=== PATIENT | female | born 2000 | race Caucasian/White ===

== ENCOUNTER 2025-08-27 20:36 | Emergency (ER) | payer OTHER, SELFPAY ==
--- NOTE | ~2025-08-27 | XR_ITS ---
CLINICAL HISTORY: right shoulder pain injury 4 view right shoulder Comparison: None provided Findings: Bones intact. No dislocations. No significant loss of joint space or osteophytes. No erosions. No radiopaque foreign body. IMPRESSION: 1. No acute fracture This document has been electronically signed by: Stefanie Carlton MD on 08/27/2025 21:52:42
[2025-08-27 20:39] VITALS: BP 116/80; PULSE 74; RESP 16; TEMP 36.9; O2SAT 98; BMI 25.6
--- NOTE | 2025-08-27 21:06 | ED_ITS ---
HPI - Extremity Problem General Chief complaint: Extremity Injury, Upper Stated complaint: right shoulder bed , moving patinets Time Seen by Provider: 08/27/25 20:51 Source: patient Mode of arrival: ambulatory Limitations: no limitations History of Present Illness ED Provider: Dr. Eric HPI Narrative: 25-year-old female history of right rotator cuff injury presented hospital today after injury of lifting the patient. Patient has had her right arm underneath the patient's armpit in attempted to lift the patient's upper when she felt a sudden pop in the right shoulder. Patient is able to abduct the right shoulder however at a certain degree she feels a clicking noise and pain upon ab duction. Related Data Allergies Allergy/AdvReac Type Severity Reaction Status Date / Time amoxicillin Allergy Intermediate Hives Verified 08/27/25 20:40 latex Allergy Intermediate Hives Verified 08/27/25 20:40 Review of Systems Review of Systems: Pertinent review of systems as mentioned in HPI. All other system otherwise negative. PMFSH Past Medical History [facility] Narrative: Medical history as mentioned in HPI Social History Social History Advance Directives: No Advance Directives Information Provided: Yes Physical Exam Exam: Exam: General: Pleasant, no distress, interacting appropriately Head: Normacephalic, atraumatic Extremities: Right supraspinatus tenderness on palpation, CMS intact in right upper extremity Psychiatric: Appropriate mood and thoughts Vital Signs: Vital Signs: Last Vital Signs Temp 98.5 F 08/27/25 20:39 Pulse 74 08/27/25 20:39 Resp 16 08/27/25 20:39 BP 116/80 08/27/25 20:39 Pulse Ox 98 08/27/25 20:39 O2 Del Method Room Air 08/27/25 20:39 BMI result Body Mass Index 25.6 Medications Administered Discontinued Medications Generic Name Dose Route Start Last Admin Trade Name Freq PRN Reason Stop Dose Admin Acetaminophen 975 mg 08/27/25 20:50 08/27/25 21:07 Acetaminophen 325 Mg Tablet PO 08/27/25 20:51 975 mg ONCE ONE Administration Ibuprofen 400 mg 08/27/25 20:50 08/27/25 21:00 Ibuprofen 400 Mg Tablet PO 08/27/25 20:51 Not Given ONCE ONE Medical Decision Making Medical Decision Making MDM Narrative: 25-year-old female presented hospital today for right shoulder pain. Based on my exam I do not think this is dislocated or have a fracture. X-ray will be obtained to rule this out. I suspect patient likely injure her right rotator cuff specifically the supraspinatus muscle. It appears that she has worsening pain when she abduct a certain point past 90 degree. Tylenol ibuprofen will be provided the patient. Patient will be discharged with close outpatient follow up with the orthopedic team. We will likely need an outpatient MRI to further assess the cause of her pain Differential Diagnosis Differential Diagnoses: The differential diagnosis associated with the presentation includes Shoulder fracture, rotator cuff injury, supraspinatus tear, labral injury Independent Interpretation I performed an independent interpretation of an: Plain X-Ray Radiology Impression Discussion of test interpretation with radiology: I have reviewed the radiologist's reading. Discharge Plan Discharge Clinical Impression: Injury of shoulder Qualifiers: Encounter type: initial encounter Laterality: right Qualified Code(s): S49.91XA - Unspecified injury of right shoulder and upper arm, initial encounter Supraspinatus sprain Qualifiers: Encounter type: initial encounter Laterality: right Qualified Code(s): S46.811A - Strain of other muscles, fascia and tendons at shoulder and upper arm level, right arm, initial encounter Patient Disposition: Home, Self-Care Instructions: Rotator Cuff Injury (ED), Rotator Cuff Injury Exercises (DC) Referrals: [facility] Orthopedic Surgeons [Provider Group] Clinical Impression: Supraspinatus sprain Print Language: Latvian
--- OUTSIDE RECORDS SUMMARY | 2025-08-27 21:13 | XMS_ITS | Patient Health Record ---
Author Organization [facility] Address [address] [place] [phone] Allergies Allergen (clinical drug ingredient) Drug/Non Drug Allergy documented on EMR Reaction Allergy Type Onset Date Status amoxicillin Amoxicillin Unknown Drug Allergy Act abdi Latex Latex Unknown Allergy Active Penicillin Unknown Drug Allergy Active Reason For Referral No Information Problems Problem Type SNOMED Code ICD Code Onset Dates Problem Status W/U Status Risk Notes Problem Acute migraine (9534048254054 08) Acute migraine (G43.909) Active confirmed Plan Of Treatment No Information Insurance Providers Payer Name Payer Address Payer Phone Subscriber Number Group Number Insured Name Patient Relationship to Insured Coverage Start Date Coverage End Date [facility] [address] [place] [address] [id number] Siria Morrison Self - patient is the insured Medications Administered Medication Instructions Date of Administration Dosage Notes ketorolac 60mg/2mL 01/22/2024 1 mL
--- OUTSIDE RECORDS SUMMARY | 2025-08-27 21:13 | XMS_ITS | Clinical Summary ---
Author Organization [facility], [facility], and [facility] Address [address] [place] [address] Care Team Providers Care Design Technology Teacher Name Role Phone Art Whalen MD Unavailable Siddhartha Ocampo MD Unavailable [phone] Malcolm Frausto Primary Care Provider [phone] Allergies Active Allergy Reactions Criticality Noted Date Comments Amoxicillin-Pot Clavulanate Anaphylaxis, Hives,Rash,SOB /Dyspnea,Wheezing/Asthma High 1998 Latex Anaphylaxis High 04/05/2016 Penicillins Anaphylaxis,Hives,Ra sh,SOB /Dyspnea,Wheezing/Asthma High 1998 Medications Topiramate (TOPAMAX OR) 0 Active STELARA 90 MG/ML Solution Prefilled Syringe 1 Active Fluticasone Furoate-Vilant heladio (BREO ELLIPTA) 100-25 MCG/INH Aerosol Powder Breath ActivatedIndic ations:Asthma Inhale See Administration Instructions. Indications: Asthma 1 Each 3 1 Active metoclopramide HCl (REGLAN) 10 MG TabletIndicati ons:Nausea and Vomiting Take 1 tablet (10 mg) by mouth 3 Times a Day As Needed for up to 7 days. 21 tablet 5 Active Active Problems Problem Noted Date Diagnosed Date Chest pain 03/04/2021 Class 2 obesity in adult 03/04/2021 Family History Medical History Relation Comments Diabetes Father Hypertension Father Myocardial Infarction Father Diabetes Mother Hypertension Mother Stroke Paternal Grandmother Relation Status Comments Father Alive Mother Alive Paternal Grandmother Social History Tobacco Use Types Packs/Day Years Used Date Smoking Tobacco: Former Cigarettes Q uit: 04/22/2017 Alcohol Use Standard Drinks/Week Comments Yes 1 (1 standard drink = 0.6 oz pur e alcohol) Comments Unknown Sex and Gender Information Value Date Recorded Sex Assigned at Female 02/28/2021 3:42 PM EDT Legal Sex Female 12:11 PM EST Gender Identity Female 02/28/2021 3:42 PM EDT Sexual Orientation Straight 02/28/2021 3: 42 PM EDT 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 Not on file Not on file Last Filed Vital Signs Vital Sign Reading Time Taken Comments Blood Pressure 120/74 04/06/2025 5:13 PM EDT Pulse 95 04/06/2025 5:13 PM EDT Temperature 36.5 C (97.7 F) 04/06/2025 5:13 PM EDT Respiratory Rate 16 04/06/2025 5:13 PM EDT Oxygen Saturation 98% 04/06/2025 5:13 PM EDT Inhaled Oxygen Concentration - - Weight 63.5 kg (140 lb) 04/06/2025 5:13 PM EDT Height 157.5 cm (5' 2 ) 04/06/2025 5:13 PM EDT Body Mass Index 25.61 04/06/2025 5:13 PM EDT Plan of Treatment Health Maintenance Due Date Last Done Comments HIV SCREENING 2011 Pap Smear 2019 IMM: HPV (1 - 3-dose SCDM series) 2025 COVID-19 Vaccine (2023-2 5 season) 2025 IMM: Influenza (#1) 2025 09/30/2017 IMM: DTap/ Tdap/ Td (3 - Td or Tdap) 10/23/2032 10/23/2022, 11/29/2017 IMM: RSV (1 - 1-dose 75+ series) 2073 Hepatitis C screening Completed 05/15/2022 IMM: Meningococcal B Aged Out No long er eligible based on patient's age to complete this topic Pneumococcal Vaccine: Pediatrics (0 to 5 Years) and At-Risk Patients (6 to 49 Years) Aged Out No longer eligible b ased on patient's age to complete this topic Insurance [facility] ESSENTIAL PLAN [id number]&[id number] [facility] [employer] 1&2&200-250 Care Teams Design Technology Teacher Relationship Specialty Start Date End Date NehemiahMalcolm quinones [address] [place] [address] PCP - General 04/06/25 Art Whalen MD [address] [place] [address] Medicine - Cardiology 02/28/21 Siddhartha Ocampo MD [address] [place] [phone] Medicine - Pulmonology 02/28/21
--- OUTSIDE RECORDS SUMMARY | 2025-08-27 21:13 | XMS_ITS | Patient Health Record ---
Author Organization [facility] JEWELRY TECHNICIAN, Address [address] [place] [address] Care Team Providers Care Software Testing Specialist Name Role Phone NO, PCP Primary Care Provider Adiel Vilchis Unavailable [phone] Allergies Allergen (clinical drug ingredient) Drug/Non Drug Allergy documented on EMR Reaction Allergy Type Onset Date Status Penicillin Unknown Drug Allergy Active Reason For Referral No Information Medications Medication SIG (Take, Route, Frequency, Duration) Notes Start Date End Date Status Breo Ellipta Active Plan Of Treatment No Information Insurance Providers Payer Name Payer Address Payer Phone Subscriber Number Group Number Insured Name Patient Relationship to Insured Coverage Start Date Coverage End Date [facility] [address] [place] [address] [id number] Stephen Mujica [facility] Child - Insured has Financial Responsibility Medical (General) History Medical History History ICD Code Asthma
[2025-08-27 22:07] VITALS: BP 116/80; PULSE 74; RESP 16; TEMP 36.9; O2SAT 98
--- NOTE | 2025-08-27 22:14 | PC.NURSE ---
Sling applied to right arm/shoulder. No evidence of fracture. Follow up with work connection/ortho. Discharged home.
== END 2025-08-27 22:07 | disposition home or self-care (01) ==
PROVIDERS: Emergency Provider Student in an Organized Health Care Education/Training Program
DX: S49.91XA Unspecified injury of right shoulder and upper arm, initial encounter (principal); S46.811A Strain of other muscles, fascia and tendons at shoulder and upper arm level, right arm, initial encounter; X50.0XXA Overexertion from strenuous movement or load, initial encounter; Y93.F2 Activity, caregiving, lifting; Y92.89 Other specified places as the place of occurrence of the external cause; Y99.0 Civilian activity done for income or pay; M25.511 Pain in right shoulder
CPT/HCPCS: 73030; 99283

== ENCOUNTER → 2025-08-27 20:59 | Outpatient (BNV) | payer OTHER, SELFPAY | PROVIDERS: Emergency Provider Student in an Organized Health Care Education/Training Program; Visit Provider Student in an Organized Health Care Education/Training Program | DX: S49.91XA Unspecified injury of right shoulder and upper arm, initial encounter (principal) | CPT/HCPCS: 73030 ==

== ENCOUNTER → 2025-08-28 13:39 | Outpatient (BNVA) | payer OTHER, SELFPAY | PROVIDERS: Visit Provider Registered Nurse | DX: Z13.89 Encounter for screening for other disorder (principal) | CPT/HCPCS: 99203 ==

== ENCOUNTER → 2025-09-06 14:33 | Outpatient (BNVA) | payer OTHER, SELFPAY | PROVIDERS: Visit Provider Physician Assistant Medical | DX: Z13.89 Encounter for screening for other disorder (principal) | CPT/HCPCS: 99213 ==

== ENCOUNTER → 2025-09-27 11:42 | Outpatient (BNVA) | payer OTHER, SELFPAY | PROVIDERS: Visit Provider Physician Assistant Medical | DX: Z13.89 Encounter for screening for other disorder (principal) | CPT/HCPCS: 99213 ==

== ENCOUNTER 2025-10-01 07:25 | Outpatient (REF) | payer OTHER, SELFPAY ==
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
--- NOTE | ~2025-10-01 | MR_ITS ---
CLINICAL HISTORY: RT ROTATOR CUFF INJURY MR right shoulder without gadolinium Comparison: None provided Findings: No acute fracture or pathologic bone lesion. No significant degenerative changes. Type 1 acromion. Mild hypertrophic distal clavicle changes flattens the opposing supraspinatus. Trace/physiological joint effusion. No rotator cuff tears. Mild supraspinatus tendinosis. The long head of biceps is intact. No tears of the glenoid labrum. IMPRESSION: No rotator cuff tear. Mild supraspinatus tendinosis. This document has been electronically signed by: Samantha Osborne MD on 10/02/2025 11:19:49
--- OUTSIDE RECORDS SUMMARY | 2025-10-01 07:27 | XMS_ITS | Clinical Summary ---
Author Organization [facility], and [facility] Address [address] [place] [address] Care Team Providers Care Asphalt Heater Tender Name Role Phone Art Whalen MD Unavailable Siddhartha Ocampo MD Unavailable [phone] Malcolm Frausto Primary Care Provider [phone] Allergies Active Allergy Reactions Criticality Noted Date [...] - 3-dose SCDM series) 2025 COVID-19 Vaccine (2024-2 6 season) 2025 IMM: Influenza (#1) 2025 09/30/2017 [...] patient's age to complete this topic Insurance [facility] ESSENTIAL PLAN 1&[id number]&200-250 [facility] E[employer]AN 1&2&200-250 Care Teams Asphalt Heater Tender Relationship Specialty Start Date End Date NehemiahMaloclm quinones [address] [place] [address] PCP - General 04/06/25 Art Whalen MD [address] [place] [address] Medicine - Cardiology 02/28/21 Siddhartha Ocampo MD [address] [place] [phone] Medicine - Pulmonology 02/28/21
--- OUTSIDE RECORDS SUMMARY | 2025-10-01 07:28 | XMS_ITS | Data Portability ---
Author Organization [place] - .[facility], [facility] Address [address] [place] [address] Assessment No assessment recorded. Plan of Treatment Reminders Order Date Submit Date Provider Last Modified By Organization Details Last Modified Time Details Appointments None recorded. Lab None recorded. Referral None recorded. Procedures None recorded. Surgeries None recorded. Imaging XR, finger(s), 2 or more view - eval for possible fx...PE: tenderness to the right 3rd finger with tenderness and swelling... VC...WET READ. 2021 022 [facility], [address] , [place], [address], 11:02:10 XR, hand, 3 or more view - eval for possible fx...PE: tenderness to the right 3rd finger with tenderness and swelling... VC...WET READ. 2021 022 [email or web address] [facility], [address] , [place], [address], 11:02:10 Medication Orders None recorded. Patient TargetsNo targets recorded. Patient Instructions Encounter Date Encounter Id Patient Instructions Last Modified By Organization Details Last Modified Time 08/23/2022 [id number] A healthy lifestyle: care instructions [email or web address] Not available 08/24/2022 11:02:10 Reason for Referral None Reported. Results Created Date Observation Date Name Description Value Unit Range Abnormal Flag Note LastModifiedBy Organization Detail LastModifiedTime 08/23/2008/23/2022 XR, hand, 3 or more view No observ ation record ed. [id number] [facility] [address] [facility], [place], [address], 08/24/2022 08:15:59 Result Notes None recorded. Problems Name Problem SNOMED Code Status Onset Date Resolution Date Notes Provider Name and Address Organization Details Recorded Time Migraine 71742504 Active 022 DANNY Terrell - .[facility] 08/23/2022 14:46:09 Problem Notes None recorded. Procedures Surgical History Date Name Laterality Status Provider Name and Address Organization Details Recorded Time . Ortho - RIGHT Upper Extremity completed Diogo DELGADO - .[facility] 08/23/2022 16:22:54 Imaging Results None recorded. Procedure Notes None recorded. Medical Equipment None Reported. Allergies Allergen ID Allergen Name Allergen Category Reaction Reaction Severity Criticality Documentation Date Start Date Code Code System Note Provider Name and Address Organization Details Recorded Time 2041359 Product containin g penicilli n (product) medicatio n Not available Not available Not available 08/23/2022 69916 8001 SNOMED DANNY Terrell - .[facility] 14:46:04 Medications Name Sig Start Date Stop Date Status Note LastModified by Organization Details LastModified Time active Not Available Not Avai lable Not Available Vitals Date Recorded Body height Body mass index (BMI) Body weight Body temperature Heart rate Respiratory rate Oxygen saturation Oxygen saturation in Arterial blood by Pulse oximetry Systolic And Diastolic Provider Name and Address Organization Details Last Updated DateTime 157.48 cm 35.7 kg/m2 36374.5 1 g 98.6 [degF] 83 /min 16 /min 98 % 98 % 108/72 mm[Hg] Diogo DELGADO - .[facility] 14:48:41 Social History Question Answer Notes LastModified by Organizat ion Details LastModified Time Tobacco Smoking Status Never Smoker DANNY Terrell - .[facility] 08/23/2022 14:46:54 RISK LEVEL - Segmentation Level 1 - Healthy [email or web address] Information not available 10/02/2022 What Was The Date Of Your Most Recent Tobacco Screening? 08/23/2022 [email or web address] Information not available 08/23/2022 Sex: Unknown Functional Status None recorded. Mental Status None recorded. Family History Relationship Description Onset Age of this Age Resolved Age Notes LastModified by Organization Details LastModified Time Father Diabetes mellitus [email or web address] Not available 2021 14:46:37 Father Hypertensive disorder Not available 2021 14:46:46 Mother Diabetes mellitus [email or web address] Not available 2021 14:46:37 Mother Hypertensive disorder [email or web address] Not available 2021 14:46:46 Medical History No medical history recorded. Gynecological HistoryNo gynecological history recorded. Obstetrics History GPAL:G 0 P 0 0 0 0 Past Encounters Encounter ID Performer Location Encounter Start Date Encounter Closed Date Diagnosis/Indication Diagnosis SNOMED-CT Code Diagnosis ICD10 Code Diagnosis IMO Codes Diagnosis Note [id number] CHAYA KRAUS_ WILLIAM [address] [phone] 08/23/2022 14:25:03 08/23/2022 15:52:54 Injury of finger 23677928 S69.91XA Fracture o f middle phalanx of finger 946430427 S62.620A Health Concerns Section Related Observation LastModified by Organization Detai ls LastModified Time None Recorded Concern Status LastModified by Organization Details LastModified Time None Recorded Advance Directives Directive None Recorded Payers Insurance Date Sequence Insurance Name Policy Number Policy Le Covered Member ID Le Member ID Guarantor Name 08/23/2022 1 [facility] [id number] Stephen Shafer Mujica [id number] AB Siria [place] Notes Date Note Type Note Provider Name and Address Organization Details Recorded Time 2 text/html Finger 3rd digit complaint (MIDDLE) - cmdReported by PatientHPIFor patient presents with, patient reportsright finger 3rd digit complaint (middle) which began a few hours ago.22 yoF c/o right middle finger pain sustained shortly prior to arrival. Pt crushed her middle finger a few hours ago after a 200lb box landed on it while in a store. Pt has some swelling and bruising around the joint. Pt has iced the finger since the injury has occurred. Pt has nerve damage from prior incident that affects her right side from the elbow to her fingers but no new paresthesiasReports limited ROM due to painOf note, [facility] in [facility] and denies dysuria, abdominal pain, vaginal bleeding, back painDenies skin wound, nail involvement wrist pain; Pt is R hand dominant Flori walker, [place] - .[facility] 08/23/2022 17:41:36 OBGyn Episode No OBEpisode recorded.
--- OUTSIDE RECORDS SUMMARY | 2025-10-01 07:28 | XMS_ITS | Patient Health Record ---
Author Organization [facility] Address [address] [place] [phone] Allergies Allergen (clinical drug ingredient) Drug/Non Drug Allergy documented on EMR Reaction Allergy Type Onset Date Status amoxicillin Amoxicillin Unknown Drug Allergy Act abdi Latex Latex Unknown Allergy Active Penicillin Unknown Drug Allergy Active Reason For Referral No Information Problems Problem Type SNOMED Code ICD Code Onset Dates Problem Status W/U Status Risk Notes Problem Acute migraine (8456878725917 08) Acute migraine (G43.909) Active confirmed Plan Of Treatment No Information Insurance Providers Payer Name Payer Address Payer Phone Subscriber Number Group Number Insured Name Patient Relationship to Insured Coverage Start Date Coverage End Date [facility] [address] [place] [address] [id number] Siria Morrison Self - patient is the insured Medications Administered Medication Instructions Date of Administration Dosage Notes ketorolac 60mg/2mL 01/22/2024 1 mL
--- OUTSIDE RECORDS SUMMARY | 2025-10-01 07:28 | XMS_ITS | Data Portability ---
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 Handouts provided with good comprehension noted. Plan: Replace 2 meals/day with protein shake, very low CHO/fat/Na 60-80 gm Pro/day diet; 64 oz VLC fluids; support groups; meal planning/timing; practice eating technique. Encouraged exercise as tolerated; Food journal daily; MVI QD, Ca+D BID OR MVI patch daily as tolerated. RTO x 1 month. -- Rosario Rich RD CDN Not available 06/22/2024 09:48:54 06/22/2024 06/22/2024 s/p Laparoscopic sleeve gastrectomy. 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 Handouts provided with good comprehension noted. Plan: Very low CHO/fat/Na 60-80 gm Pro/day diet; 64 oz VLC fluids; support groups; meal planning/timing; practice eating technique. Encouraged exercise as tolerated; Food journal daily; MVI QD, Ca+D BID OR MVI patch daily as tolerated. RTO x 1 month. -- Renetta Vanessa MS, RD, CDN Not available 11/29/2024 14:05:45 Plan of Treatment Reminders Order Date Submit Date Provider Last Modified By Organization Details Last Modified Time Details Appointments None recorded. Lab vitamin B12 + folate, serum or blood 2024 025 [email or web address] Not available 5 07:55:38 ferritin, serum or plasma 2024 025 TEMLA Not available 5 09:05:26 homocystei ne, serum or plasma 2024 025 [email or web address] Not available 5 07:55:38 iron + total iron-jessie ng capacity (TIBC), serum 2024 025 TELMA Not available 5 09:05:21 CBC w/ auto diff 2024 025 TELMA Not available 5 09:05:20 TSH, serum or plasma 2024 025 [email or web address] Not available 5 07:55:38 HbA1c (hemoglobi n A1c), blood 2024 025 TELMA Not available 5 09:05:23 insulin, serum 2024 025 TELMA Not available 5 09:05:25 lipid panel, serum 2024 025 TELMA Not available 5 09:05:21 PTH (parathyro id hormone), intact, serum or plasma 2024 025 TELMA Not available 5 09:05:27 thiamine, quant, serum or plasma 2024 025 [email or web address] Not available 5 07:55:38 vitamin D, 25-hydroxy , total, serum 2024 025 TELMA Not available 5 09:05:24 CMP, serum or plasma 2024 025 TELMA Not available 5 09:05:20 vitamin B12 + folate, serum or blood 2024 025 ehandler Not available 5 11:13:11 ferritin, serum or plasma 2024 025 ehandler Not available 5 11:13:11 homocystei ne, serum or plasma 2024 025 ehandler Not available 5 11:13:11 iron + total iron-jessie ng capacity (TIBC), serum 2024 025 ehandler Not available 5 11:13:11 CBC w/ auto diff 2024 025 ehandler Not available 5 11:13:11 TSH, serum or plasma 2024 025 ehandler Not available 5 11:13:11 HbA1c (hemoglobi n A1c), blood 2024 025 ehandler Not available 5 11:13:11 insulin, serum 2024 025 ehandler Not available 5 11:13:11 lipid panel, serum 2024 025 ehandler Not available 5 11:13:11 PTH (parathyro id hormone), intact, serum or plasma 2024 025 ehandler Not available 5 11:13:12 thiamine, quant, serum or plasma 2024 025 ehandler Not available 5 11:13:12 vitamin D, 25-hydroxy , total, serum 2024 025 ehandler Not available 5 11:13:12 CMP, serum or plasma 2024 025 ehandler Not available 5 11:13:12 zinc, serum or plasma 2024 025 ehandler Not available 5 08:39:51 vitamin B12 + folate, serum or blood 2023 024 charrison 59 Not available 4 10:52:04 ferritin, serum or plasma 2023 024 charrison 59 Not available 4 10:52:04 homocystei ne, serum or plasma 2023 024 charrison 59 Not available 4 10:52:04 iron + total iron-jessie ng capacity (TIBC), serum 2023 024 charrison 59 Not available 4 10:52:04 CBC w/ auto diff 2023 024 charrison 59 Not available 4 10:52:04 TSH, serum or plasma 2023 024 charrison 59 Not available 4 10:52:04 HbA1c (hemoglobi n A1c), blood 2023 024 charrison 59 Not available 4 10:52:04 insulin, serum 2023 024 charrison 59 Not available 4 10:52:04 lipid panel, serum 2023 024 charrison 59 Not available 4 10:52:04 PTH (parathyro id hormone), intact, serum or plasma 2023 024 charrison 59 Not available 4 10:52:04 thiamine, quant, serum or plasma 2023 024 charrison 59 Not available 4 10:52:04 vitamin D, 25-hydroxy , total, serum 2023 024 charrison 59 Not available 4 10:52:04 CMP, serum or plasma 2023 024 TELMA Not available 08:44:36 Referral None recorded. Procedures None recorded. Surgeries None recorded. Imaging None recorded. Medication Orders None recorded. Patient Targets Encounter Date Encounter Id Patient Goals Patient Target Last Modified By Organization Details Last Modified Time 06/21/2024 [id number] 1. prioritize protein 2. maintain fluid intake 3. adhere to the eating behaviors 4. incorporate physical activity as tolerated Not available 06/22/2024 09:49:18 Patient Instructions Encounter Date Encounter Id Patient Instructions Last Modified By Organization Details Last Modified Time 06/22/2024 [id number] Recommend: Bariatric diet and vitamin supplements Physical exercise to reach goal of 10K steps/day Dietitian follow-up, support group and bariatric surgery follow-up. [email or web address] Not available 06/22/2024 07:57:08 11/29/2024 [id number] Discussed protein goals and encouraged consuming at least 60 grams/day. Also encouraged including more veg/fruit. Pt. dislikes water, will only drink sf beverages. Pt. satisfied with current routine. Goal is to lose 10 more lbs Not available 11/29/2024 14:07:45 Reason for Referral None Reported. Results Created Date Observation Date Name Description Value Unit Range Abnormal Flag Note LastModifiedBy Organization Detail LastModifiedTime 04/11/2004/11/2025 CBC WITH DIFFE RENTI AL/PL ATELE T WBC 5.6 x10e3 /uL 3.4-10 .8 normal Not Available [facility] ([facility]) [address] [place], [address], 04/16/2025 09:05:19 04/11/20 25 2025 CBC WITH DIFFE RENTI AL/PL ATELE T RBC 3.94 x10e6 /uL 3.77-5 .28 normal Not Available [facility] ([facility]) [address] [facility], [place], [address], 04/16/2025 09:05:19 04/11/20 25 2025 CBC WITH DIFFE RENTI AL/PL ATELE T hemoglobin 12.0 g/dL 11.1-1 5.9 normal Not Available [facility] ([facility]) [address] [place], [address], 04/16/2025 09:05:19 04/11/2004/11/2025 CBC WITH DIFFE RENTI AL/PL ATELE T hematocrit 37.0 % 34.0-4 6.6 normal Not Available [facility] ([facility]) [address] [place], [address], 04/16/2025 09:05:19 04/11/2004/11/2025 CBC WITH DIFFE RENTI AL/PL ATELE T MCV 94 fL 79-97 normal Not Available [facility] ([facility]) [address] [place], [address], 04/16/2025 09:05:19 04/11/2004/11/2025 CBC WITH DIFFE RENTI AL/PL ATELE T MCH 30.5 pg 26.6-3 3.0 normal Not Available [facility] ([facility]) [address] [place], [address], 04/16/2025 09:05:19 04/11/2004/11/2025 CBC WITH DIFFE RENTI AL/PL ATELE T MCHC 32.4 g/dL 31.5-3 5.7 normal Not Available [facility] ([facility]) [address] [place], [address], 04/16/2025 09:05:19 04/11/2004/11/2025 CBC WITH DIFFE RENTI AL/PL ATELE T RDW 12.5 % 11.7-1 5.4 Not Available [facility] ([facility]) [address] [place], [address], 04/16/2025 09:05:19 04/11/2004/11/2025 CBC WITH DIFFE RENTI AL/PL ATELE T platelets 206 x10e3 /uL 150-45 0 normal Not Available [facility] ([facility]) [address] [place], [address], 04/16/2025 09:05:19 04/11/20 25 2025 CBC WITH DIFFE RENTI AL/PL ATELE T neutrophils 50 % not estab. normal Not Available [facility] ([facility]) [address] [place], [address], 04/16/2025 09:05:19 04/11/20 25 2025 CBC WITH DIFFE RENTI AL/PL ATELE T lymphs 40 % not estab. normal Not Available [facility] ([facility]) [address] [place], [address], 04/16/2025 09:05:19 04/11/20 25 2025 CBC WITH DIFFE RENTI AL/PL ATELE T monocytes 6 % not estab. normal Not Available [facility] ([facility]) [address] [place], [address], 04/16/2025 09:05:19 04/11/20 25 2025 CBC WITH DIFFE RENTI AL/PL ATELE T eos 3 % not estab. normal Not Available [facility] ([facility]) [address] [place], [address], 04/16/2025 09:05:19 04/11/20 25 2025 CBC WITH DIFFE RENTI AL/PL ATELE T basos 1 % not estab. normal Not Available [facility] ([facility]) [address] [place], [address], 04/16/2025 09:05:19 04/11/20 25 2025 CBC WITH DIFFE RENTI AL/PL ATELE T immature cells LOANS OFFICER Not Available [facility] ([facility]) [address] [place], [address], 04/16/2025 09:05:19 04/11/20 25 2025 CBC WITH DIFFE RENTI AL/PL ATELE T neutrophils (absolute) 2.9 x10e3 /uL 1.4-7. 0 normal Not Available [facility] ([facility]) [address] [place], [address], 04/16/2025 09:05:19 04/11/20 25 2025 CBC WITH DIFFE RENTI AL/PL ATELE T lymphs (absolute) 2.2 x10e3 /uL 0.7-3. 1 normal Not Available [facility] ([facility]) [address] [place], [address], 04/16/2025 09:05:19 04/11/20 25 2025 CBC WITH DIFFE RENTI AL/PL ATELE T monocytes(ab solute) 0.3 x10e3 /uL 0.1-0. 9 normal Not Available [facility] ([facility]) [address] [place], [address], 04/16/2025 09:05:19 04/11/20 25 2025 CBC WITH DIFFE RENTI AL/PL ATELE T eos (absolute) 0.2 x10e3 /uL 0.0-0. 4 normal Not Available [facility] ([facility]) [address] [place], [address], 04/16/2025 09:05:19 04/11/20 25 2025 CBC WITH DIFFE RENTI AL/PL ATELE T baso (absolute) 0.1 x10e3 /uL 0.0-0. 2 normal Not Available [facility] ([facility]) [address] [place], [address], 04/16/2025 09:05:19 04/11/20 25 2025 CBC WITH DIFFE RENTI AL/PL ATELE T immature granulocytes 0 % not estab. Not Available [facility] ([facility]) [address] [facility], [place], [address], 04/16/2025 09:05:19 04/11/20 25 2025 CBC WITH DIFFE RENTI AL/PL ATELE T immature grans (abs) 0.0 x10e3 /uL 0.0-0. 1 Not Available [facility] ([facility]) [address] [facility], [place], [address], 04/16/2025 09:05:19 04/11/20 25 2025 CBC WITH DIFFE RENTI AL/PL ATELE T NRBC LOANS OFFICER Not Available [facility] ([facility]) [address] [facility], [place], [address], 04/16/2025 09:05:19 04/11/20 25 2025 CBC WITH DIFFE RENTI AL/PL ATELE T hematology comments: LOANS OFFICER Not Available [facility] ([facility]) [address] [facility], [place], [address], 04/16/2025 09:05:19 04/11/20 25 04/12/2025 COMP. METAB OLIC PANEL (14) glucose 79 mg/dL 70-99 normal Not Available [facility] ([facility]) [address] [place], [address], 04/16/2025 09:05:20 04/11/20 25 04/12/2025 COMP. METAB OLIC PANEL (14) BUN 12 mg/dL 6-20 normal Not Available [facility] ([facility]) [address] [place], [address], 04/16/2025 09:05:20 04/11/20 25 04/12/2025 COMP. METAB OLIC PANEL (14) creatinine 0.61 mg/dL 0.57-1 .00 normal Not Available [facility] ([facility]) [address] [place], [address], 04/16/2025 09:05:20 04/11/20 25 04/12/2025 COMP. METAB OLIC PANEL (14) eGFR 126 mL/mi n/1.7 3 >59 normal Not Available [facility] ([facility]) [address] [facility] [place], [address], 04/16/2025 09:05:20 04/11/20 25 04/12/2025 COMP. METAB OLIC PANEL (14) BUN/creatini ne ratio 20 9-23 normal Not Available [facility] ([facility]) [address] [facility] [place], [address], 04/16/2025 09:05:20 04/11/20 25 04/12/2025 COMP. METAB OLIC PANEL (14) sodium 143 mmol/ L 134-14 4 normal Not Available [facility] ([facility]) [address] [facility] [place], [address], 04/16/2025 09:05:20 04/11/20 25 04/12/2025 COMP. METAB OLIC PANEL (14) potassium 4.2 mmol/ L 3.5-5. 2 normal Not Available [facility] ([facility]) [address] [facility] [place], [address], 04/16/2025 09:05:20 04/11/20 25 04/12/2025 COMP. METAB OLIC PANEL (14) chloride 107 mmol/ L 96-106 above high normal Not Available [facility] ([facility]) [address] [facility] [place], [address], 04/16/2025 09:05:20 04/11/20 25 04/12/2025 COMP. METAB OLIC PANEL (14) carbon dioxide, total 18 mmol/ L 20-29 below low normal Not Available [facility] ([facility]) [address] [facility] [place], [address], 04/16/2025 09:05:20 04/11/20 25 04/12/2025 COMP. METAB OLIC PANEL (14) calcium 9.3 mg/dL 8.7-10 .2 normal Not Available [facility] ([facility]) [address] [place], [address], 04/16/2025 09:05:20 04/11/20 25 04/12/2025 COMP. METAB OLIC PANEL (14) protein, total 6.6 g/dL 6.0-8. 5 normal Not Available [facility] ([facility]) [address] [place], [address], 04/16/2025 09:05:20 04/11/20 25 04/12/2025 COMP. METAB OLIC PANEL (14) albumin 4.3 g/dL 4.0-5. 0 normal Not Available [facility] ([facility]) [address] [facility] [place], [address], 04/16/2025 09:05:20 04/11/20 25 04/12/2025 COMP. METAB OLIC PANEL (14) globulin, total 2.3 g/dL 1.5-4. 5 Not Available [facility] ([facility]) [address] [facility] [place], [address], 04/16/2025 09:05:20 04/11/20 25 04/12/2025 COMP. METAB OLIC PANEL (14) bilirubin, total 0.3 mg/dL 0.0-1. 2 normal Not Available [facility] ([facility]) [address] [facility] [place], [address], 04/16/2025 09:05:20 04/11/20 25 04/12/2025 COMP. METAB OLIC PANEL (14) alkaline phosphatase 64 IU/L 44-121 normal Not Available [facility] ([facility]) [address] [facility] [place], [address], 04/16/2025 09:05:20 04/11/20 25 04/12/2025 COMP. METAB OLIC PANEL (14) AST (SGOT) 13 IU/L 0-40 normal Not Available [facility] ([facility]) [address] [facility] [place], [address], 04/16/2025 09:05:20 2120 25 04/12/2025 COMP. METAB OLIC PANEL (14) ALT (SGPT) 13 IU/L 0-32 normal Not Available [facility] ([facility]) [address] [facility] [place], [address], 04/16/2025 09:05:20 04/11/20 25 04/12/2025 LIPID PANEL cholesterol, total 141 mg/dL 100-19 9 normal Not Available [facility] ([facility]) [address] [place], [address], 04/16/2025 09:05:21 04/11/20 25 04/12/2025 LIPID PANEL triglyceride s 56 mg/dL 0-149 normal Not Available [facility] ([facility]) [address] [place], [address], 04/16/2025 09:05:21 04/11/20 25 04/12/2025 LIPID PANEL HDL cholesterol 43 mg/dL >39 normal Not Available [facility] ([facility]) [address] [place], [address], 04/16/2025 09:05:21 04/11/20 25 04/12/2025 LIPID PANEL VLDL cholesterol nithin 12 mg/dL 5-40 Not Available [facility] ([facility]) [address] [place], [address], 04/16/2025 09:05:21 04/11/20 25 04/12/2025 LIPID PANEL LDL chol calc ([facility]) 86 mg/dL 0-99 Not Available [facility] ([facility]) [address] [place], [address], 04/16/2025 09:05:21 04/11/20 25 04/12/2025 LIPID PANEL LDL calc comment: LOANS OFFICER Not Available [facility] ([facility]) [address] [place] [place], [address], 04/16/2025 09:05:21 04/11/20 25 04/12/2025 IRON AND TIBC iron bind.cap.(TI BC) 292 ug/dL 250-45 0 normal Not Available [facility] ([facility]) [address] [place] [place], [address], 04/16/2025 09:05:21 04/11/20 25 04/12/2025 IRON AND TIBC UIBC 224 ug/dL 131-42 5 normal Not Available [facility] ([facility]) [address] [place], [address], 04/16/2025 09:05:21 04/11/20 25 04/12/2025 IRON AND TIBC iron 68 ug/dL 27-159 normal Not Available [facility] ([facility]) [address] [place], [address], 04/16/2025 09:05:21 04/11/20 25 04/12/2025 IRON AND TIBC iron saturation 23 % 15-55 normal Not Available [facility] ([facility]) [address] [place], [address], 04/16/2025 09:05:21 04/11/20 25 04/12/2025 VITAM IN B12 AND FOLAT E vitamin B12 484 pg/mL 232-12 45 normal Not Available [facility] ([facility]) [address] [place], [address], 04/16/2025 09:05:22 04/11/20 25 04/12/2025 VITAM IN B12 AND FOLAT E folate (folic acid), serum 5.4 NG/mL >3.0 normal A serum folat e wm ntrat ion of less than 3.1 ng/mL is consi dered to repre sent clini nithin defic iency . Not Available [facility] ([facility]) [address] [facility], [place], [address], 04/16/2025 09:05:22 04/11/20 25 2025 HEMOG LOBIN A1C hemoglobin A1C 5.1 % 4.8-5. 6 normal Predi abete s: 5.7 - 6.4 Diabe lobito: >6.4 Glyce keo contr ol for adult s with diabe lobito: <7.0 Not Available [facility] ([facility]) [address] [facility], [place], [address], 04/16/2025 09:05:23 04/11/20 25 04/12/2025 TSH TSH 2.770 uIU/m L 0.450- 4.500 normal Not Available [facility] ([facility]) [address] [facility], [place], [address], 04/16/2025 09:05:23 04/11/2004/12/2025 VITAM IN D, 25-HY DROXY vitamin D, 25-hydroxy 36.0 NG/mL 30.0-1 00.0 Vitam in D defic iency has been defin ed by the Insti tute of Medic ine and an Endoc rine Socie ty pract ice guide line as a level of serum 25-OH vitam in D less than 20 ng/mL (1,2) . The Endoc rine Socie ty went on to furth er defin e vitam in D insuf ficie ncy as a level betwe en 21 and 29 ng/mL (2). 1. IOM (Inst itute of Medic ine). 2009. Dieta ry refer ence ankita es for calci um and D. Nicholas ludwig [place]: The [facility]io [facility] Press . 2. Kenton guzman MF, Luisa ey [place], Stewart off-F errar i LAZARO, et al. Evalu ation , treat ment, and preve ntion of vitam in D defic iency : an Endoc rine Socie ty clini nithin pract ice guide line. EM. 2010; 96(7) :1911 -30. Not Available [facility] ([facility]) [address] [place], [address], 04/16/2025 09:05:24 04/11/20 25 04/15/2025 VITAM IN B1 (THIA MINE) , BLOOD vit. B1, whole blood 104.4 nmol/ L 66.5-2 00.0 Not Available [facility] ([facility]) [address] [place], [address], 04/16/2025 09:05:24 04/11/20 25 04/12/2025 HOMOC YST(E )INE homocyst(E)i ne 8.9 umol/ L 0.0-14 .5 Not Available [facility] ([facility]) [address] [place], [address], 04/16/2025 09:05:25 04/11/20 25 04/12/2025 INSUL IN insulin 11.5 uIU/m L 2.6-24 .9 normal Not Available [facility] ([facility]) [address] [place], [address], 04/16/2025 09:05:25 04/11/20 25 04/12/2025 MASSIMO TIN ferritin 15 NG/mL 15-150 normal Not Available [facility] ([facility]) [address] [place], [address], 04/16/2025 09:05:26 04/11/20 25 04/13/2025 PTH, INTAC T PTH, intact 31 pg/mL 15-65 normal Not Available [facility] ([facility]) [address] [place], [address], 04/16/2025 09:05:27 04/09/20 25 04/09/2025 XR, upper gastr ointe vipul l serie s No observ ation record ed. [email or web address] Not Available 2024 13:08:11 Result Notes None recorded. Problems Name Problem SNOMED Code Status Onset Date Resolution Date Notes Provider Name and Address Organization Details Recorded Time Obesity 162561211 Active María Gant, MSN, ANP-BC [address], [address] [facility], [place], [place], [address] [place] [address] , [facility] 3 07:55:47 Asthma 188368953 Active María Gant, MSN, ANP-BC [address] [facility], [address], [place], [place], [address] [place] [address] , [facility] 3 07:56:01 History of sleeve gastrectom y [id number] 107 Active JAQUELINE FIELDS, LOANS OFFICER [address] [facility], [address], [address] [place] [address] , [facility] 5 14:50:07 Supraventr icular tachycardi a 3716941 Active JAQUELINE FIELDS, LOANS OFFICER [address] [place] [address], [address] [facility], [place], [place], [address] [place] [address] , [facility] 5 14:54:39 Morbid obesity 296806635 Active 2023 Sepideh Escamilla [facility] 4 08:11:13 Dietary management surveillan ce Active 2023 Rosario Rich, MS/RD [address] [facility] [facility], [address], [address] [place] [address] , [facility] 4 23:18:05 Exercises education, guidance, and counseling Active 2023 Rosario Rich, MS/RD [address], [address] [place] [address], [address] [place] [address] , [facility] 4 23:18:14 Problem Notes None recorded. Procedures Surgical History Date Name Laterality Status Provider Name and Address Organization Details Recorded Time 04/09/20 25 UGI GASTRIC SLEEVE completed María Gant, MSN, ANP- [address] [facility], [address], [place], [address], [facility] 04/09/2025 13:24:54 03/30/20 24 UGI GASTRIC SLEEVE completed Valente Marroquin MD [address] [facility], [address], [place], [address], [facility] 03/30/2024 09:09:20 03/22/20 24 LAPAROSCOPY, SURGICAL, GASTRIC RESTRICTIVE PROCEDURE; LONGITUDINAL GASTRECTOMY (SURG) completed JOZEF RODARTE [address] [facility], [address], [place], [address], [facility] 03/27/2024 14:34:47 08/23/20 23 UGI PREOP completed LEISA Mcleod, [address], [address] [facility], [place], [address], [facility] 08/24/2023 08:00:40 04/27/20 22 completed LEISA Mcleod, [address], [address] [facility], [place], [address], [facility] 08/23/2023 15:01:33 11/22/18 91 completed LEISA Mcleod, [address], [address] [facility], [place], [address], [facility] 08/23/2023 15:01:33 Imaging Results None recorded. Procedure Notes None recorded. Medical Equipment None Reported. Allergies Allergen ID Allergen Name Allergen Category Reaction Reaction Severity Criticality Documentation Date Start Date Code Code System Note Provider Name and Address Organization Details Recorded Time 56896 Product containin g penicilli n (product) medicatio n anaphylax is rash Not available Not available Not available 08/23/2023 33783 8001 SNOMED LEISA Mcleod, [address], [address], [place], [address], [facility] 15:01:17 93900 amoxicill in medicatio n anaphylax is rash Not available Not available Not available 08/23/2023 723 RxNorm LEISA Mcleod, [facility] [address], [address], [place], [address], [facility] 3 15:01:17 30779 latex environme nt,medica tion Not available Not available Not available 03/13/2024 82849 91 RxNorm María Gant, MSN, [facility] [address] [facility], [address], [place], [address], [facility] 4 14:35:54 92232 tree nut food Not available Not available Not available 03/13/2024 María Gant, MSN, [address], [address], [place], [address], [facility] 4 14:36:00 Medications Name Sig Start Date Stop Date Status Note LastModified by Organization Details LastModified Time terconazole 0.4 % vaginal cream 1 JANICE VAG EVERY DAY AT BEDTIME,X 7 DAY(S) 03/13 completed Not Available Not Available Not Available acetaminoph en 325 mg tablet 1 TABLET NEEDED ORALLY EVERY 6 HRS NEEDED FOR HEADACHE 5 DAYS 11/29 completed Not Available Not Available Not Available clindamycin HCl 300 mg capsule TAKE 1 CAPSULE BY MOUTH EVERY 8 HOURS 09/23 completed Not Available Not Available Not Available azithromyci n 250 mg tablet TAKE 2 TABLETS BY MOUTH TODAY, THEN TAKE 1 TABLET DAILY FOR 4 DAYS 08/23 completed Not Available Not Available Not Available ibuprofen 800 mg tablet TAKE 1 TABLET BY MOUTH EVERY 8 HOURS NEEDED FOR MILD PAIN FOR UP TO 10 DAYS active Not Available Not Available No t Available meloxicam 15 mg tablet PLEASE SEE ATTACHED FOR DETAILED DIRECTION S 11/29 completed Not Available Not Available Not Available prochlorper azine maleate 10 mg tablet TAKE 1 TABLET BY MOUTH EVERY 6 (SIX) HOURS IF NEEDED FOR NAUSEA OR VOMITING FOR UP TO 10 DOSES. active Not Available Not Available No t Available omeprazole 40 mg capsule,del ayed release TAKE 1 CAPSULE BY MOUTH EVERY DAY active Not Available Not Available No t Available ondansetron 8 mg disintegrat ing tablet TAKE 1 TAB ORAL 3 TIMES A DAY FOR 3 DAY(S) NEEDED FOR NAUSEA/VO MITING 11/29 completed Not Available Not Available Not Available ferrous sulfate 325 mg (65 mg iron) tablet TAKE 1 TABLET BY MOUTH 2 TIMES A DAY WITH MEALS. 08/23 completed Not Available Not Available Not Available indomethaci n 50 mg capsule 03/13 completed Not Available Not Available Not Available docusate sodium 100 mg capsule TAKE 1 CAPSULE BY MOUTH TWICE A DAY NEEDED FOR CONSTIPAT ION 08/23 completed Not Available Not Available Not Available epinephrine 0.3 mg/0.3 mL injection, auto-inject or PLEASE SEE ATTACHED FOR DETAILED DIRECTION S active Not Available Not Available No t Available ibuprofen 600 mg tablet TAKE 1 TABLET (600 MG TOTAL) BY MOUTH EVERY 6 HOURS NEEDED FOR MODERATE PAIN (SCORE 4-6) 08/23 completed Not Available Not Available Not Available sertraline 50 mg tablet TAKE 1 TABLET BY MOUTH EVERY DAY active Not Available Not Available No t Available metoclopram josiah 10 mg tablet TAKE 1 TABLET (10 MG) BY MOUTH 3 TIMES A DAY NEEDED FOR UP TO 7 DAYS. active Not Available Not Available No t Available azithromyci n 500 mg tablet TAKE 1 TABLET BY MOUTH EVERY DAY FOR 7 DAYS 08/23 completed Not Available Not Available Not Available cyclobenzap rine 5 mg tablet TAKE 1 TABLET BY MOUTH THREE TIMES A DAY NEEDED FOR MUSCLE SPASM FOR 7 DAYS 11/29 completed Not Available Not Available Not Available minoxidil active Not Available Not Sangita ilable Not Available levocetiriz ine 5 mg tablet TAKE 1 TABLET BY MOUTH EVERY DAY IN THE EVENING FOR 30 DAYS active Not Available Not Available No t Available Eliquis 2.5 mg tablet TAKE 1 TABLET BY MOUTH TWICE A DAY FOR 12 DAYS 11/29 completed Not Available Not Available Not Available Jencycla 0.35 mg tablet TAKE 1 TABLET BY MOUTH EVERY DAY active Not Available Not Available No t Available Breo Ellipta 100 mcg-25 mcg/dose powder for inhalation Inhale 1 puff every day by inhalatio n route. 11/29 completed Not Available Not Available Not Available Slynd 4 mg (28) tablet TAKE 1 TABLET BY MOUTH 1 TIME EACH DAY. active Not Available Not Available No t Available Skyrizi 150 mg/mL subcutaneou s pen injector 11/29 completed Not Available Not Available Not Available Vitals Date Recorded Body height Body mass index (BMI) Body weight Provider Name and Address Organization Details Last Updated DateTime 11/29/2024 157.48 cm 31.9 kg/m2 54349.82 g Renetta Vanessa, MS/RD [address] [facility], [address], [address] [place] [address] 11/29/2024 13:48:46 Date Recorded Body height Body mass index (BMI) Body weight Heart rate Systolic And Diastolic Provider Name and Address Organization Details Last Updated DateTime 11/29/2024 157.48 cm 31.9 kg/m2 51270.82 g 81 /min 106/66 mm[Hg] Sepideh Escamilla [facility] 13:35:21 Date Recorded Systolic And Diastolic Provider Name and Address Organization Details Last Updated DateTime 04/09/2025 108/78 mm[Hg] María Gant MSN, [facility]-[address], [address] [place] [address] 04/09/2025 12:20:35 Date Recorded Body height Body mass index (BMI) Body weight Heart rate Provider Name and Address Organization Details Last Updated DateTime 04/09/2025 157.48 cm 25.8 kg/m2 54626.27 g 79 /min Sepideh Escamilla [facility] 04/09/2025 11:54:53 Date Recorded Body height Body mass index (BMI) Body weight Provider Name and Address Organization Details Last Updated DateTime 06/21/2024 157.48 cm 31.7 kg/m2 44562.63 g Rosario Rich, MS/RD [address] [facility], [address], [address] [place] [address] Services 06/21/2024 23:18:27 Date Recorded Body height Body mass index (BMI) Body weight Heart rate Systolic And Diastolic Provider Name and Address Organization Details Last Updated DateTime 06/22/2024 157.48 cm 31.9 kg/m2 06713.82 g 85 /min 114/75 mm[Hg] Suma Coleman [facility] 07:58:25 Social History Question Answer Notes LastModified by Organizat ion Details LastModified Time Tobacco Smoking Status Former Smoker María Gant, MSN, ANP- [address] [facility], [address], [place], [address], [facility] 08/23/2023 15:01:51 Which Illicit Or Recreational Drugs Have You Used? No Information not available 08/23/2023 What Is The Highest Grade Or Level Of School You Have Completed Or The Highest Degree You Have Received? [id number] Information not available 08/23/2023 Who Is Your Employer? [employer] Information not available 08/23/2023 What Is Your Relationship Status? Single Information not available 08/23/2023 How Much Tobacco Do You Smoke? 1 PPW Information not available 08/23/2023 Sex: Female Functional Status Question Answer Note LastModified by Organizat ion Details LastModified Time What is your level of alcohol consumption? 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 [id number] Information not available 08/23/2023 Family History Relationship Description Onset Age of this Age Resolved Age Notes LastModified by Organization Details LastModified Time Paternal Grandmother Hypertensive disorder Not available 12/2022 15:01:27 Paternal Grandmother Obesity Not available 15:01:27 Paternal Grandmother Diabetes mellitus Not available 12/2022 15:01:27 Mother Hypertensive disorder Not available 12/2022 15:01:27 Mother Obesity Not availab le 08/23/2023 15:01:27 Mother Diabetes mellitus Not available 12/2022 15:01:27 Maternal Grandmother Hypertensive disorder Not available 12/2022 15:01:27 Maternal Grandmother Diabetes mellitus Not available 12/2022 15:01:27 Sister Diabetes mellitus Not available 12/2022 15:01:27 Paternal Grandfather Hypertensive disorder Not available 12/2022 15:01:27 Paternal Grandfather Obesity Not available 15:01:27 Father Hypertensive disorder Not available 12/2022 15:01:27 Father Obesity Not availab le 08/23/2023 15:01:27 Father Diabetes mellitus Not available 12/2022 15:01:27 Father Sleep apnea Not sangita ilable 08/23/2023 15:01:27 Medical History Condition Response Anxiety Disorder Y Learning disorders Y Depression Y Asthma Y Gynecological History Statement/Question Response 04/27/2022 11/22/1990 Date of LMP 07/31/2023 Obstetrics History GPAL:G 0 P 0 0 0 0 Past Encounters Encounter ID Performer Location Encounter Start Date Encounter Closed Date Diagnosis/Indication Diagnosis SNOMED-CT Code Diagnosis ICD10 Code Diagnosis IMO Codes Diagnosis Note [id number] María Gant, MSN, ANP-BC [facility] [employer] [address] [address] 08/23/2023 14:57:05 08/24/2023 08:06:48 Morbid obesity 141403008 E66.01 R53.83 Morbid Obesity with a BMI of 39.9 Bariatric surgery. The patient has received in office education on the sleeve gastrectom y and Trinh en Y procedure. As part of the pre-surgic al pathway the patient will complete the following: - An online seminar- Attend two support groups- Nutritiona l evaluation with a Mechanical Service Technician- Upper GI- Preoperati ve comprehens abdi lab work- An endoscopy/ EGD- A behavioral evaluation and clearance- A cardiac evaluation and clearance. - Additional clearances required from pulmonary The patient was educated at the time of visit that they are encouraged to lose 5% of their baseline body weight before the proposed procedure by attending monthly dietary visits. The patient was educated on the avoidance of NSAIDS and Cox2 inhibitors secondary to possible GI side effects.Fe male patients of child bearing age were advised to avoid for two years following bariatric surgery. The patient is encouraged to keep regular appointmen ts with their healthcare providers to manage any co-morbidi ties both pre & post bariatric surgery. The patient verbalized understand ing of all the aforementi oned informatio n and consult taylor sYolanda Asthma 421664369 J45.90 9 Pulmonary clearance. Compliance with inhalers recommende dYolanda [id number] GALINDO STEELE MS, RD [facility] [address] [place] [address] [place] [address] 3 08/30/2023 13:58:07 08/31/2023 12:12:50 Exercises education, guidance, and counseling [id number] Z71.89 Dietary ma nagement surveillance 037204505 Z71.3 [id number] MD SHARIF Gustafson_GENTRY BRANCH MANAGER [address] [address] [place] [address] 3 09/21/2023 15:18:38 09/21/2023 17:19:52 Morbid obesity 732104805 E66.01 Dietary ma nagement surveillance 088019706 Z71.3 Exercises education, guidance, and counseling 523545400 Z71.82 [id number] GALINDO STEELE MS, RD [facility] [address] [place] [place] [address] 3 10/05/2023 10:28:35 10/06/2023 12:15:50 Exercises education, guidance, and counseling 686694612 Z71.89 Dietary ma nagement surveillance 695596095 Z71.3 [id number] GALINDO STEELE MS, RD TSB_[facility] [address] [place], [place] [address] 3 11/02/2023 15:23:42 11/03/2023 12:47:02 Exercises education, guidance, and counseling 404291803 Z71.89 Dietary ma nagement surveillance 031953116 Z71.3 [id number] GALINDO STEELE MS, RD [facility] [address] [address] [place], [place] [address] 3 11/30/2023 15:33:19 12/01/2023 12:17:39 Exercises education, guidance, and counseling 659504309 Z71.89 Dietary ma nagement surveillance 152760341 Z71.3 [id number] MD FLORENTIN Gustafson BRANCH MANAGER [address] [facility] [place] [address] 01/20/2024 14:54:11 01/20/2024 15:27:06 Morbid obesity 356730816 E66.01 Dietary ma nagement surveillance 677032702 Z71.3 Exercises education, guidance, and counseling 370794702 Z71.82 [id number] GALINDO STEELE MS, RD B[facility] [address] [facility] [place] [address] 3 02/01/2024 10:30:02 02/02/2024 13:53:55 Exercises education, guidance, and counseling 769685545 Z71.89 Dietary ma nagement surveillance 017584554 Z71.3 [id number] GALINDO STEELE MS, RD B[facility] [address] [facility] [place] [address] 3 02/29/2024 15:35:02 03/01/2024 12:48:26 Exercises education, guidance, and counseling 910418443 Z71.89 Dietary ma nagement surveillance 184020364 Z71.3 [id number] MD FLORENTIN Gustafson BRANCH MANAGER [address] [facility] [place] [address] 03/09/2024 08:05:52 03/09/2024 08:55:35 Morbid obesity 798376500 E66.01 Dietary ma nagement surveillance 381532587 Z71.3 Pre-surger y evaluation 324603490 Z01.818 [id number] María Gant, MSN, ANP-BC FLORENTIN BRANCH MANAGER [address] [facility] [place] [address] 3 03/13/2024 13:51:22 03/13/2024 14:58:54 Asthma 413299758 J45.909 Pt to use Breo before arrival to hospital. Obesity 008091927 E66.9 Morbid obesity, BMI 38.8 and co-morbidi ties. Patient qualifies for bariatric surgery by NIH criteria. Patient is scheduled for Laparoscop ic sleeve gastrectom y at [facility] on 03/22/24All pre and post operative instructio ns reviewed with patient including dietary, activity and medication management . Good understand ing noted.PST appt confirmed for 03/17 at 7am. [id number] GALINDO STEELE MS, RD B[facility] [address] [place] [address] 03/28/2024 15:33:55 03/29/2024 14:15:10 Exercises education, guidance, and counseling 333152515 Z71.89 Dietary ma nagement surveillance 820133016 Z71.3 [id number] MD SHARIF Gustafson_ALEJA BRANCH MANAGER [address] [address] [place] [address] 3 03/30/2024 08:01:48 03/30/2024 08:52:27 Bariatric operative procedure 385172364 Z90.3 Morbid obesity 626870108 E66.01 Dietary ma nagement surveillance 095717920 Z71.3 [id number] Renetta Vanessa MS/RD B[facility] [address] [place] [address] 04/03/2024 11:19:03 04/04/2024 11:02:38 Exercises education, guidance, and counseling 699039523 Z71.89 Dietary ma nagement surveillance 607113512 Z71.3 [id number] GALINDO STEELE MS, RD [facility] [address] [place] [address] 04/18/2024 10:01:06 04/19/2024 11:51:06 Exercises education, guidance, and counseling 561489819 Z71.89 Dietary ma nagement surveillance 859583534 Z71.3 [id number] GALINDO STEELE MS, RD B_[facility] [address] [place] [address] 05/10/2024 08:49:10 05/11/2024 11:48:12 Exercises education, guidance, and counseling 097381831 Z71.89 Dietary ma nagement surveillance 449246726 Z71.3 [id number] MD FLORENTIN Gustafson BRANCH MANAGER [address] [facility] [place] [address] 05/11/2024 14:32:23 05/11/2024 15:03:53 Obesity 107311707 E66.9 Dietary ma nagement surveillance 362228947 Z71.3 Exercises education, guidance, and counseling 577429537 Z71.82 History of sleeve gastrectomy [id number] 77736 Z90.3 [id number] Rosario Rich, MS/RD [facility] [address] [facility] [address] [place] [address] 3 06/21/2024 16:30:59 06/21/2024 23:17:36 Dietary management surveillance 719710474 Z71.3 Exercises education, guidance, and counseling 538831049 Z71.82 [id number] MD FLORENTIN Gustafson BRANCH MANAGER [address] [facility] [place] [address] 06/22/2024 07:50:09 06/22/2024 08:08:59 Obesity 708781278 E66.9 Dietary ma nagement surveillance 145707574 Z71.3 Exercises education, guidance, and counseling 513045617 Z71.82 History of sleeve gastrectomy 0551909853 61289 Z90.3 Morbid obesity 777838889 E66.01 [id number] HE PATEL BRANCH MANAGER [address] [facility] [place] [address] 11/29/2024 13:31:35 11/29/2024 14:26:52 Morbid obesity 352082210 E78.2 E55.[address] f/u completed as well today.- adherence to dietary guidelines encouraged Vitamins: MVI patchAvoid NSAID useEncoura ged support group attendance .15-30 minutes of cardio 3-5x/week as tolerated encouraged .Minimum of 64 oz of water/VLCF daily recommende d. 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 See RD Vitamins- restart vitamin patch Avoid NSAID use Encouraged support group attendance . Exercise - conitnue gym workouts., Minimum of 64 oz of water/suga r free/fat free liquids daily recommende d.UGI is WNL RTO with LOANS OFFICER/RD Supraventr icular tachycardia 5689818 I47.10 F/u with cardiology . Health Concerns Section Related Observation LastModified by Organization Detai ls LastModified Time None Recorded Concern Status LastModified by Organization Details LastModified Time None Recorded Advance Directives Directive None Recorded Payers Insurance Date Sequence Insurance Name Policy Number Policy Le Covered Member ID Le Member ID Guarantor Name 08/16/2024 2 [place] Siria Secone [id number] Siria Secone 07/13/2024 1 [facility] (O) [id number] Stephen Mujica [id number] Siria Secone 09/27/2024 1 [facility] ([facility] [id number] Stephen Mujica [id number] Siria Secone 09/23/2025 1 [facility] (MEDICAID HMO) [id number] Siria Secone [id number] Siria Secone Notes Date Note Type Note Provider Name and Address Organization Details Recorded Time 4 text/html 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 Denies pain while eating. 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 Reviewed eating behaviors. Diet Recall:B- clear premier protein drink, sometimes with yogurtL- clear premier protein drink sometimes with yogurt or 1 1/2 oz chicken/fishD- 1-2oz chicken, fish with a few bites of cooked vegetables, sometimes yogurtSn- fruit, had popcornFluids- sf iced tea, crystal lightExercise-adls Rosario Rich, MS/RD [address] [facility], [address], [place], [address], [facility] 06/22/2024 09:49:31 4 text/html Patient presents s/p robotic assisted laparoscopic sleeve gastrectomy for morbid obesity on 03/22/24 month follow up s/p gastric SleevectomyTodays wt. 174.5lbs and BMI 31.9Tolerating oral intake. Exercising Daily , Having normal bowel movements regularly. Utilizing My [employer]itness Pal janice. Valente Marroquin MD [address] 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 + history of SVT preop.Drinking 64+ oz water/VLCF dailyProtein intake appears adequateVitamins: MVI patchDenies exercise regimen, physically active FT job. JAQUELINE FIELDS, HE [address] 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 Denies pain while eating. Taking MV Patch. Goal weight: 165 lbs. 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, [place] [address], [place], [address], [facility] 11/29/2024 14:07:47 5 text/html Bariatric Follow-UpReported by PatientHPIFor procedure, patient reportssleeve gastrectomy. For weight progress, patient reportsweight loss: 33 lbs since last visit.. For patient reports, patient reportsno abdominal pain,normal bowel function,no emesis,no nausea,no constipation,no food sticking,no night cough,no dysphagia,no gerd,no fever/chills,no chest pain,no shortness of breath, andgood restriction and early satiety with small meal portions.. For functional status, patient reportsgets regular exercise. Pt presents for followup s/p sleeve one year ago. She is down 33lb since her last visit. At current goal weight. She is exercising. Feels that protein intake is overall low lately. Is drinking adequately.Denies abd pain, GERD or constipation.No recent labs lately. María Gant, MSN, ANP- [address] [facility], [address], [place], [address], [facility] 04/09/2025 13:25:49 OBGyn Episode No OBEpisode recorded.
--- OUTSIDE RECORDS SUMMARY | 2025-10-01 07:28 | XMS_ITS | Data Portability ---
Author Organization [facility], G_Endocrinology_73_[facility] Address [address] [place] [id number] Assessment No assessment recorded. Plan of Treatment Reminders Order Date Submit Date Provider Last Modified By Organization Details Last Modified Time Details Appointments None recorded. Lab CBC w/ diff 2022 023 [facility], [address] [place] [address], [facility] 3, [place], [address], 14:52:50 CMP, serum or plasma 2022 023 [facility], [address] [place] [address], [facility] 3, [place], [address], 08:19:30 hepatitis (A+B+C) panel, serum 2022 023 [facility], [address] [place] [address], [address], [place], [address], 08:19:29 tb (M tuberculosi s), ifn-gamma kobi, blood 2022 023 [facility], [address] [place] [address], [address], [place], [address], 14:52:52 Referral None recorded. Procedures None recorded. Surgeries None recorded. Imaging None recorded. Medication Orders Skyrizi 150 mg/mL subcutaneou s pen injector 2022 023 TELMA [facility], [address], [address], [place], [place], [id number], 3 08:19:23 Stelara 90 mg/mL subcutaneou s syringe 2021 022 TELMA [facility], [address], [address], [place], [place], [id number], 09:07:19 Patient TargetsNo targets recorded. Patient Instructions Encounter Date Encounter Id Patient Instructions Last Modified By Organization Details Last Modified Time 01/11/2023 [id number] I have discussed or re-discussed the following including but not limited to topical steroids, topical vitamin D and A, Ultraviolet light (NB/UVB, UVB, PUVA, Excimer laser), Methotrexate, Soriatane, Cyclosporine, Biologic medications, moisturizers, skin care, tar, Keratolytics, etc. I have discussed with the patent the concerns about the use of a biologic drug and its questionable increased incidence of infection( viruses), etc.). I also discussed the risk of stopping the medication with fare, metabolic syndrome and maybe decreased recapture In reference to the use of biologic drugs, I have discussed with the patents the Pros, Cons, Risks, and Alternatives including increased risk of some infections ( URI, TB, etc), CHF, MS, Cancer (lymphoma, etc.), etc [email or web address] Not available 01/11/2023 08:17:24 Reason for Referral None Reported. Results Created Date Observation Date Name Description Value Unit Range Abnormal Flag Note LastModifiedBy Organization Detail LastModifiedTime 01/27/2001/26/2023 COMPL ETE BLOOD COUNT W/ DIFF WBC 6.2 x10e3 /uL 3.4-10 .8 normal Not Available [facility] [address], [place], [address], 01/27/2023 14:52:50 01/27/2001/26/2023 COMPL ETE BLOOD COUNT W/ DIFF hematocrit 38.7 % 34.0-4 6.6 normal Not Available [facility] [address], [place], [address], 01/27/2023 14:52:50 01/27/20 23 01/26/2023 COMPL ETE BLOOD COUNT W/ DIFF platelets 221 x10e3 /uL 150-45 0 normal Not Available [facility] [address] [place], [place] [address]r 3, [place], [address], 01/27/2023 14:52:50 01/27/20 23 01/26/2023 COMPL ETE BLOOD COUNT W/ DIFF neutrophils (absolute) 4.1 x10e3 /uL 1.4-7. 0 normal Not Available [facility] [address] [place], [place] [address]r 3, [place], [address], 01/27/2023 14:52:50 01/27/20 23 01/26/2023 COMPL ETE BLOOD COUNT W/ DIFF lymphs (absolute) 1.6 x10e3 /uL 0.7-3. 1 normal Not Available [facility] [address] [place], [place] [address]r 3, [place], [address], 01/27/2023 14:52:50 01/27/20 23 01/26/2023 COMPL ETE BLOOD COUNT W/ DIFF monocytes(ab solute) 0.3 x10e3 /uL 0.1-0. 9 normal Not Available [facility] [address] [place], [place] [address]r 3, [place], [address], 01/27/2023 14:52:50 01/27/20 23 01/26/2023 COMPL ETE BLOOD COUNT W/ DIFF eos (absolute) 0.2 x10e3 /uL 0.0-0. 4 normal Not Available [facility] [address] [place], [place] [address]r 3, [place], [address], 01/27/2023 14:52:50 01/27/20 23 01/26/2023 COMPL ETE BLOOD COUNT W/ DIFF baso (absolute) 0.1 x10e3 /uL 0.0-0. 2 normal Not Available [facility] [address] [place], [place] [address]e [address], [place], [address], 01/27/2023 14:52:50 01/27/20 23 01/26/2023 COMPL ETE BLOOD COUNT W/ DIFF neutrophils 67 % not estab. normal Not Available [facility] [address], [place], [address], 01/27/2023 14:52:50 01/27/20 23 01/26/2023 COMPL ETE BLOOD COUNT W/ DIFF lymphs 25 % not estab. normal Not Available [facility] [address], [place], [address], 01/27/2023 14:52:50 01/27/20 23 01/26/2023 COMPL ETE BLOOD COUNT W/ DIFF monocytes 5 % not estab. normal Not Available [facility] [address], [place], [address], 01/27/2023 14:52:50 01/27/20 23 01/26/2023 COMPL ETE BLOOD COUNT W/ DIFF eos 2 % not estab. normal Not Available [facility] [address], [place], [address], 01/27/2023 14:52:50 01/27/20 23 01/26/2023 COMPL ETE BLOOD COUNT W/ DIFF basos 1 % not estab. normal Not Available [facility] [address], [place], [address], 01/27/2023 14:52:50 01/27/20 23 01/26/2023 COMPL ETE BLOOD COUNT W/ DIFF RBC 4.76 x10e6 /uL 3.77-5 .28 normal Not Available [facility] [address], [place], [address], 01/27/2023 14:52:50 01/27/20 23 01/26/2023 COMPL ETE BLOOD COUNT W/ DIFF MCV 81 fL 79-97 normal Not Available [facility] [address], [place], [address], 01/27/2023 14:52:50 01/27/20 23 01/26/2023 COMPL ETE BLOOD COUNT W/ DIFF MCH 26.7 pg 26.6-3 3.0 normal Not Available [facility] [address], [place], [address], 01/27/2023 14:52:50 01/27/20 23 01/26/2023 COMPL ETE BLOOD COUNT W/ DIFF MCHC 32.8 g/dL 31.5-3 5.7 normal Not Available [facility] [address], [place], [address], 01/27/2023 14:52:50 01/27/20 23 01/26/2023 COMPL ETE BLOOD COUNT W/ DIFF RDW 16.6 % 11.7-1 5.4 high Not Available [facility] [address], [place], [address], 01/27/2023 14:52:50 01/27/20 23 01/26/2023 COMPL ETE BLOOD COUNT W/ DIFF Unknown Analyte 12.7 g/dL 11.1-1 5.9 normal Not Available [facility] [address], [place], [address], 01/27/2023 14:52:50 01/27/20 23 01/26/2023 COMPL ETE BLOOD COUNT W/ DIFF immature granulocytes 0 % not estab. normal Not Available [facility] [address], [place], [address], 01/27/2023 14:52:50 01/27/20 23 01/26/2023 COMPL ETE BLOOD COUNT W/ DIFF immature grans (abs) 0.0 x10e3 /uL 0.0-0. 1 normal Not Available [facility] [address], [place], [address], 01/27/2023 14:52:50 01/27/20 23 01/26/2023 CMET glucose 80 mg/dL 70-99 [facility] [address] [facility] [address] [address], [place], [address], 01/27/2023 14:52:51 01/27/20 23 01/26/2023 CMET BUN 16 mg/dL 6-20 normal Not Available [facility] [address] [place], [place] [address]e [address], [place], [address], 01/27/2023 14:52:51 01/27/20 23 01/26/2023 CMET creatinine 0.71 mg/dL 0.57-1 .00 normal Not Available [facility] [address] [place], [place] [address]e [address], [place], [address], 01/27/2023 14:52:51 01/27/20 23 01/26/2023 CMET eGFR 122 mL/mi n/1.7 3 >59 normal Not Available [facility] [address] [place], [place] [address]e [address], [place], [address], 01/27/2023 14:52:51 01/27/20 23 01/26/2023 CMET BUN/creatini ne ratio 23 9-23 normal Not Available [facility] [address], [place], [address], 01/27/2023 14:52:51 01/27/20 23 01/26/2023 CMET sodium 141 mmol/ L 134-14 4 normal Not Available [facility] [address] [place], [place] [address]e [address], [place], [address], 01/27/2023 14:52:51 01/27/20 23 01/26/2023 CMET potassium 5.1 mmol/ L 3.5-5. 2 normal Not Available [facility] [address] [place], [place] [address]e [address], [place], [address], 01/27/2023 14:52:51 01/27/20 23 01/26/2023 CMET chloride 104 mmol/ L 96-106 normal Not Available [facility] [address], [place], [address], 01/27/2023 14:52:51 01/27/20 23 01/26/2023 CMET carbon dioxide, total 25 mmol/ L 20-29 normal Not Available [facility] [address] [place], [place] [address]e [address], [place], [address], 01/27/2023 14:52:51 01/27/20 23 01/26/2023 CMET calcium 9.6 mg/dL 8.7-10 .2 normal Not Available [facility] [address] [place], [place] [address]r 3, [place], [address], 01/27/2023 14:52:51 01/27/20 23 01/26/2023 CMET protein, total 6.9 g/dL 6.0-8. 5 normal Not Available [facility] [address] [place], [place] [address]r 3, [place], [address], 01/27/2023 14:52:51 01/27/20 23 01/26/2023 CMET albumin 4.4 g/dL 3.9-5. 0 normal Not Available [facility] [address] [place], [place] [address]r 3, [place], [address], 01/27/2023 14:52:51 01/27/20 23 01/26/2023 CMET globulin, total 2.5 g/dL 1.5-4. 5 normal Not Available [facility] [address] [place], [place] [address]e [address], [place], [address], 01/27/2023 14:52:51 01/27/20 23 01/26/2023 CMET A/G ratio 1.8 1.2-2. 2 normal Not Available [facility] [address] [place], [place] [address]e [address], [place], [address], 01/27/2023 14:52:51 01/27/20 23 01/26/2023 CMET bilirubin, total 0.4 mg/dL 0.0-1. 2 normal Not Available [facility] [address], [place], [address], 01/27/2023 14:52:51 01/27/20 23 01/26/2023 CMET alkaline phosphatase 107 IU/L 44-121 normal Not Available [facility] [address], [place], [address], 01/27/2023 14:52:51 01/27/20 23 01/26/2023 CMET AST (SGOT) 16 IU/L 0-40 normal Not Avail able [facility] [address] [place] [address] 3, [place], [address], 01/27/2023 14:52:51 01/27/20 23 01/26/2023 CMET ALT (SGPT) 18 IU/L 0-32 normal Not Avail able [facility] [address] [place] [address] 3, [place], [address], 01/27/2023 14:52:51 01/27/20 23 01/26/2023 ACUTE HEPAT ITIS PANEL sent to ref lab[I] No Value Not Available [facility] [address] [place] [address] 3, [place], [address], 01/27/2023 14:52:52 01/27/20 23 01/26/2023 ACUTE HEPAT ITIS PANEL hep A Ab, IgM Negati ve negati ve normal Not Available [facility] [address] [place] [address] 3, [place], [address], 01/27/2023 14:52:52 01/27/20 23 01/26/2023 ACUTE HEPAT ITIS PANEL HBsAg screen Negati ve negati ve normal Not Available [facility] [address] [place] [address] 3, [place], [address], 01/27/2023 14:52:52 01/27/20 23 01/26/2023 ACUTE HEPAT ITIS PANEL hep B core Ab, IgM Negati ve negati ve normal Not Available [facility] [address] [facility] [address], [place], [address], 01/27/2023 14:52:52 01/27/20 23 01/26/2023 ACUTE HEPAT ITIS PANEL HCV Ab Non Reacti ve non reacti ve normal Not Available [facility] [address] [facility] [address], [place], [address], 01/27/2023 14:52:52 01/27/2001/26/2023 ACUTE HEPAT ITIS PANEL interpretati on: Commen t Not infec gwendolyn with HCV unles s early or acute infec tion is suspe cted (whic h may be delay ed in an immun ocomp romis ed indiv idual ), or other evide nce exist s to indic ate HCV infec tion. Not Available [facility] [address], [place], [address], 01/27/2023 14:52:52 01/27/20 23 01/26/2023 QUANT IFERO N PM - TB GOLD PLUS quantiferon incubation INCUBA TION PERFOR MED. Not Available [facility] [address], [place], [address], 01/27/2023 14:52:52 01/27/20 23 01/26/2023 QUANT IFERO N PM - TB GOLD PLUS quantiferon- TB gold plus NEGATI VE negati ve normal No respo nse to M tuber culos is antig ens detec gwendolyn. Infec tion with M tuber culos is is unlik ryley, but high risk indiv idual s shoul d be consi dered for addit ional testi ng (ATS/ IDSA/ CDC Clini nithin Pract ice Guide lines , 2017) . The refer ence range is an Antig en minus Nil resul t of <0.35 IU/mL . Chemi lumin escen ce immun oassa y metho dolog y Not Available [facility] [address] [facility] [address], [place], [address], 01/27/2023 14:52:52 01/27/20 23 01/26/2023 QUANT IFERO N PM - TB GOLD PLUS quantiferon criteria COMMEN T Quant iFERO N-TB Gold Plus is a quali tativ e indir ect test for M tuber culos is infec tion (incl uding disea se) and is inten ded for use in conju nctio n with risk asses sment , radio graph y, and other medic al and diagn ostic evalu ation s. The Quant iFERO N-TB Gold Plus resul t is deter mined by subtr actin g the Nil value from eithe r TB antig en (Ag) value . The Mitog en tube serve s as a contr ol for the test. Not Available [facility] [address] [facility] [address], [place], [address], 01/27/2023 14:52:52 01/27/20 23 01/26/2023 QUANT IFERO N PM - TB GOLD PLUS quantiferon TB1 Ag value 0.00 IU/mL Not Available [facility] [address], [place], [address], 01/27/2023 14:52:52 01/27/20 23 01/26/2023 QUANT IFERO N PM - TB GOLD PLUS quantiferon TB2 Ag value 0.00 IU/mL Not Available [facility] [address], [place], [address], 01/27/2023 14:52:52 01/27/20 23 01/26/2023 QUANT IFERO N PM - TB GOLD PLUS quantiferon nil value 0.00 IU/mL Not Available [facility] [address], [place], [address], 01/27/2023 14:52:52 01/27/20 23 01/26/2023 QUANT IFERO N PM - TB GOLD PLUS quantiferon mitogen value >10.00 IU/mL Not Available [facility] [address], [place], [address], 01/27/2023 14:52:52 Result Notes None recorded. Problems Name Problem SNOMED Code Status Onset Date Resolution Date Notes Provider Name and Address Organization Details Recorded Time Flexural psoriasis 636190032 Active 2014 Descriptio n: OTHER PSORIASIS AND SIMILAR DISORDERS Not Available [facility] 3 14:49:03 Notes:Some problems listed i n Documents: #[id number], #[id number] could not be added to this patient's chart. Please review these documents and add these problems to the patient's chart manually as needed. Problem Notes None recorded. Medical Equipment None Reported. Allergies Allergen ID Allergen Name Allergen Category Reaction Reaction Severity Criticality Documentation Date Start Date Code Code System Note Provider Name and Address Organization Details Recorded Time 375618 amoxicill in medicatio n Not available Not available Not available 09/10/20212016 723 RxNorm Sever ity: Criti nithin Entry Date: 03/31 Not Available [facility] 1 15:26:14 Medications Name Sig Start Date Stop Date Status Note LastModified by Organization Details LastModified Time terconazole 0.4 % vaginal cream 1 JANICE VAG EVERY DAY AT BEDTIME,X7 DAY(S) active Not Available Not Available No t Available acetaminophe n 325 mg tablet TAKE 2 TABLETS (650 MG TOTAL) BY MOUTH EVERY 6 (SIX) HOURS NEEDED FOR PAIN, MILD (SCORE 1-3) active Not Available Not Available Not Available prednisone 10 mg tablet 5 TABLET STAT, THEN 4 TAB ON DAY 2, THEN 3 TAB ON DAY 3, THEN 2 TAB ON DAY 4, THEN 1 TAB ON DAY 5 active Not Available Not Available No t Available cetirizine 10 mg tablet TAKE 1 TABLET BY MOUTH EVERY DAY active Not Available Not Available No t Available azithromycin 250 mg tablet TAKE 2 TABLETS BY MOUTH TODAY, THEN TAKE 1 TABLET DAILY FOR 4 DAYS active Not Available Not Available No t Available topiramate 25 mg tablet TAKE 5 TABS BY MOUTH NIGHTLY. active Not Available Not Available No t Available metronidazol e 500 mg tablet active Not Available Not Available Not Available ferrous sulfate 325 mg (65 mg iron) tablet TAKE 1 TABLET BY MOUTH 2 TIMES A DAY WITH MEALS. active Not Available Not Available Not Available docusate sodium 100 mg capsule TAKE 1 CAPSULE BY MOUTH TWICE A DAY NEEDED FOR CONSTIPATIO N active Not Available Not Available No t Available montelukast 10 mg tablet TAKE 1 TABLET BY MOUTH EVERY DAY active Not Available Not Available No t Available epinephrine 0.3 mg/0.3 mL injection, auto-injecto r 1 INJECTION DIRECTED FOR ACUTE ALLERGY active Not Available Not Available No t Available ibuprofen 600 mg tablet TAKE 1 TABLET (600 MG TOTAL) BY MOUTH EVERY 6 HOURS NEEDED FOR MODERATE PAIN (SCORE 4-6) active Not Available Not Available No t Available albuterol sulfate HFA 90 mcg/actuatio n aerosol inhaler INHALE 2 PUFFS BY MOUTH EVERY 6 HOURS NEEDED FOR WHEEZE active Not Available Not Available No t Available ondansetron 4 mg disintegrati ng tablet PLEASE SEE ATTACHED FOR DETAILED DIRECTIONS active Not Available Not Available N ot Available fluticasone propionate 50 mcg/actuatio n nasal spray,suspen liz 2 (TWO) SPRAY EACH NOSTRIL DAILY active Not Available Not Available No t Available azithromycin 500 mg tablet TAKE 1 TABLET BY MOUTH EVERY DAY FOR 7 DAYS active Not Available Not Available No t Available Sprintec (28) 0.25 mg-0.035 mg tablet active Not Available Not Available Not Available Stelara 90 mg/mL subcutaneous syringe inject 90 mg every 3 months 2021 active Not Available Not Available Not Avai lable Bharati 30 mg tablet active Not Available Not Available Not Available Breo Ellipta 100 mcg-25 mcg/dose powder for inhalation TAKE 1 PUFF BY INHALATION DAILY FOR 90 DAYS. active Not Available Not Available No t Available Skyrizi 150 mg/mL subcutaneous pen injector inject 150mg every 12 weeks active Not Available Not Available No t Available Vitals None Recorded Social History Question Answer Notes LastModified by Organizat ion Details LastModified Time Tobacco Smoking Status Never Smoker Not Available [facility] 09/23/2021 21:54:40 What Was The Date Of Your Most Recent Tobacco Screening? 01/16/2021 [email or web address] Information not available 09/23/2021 Sex: Unknown Functional Status None recorded. Mental Status None recorded. Family History Relationship Description Onset Age of this Age Resolved Age Notes LastModified by Organization Details LastModified Time Maternal Grandmother Alzheimer's disease pt. added direct ly (01/13) [email or web address] Not available 01/13/2022 12:42:39 Maternal Grandmother Diabetes mellitus pt. added direct ly (01/13) [email or web address]-13 Not available 01/13/2022 12:42:54 Mother Diabetes mellitus pt. added direct ly (01/13) [email or web address]-13 Not available 01/13/2022 12:42:54 Mother Asthma pt. added direct ly (01/13) [email or web address]-13 Not available 01/13/2022 12:43:04 Mother Kidney disease pt. added direct ly (01/13) [email or web address]-13 Not available 01/13/2022 12:43:14 Father Diabetes mellitus pt. added direct ly (01/13) [email or web address]-13 Not available 01/13/2022 12:42:54 Father Kidney disease pt. added direct ly (01/13) [email or web address]-13 Not available 01/13/2022 12:43:14 Sister Asthma pt. added direct ly (01/13) [email or web address]-13 Not available 01/13/2022 12:43:04 Medical History No medical history recorded. Gynecological HistoryNo gynecological history recorded. Obstetrics History GPAL:G 0 P 0 0 0 0 Past Encounters Encounter ID Performer Location Encounter Start Date Encounter Closed Date Diagnosis/Indication Diagnosis SNOMED-CT Code Diagnosis ICD10 Code Diagnosis IMO Codes Diagnosis Note [id number] Ella Sheppard NP [facility] [address] [place] [address] 01/15/2022 08:27:57 01/15/2022 09:08:07 Plaque psoriasis 793976176 L40.0 Stelara 90 mg , still flaring quite a bitNever clears her thick scalp psroasis.C louis Huang led all topicalsFa iled nUVBLab work completed and WNL Scalp and trunk - thick plaques [id number] Regis Green MD [facility] [address] [place] [address] 01/11/2023 07:44:15 01/11/2023 08:33:04 Psoriasis vulgaris 967646055 L40.0 flared after stopping Skyrizi , will restart now not breast feeding or . The patent's use of their biologic drug has: ( ) has problems with medication s, and they have had : ( ) no problems with medication s, ( ) the following problems, and ( X) we have re-discuss ed all the pros, cons, risks, and alternativ es.(X) discussedv accination s 1. Add listed Medication s (x) skyrizi 4. Labs ( ), bact ( ), Viral ( ), Micro ( ), Blood x( ) 5. Biologics Discussed (x ) 6. Psoriasis and Medication care discussed (X) 7. continue current therapy (X) I have discussed their diagnosis, outlined treatment plans, photo protection andskin care with the patent. A specific discussion in reference to their illness hasbeen undertaken . The patent has been urged to call the office immediatel y with any concerns. If they deem the problem as an emergency, they should call or go tothe emergency room immediatel y. Pt verbalized their agreement andunderst anding. Health Concerns Section Related Observation LastModified by Organization Detai ls LastModified Time None Recorded Concern Status LastModified by Organization Details LastModified Time None Recorded Advance Directives Directive None Recorded Payers Insurance Date Sequence Insurance Name Policy Number Policy Le Covered Member ID Le Member ID Guarantor Name 01/07/2023 1 [facility] [id number] Siria Secone [id number] Siria Secone 01/07/2023 1 [facility] [id number] Stephen Mujica [id number] Siria Secone Notes Date Note Type Note Provider Name and Address Organization Details Recorded Time 2 text/html plaque psoriasiscurrently on stelara 90 mgdoes not ever clearhas significant scalp and trunk plaques Ella Sheppard NP [address] [facility],[address], [place], [address], [facility] 01/15/2022 09:08:01 3 text/html psoriasis follow upStelara restart pt stopped skyrizi based upon now not , has flared and wants to restart Regis Green MD [address] [place] [address],[address], [place], [address], [facility] 01/11/2023 08:19:43 OBGyn Episode No OBEpisode recorded.
--- OUTSIDE RECORDS SUMMARY | 2025-10-01 07:28 | XMS_ITS | Patient Health Record ---
Author Organization [facility], Address [address] [place] [address] Care Team Providers Care Political Reporter Name Role Phone NO, PCP Primary Care Provider Adiel Vilchis Unavailable [phone] Allergies Allergen (clinical drug ingredient) Drug/Non Drug Allergy documented on EMR Reaction Allergy Type Onset Date Status Penicillin Unknown Drug Allergy Active Results Component Value Reference Range Notes BD Veritor SARS-CoV-2 Rapid Antigen Reviewed date:09/17/2025 11:01:52 AM Interpretation:Negative Performing Lab: Notes/Report: Negative SARS COV2 Ag neg Negative - Reason For Referral No Information Medications Medication SIG (Take, Route, Frequency, Duration) Notes Start Date End Date Status Cyclobenzaprine HCl 10 MG Oral; Duration : 10 Days Not-Taking Sertraline HCl 50 MG Oral; Duration: 30 Days Not-Taking Breo Ellipta Not-Joel ing Vital Signs Heart Rate 79 /min 09/17/2025 Temperature 98.2 degrees Fahrenheit 09/17/2025 Respiratory Rate 16 /min 09/17/2025 Blood pressure diastolic 70 mm Hg 09/17/2025 Oximetry 98 % 09/17/2025 Height 62 in 09/17/2025 Blood pressure systolic 120 mm Hg 09/17/2025 Weight 185 lbs 09/17/2025 BMI 33.83 kg/m2 09/17/2025 Encounters Encounter Location Date Provider Diagnosis [facility], [address] [place] [address] 09/17/2025 Adiel Zuniga Viral URI J06.9 Assessments Encounter Date Diagnosis (ICD Code) Assessment Notes Treatment Notes Treatment Clinical Notes Section Notes 09/17/2025 Viral URI (ICD-10 - J06.9) Plan Of Treatment No Information Insurance Providers Payer Name Payer Address Payer Phone Subscriber Number Group Number Insured Name Patient Relationship to Insured Coverage Start Date Coverage End Date [facility] [address] [place] [address] [id number] Siria Morrison Self - patient is the insured Medical (General) History Medical History History ICD Code Asthma
== END 2025-10-01 07:26 | disposition home or self-care (01) ==
LOC: HO.MRI 07:25
PROVIDERS: Visit Provider Physician Assistant Medical
DX: S46.001D Unspecified injury of muscle(s) and tendon(s) of the rotator cuff of right shoulder, subsequent encounter (principal)
CPT/HCPCS: 73221

== ENCOUNTER → 2025-10-01 07:27 | Outpatient (BNV) | payer OTHER, SELFPAY | PROVIDERS: Visit Provider Radiology Diagnostic Radiology | DX: M75.121 Complete rotator cuff tear or rupture of right shoulder, not specified as traumatic (principal); M75.31 Calcific tendinitis of right shoulder | CPT/HCPCS: 73221 ==

== ENCOUNTER → 2025-10-04 08:14 | Outpatient (BNVA) | payer OTHER, SELFPAY | PROVIDERS: Visit Provider Physician Assistant Medical | DX: Z13.89 Encounter for screening for other disorder (principal) | CPT/HCPCS: 99213 ==

== ENCOUNTER → 2025-10-22 14:58 | Outpatient (BNVA) | payer OTHER, SELFPAY | PROVIDERS: Visit Provider Emergency Medicine | DX: Z13.89 Encounter for screening for other disorder (principal) | CPT/HCPCS: 99214 ==

== ENCOUNTER 2025-10-22 15:45 | Emergency (ER) | payer OTHER, SELFPAY ==
--- NOTE | ~2025-10-22 | MR_ITS ---
CLINICAL HISTORY: question nerve impingement. Right-sided 4,5 numb MR Cervical Spine WO Contrast COMPARISON: CT/AZ/SR - CT CERVICAL SPINE WITHOUT IV CONTRAST - 10/22/25 16:01 EST FINDINGS: No acute fracture. Vertebrae are normally aligned. Normal spinal cord caliber and signal. Unremarkable soft tissues. C2-C3: No disc herniation. No significant stenosis. C3-C4: No disc herniation. No significant stenosis. C4-C5: No disc herniation. No significant stenosis. C5-C6: Small posterior central zone disc protrusion. Mild spinal canal stenoses. C6-C7: No disc herniation. No significant stenosis. C7-T1: No disc herniation. No significant stenosis. T1-T2: Disc desiccation. No disc herniation. No significant stenosis. IMPRESSION: No acute findings. Mild degenerative changes. No spinal cord or nerve impingement. This document has been electronically signed by: Jose Moncada MD on 10/22/2025 21:56:26
--- NOTE | ~2025-10-22 | CT_ITS ---
EXAMINATION: CT CERVICAL SPINE WITHOUT CONTRAST CLINICAL INFORMATION: Right arm pain and numbness. COMPARISON: None. TECHNIQUE: Spiral CT imaging of the cervical spine performed in axial plane without contrast. Multiplanar reformatted images were constructed from the axial data set. This CT examination was performed using dose optimization techniques as appropriate, variously including the following: *Automated exposure control *Adjustment of mA and/or kV according to patient size (this includes techniques or standardized protocols for targeted exams where dose is matched to indication/reason for exam; i.e. extremities or head) *Use of iterative reconstruction technique FINDINGS: CORONAL ALIGNMENT: -No significant scoliosis. SAGITTAL ALIGNMENT: -There is straightening of the normal lordosis. -There is no significant subluxation. C1-C2 AND CRANIOCERVICAL JUNCTION: -Intact and normally aligned. VERTEBRAL BODIES AND FACETS: -No fracture, compression deformity, or suspicious bone lesion. -The facets are normally aligned. No significant facet arthrosis. DISCS: -Preserved throughout. CENTRAL CANAL: -No evidence of high-grade central canal narrowing or focal significant disc herniation allowing for modality limitations. PREVERTEBRAL AND PARAVERTEBRAL SOFT TISSUES: -No prevertebral or paravertebral soft tissue edema or abnormal fluid collection. -Normal-appearing thyroid. -No mass or abnormal lymph nodes within the neck. LUNG APICES: -Clear bilaterally. CT/CT cervical spine wo IV con IMPRESSION: 1. Essentially normal CT of the cervical spine. No etiology evident for right arm pain and numbness. No large disc herniation, significant central canal or foraminal encroachment identified. Electronically signed by: Ifeanyi Oseguera MD 10/22/2025 04:20 PM TAM
--- NOTE | 2025-10-22 15:49 | ED_ITS ---
HPI - General Adult General Chief complaint: General Medical Stated complaint: ?Seizure Time Seen by Provider: 10/22/25 19:33 History of Present Illness HPI narrative: patient is a 25-year-old female presented today with having pain to the ulnar aspect of the right hand. 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 There was some pain in the right shoulder. Patient denies any bowel urinary incontinence denies any focal weakness pain is worse with movement. Patient denies any previous trauma. Had x-ray done that night which was grossly negative. Had an MRI done on outpatient basis which was also negative. Now is developing numbness to the last 2 digits of the finger. No fever no chills. No headache. No neck pain. Patient is from home. No significant past medical history. Related Data Previous Rx's ?Medication ?Instructions ?Recorded cyclobenzaprine 10 mg tablet 10 mg PO BEDTIME PRN musc le spasm 09/06/25 #10 tabs indomethacin 50 mg capsule 50 mg PO BID #60 caps 09/06 lidocaine 5 % topical patch 1 patch topical .COMPLEX p ain #30 09/06/25 ea Allergies Allergy/AdvReac Type Severity Reaction Status Date / Time amoxicillin Allergy Intermediate Hives Verified 08/27/25 20:40 latex Allergy Intermediate Hives Verified 08/27/25 20:40 Penicillins (PCN) Allergy Hives Verified 10/22/25 15:52 Review of Systems 2 Review of Systems: No chest pain or shortness breath no diaphoresis Yes all other systems are reviewed and are negative PMFSH Past Medical History Attestation statement: The following information was validated with the patient. Social History Social History Advance Directives: No Advance Directives Information Provided: Yes Do you have a plan to hurt others: No Plan Physical Exam ED Exam Exam: Appearance: Alert. Oriented X3. No acute distress. Eyes: Pupils equal, round and reactive to light. ENT: Pharynx normal. Neck: Normal inspection. Neck supple. No lymph nodes noted. No crepitus CVS: Normal heart rate and rhythm. Pulses normal. Normal S1 and S2 Respiratory: No respiratory distress. Breath sounds normal. No Wheezing. No rales Abdomen: Soft and nontender. No rigidity. No distention. good BS x4 Skin: Skin warm and dry. Normal skin color. Normal skin turgor. Extremities: No lower extremity edema. Neurovascular intact to all extremities. No Lacerations. No Rash Neuro: Oriented X 3. No motor deficit. No sensory deficit. Moving all extermities. No slurred speech Vital Signs: Vital Signs - 24 hr 10/22/25 15:50 Temperature 98 F Pulse Rate 112 H Respiratory Rate 18 Blood Pressure 158/74 H Pulse Oximetry 98 Oxygen Delivery Method Room Air BMI result Body Mass Index 26.5 Course Course Course Narrative: This is a rapid medical exam performed by Priya Venegas NP: Additional HPI, ROS, PE not included below will be deferred to primary provider. Patient is a 25y/o F presenting from [facility] for evaluation of right arm tremors for the past 2 weeks. 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 Going for EMG on the but states her 5th finger is numb and she has shooting pain going up R arm. Plan: CT Cspine Medical Decision Making Medical Decision Making [facility] Narrative: Numbness to the 4th and 5th digits on the right side. Question ulnar nerve compression. A CT of the C-spine was ordered at triage. Grossly was negative for any acute evidence of fracture. I reviewed patient's old record an outpatient radiology's record had an MRI of the shoulder done which was grossly negative. Had x-ray of the shoulder done which was also negative. Patient in no acute distress. Will get a MRI of the cervical spine to look for radiculopathy. Currently in stable condition. MRI of the cervical spine was done. No overt radiculopathy noted. Patient to be discharged home. Well-appearing no acute distress. Patient has pain with the tremor and movement. I do not think this is secondary to a seizure. Patient neurologically intact at this point. In stable condition. We will have patient follow-up on an outpatient basis. Differential Diagnosis Differential Diagnoses: The differential diagnosis associated with the presentation includes Neurapraxia, cervical radiculopathy, rotator cuff issues Lab Data [facility] Lab Attestation statement: I reviewed the patient's lab results. 10/22/25 19:52 10/22/25 19:52 Labs: Lab Results 10/22/25 Range/Units 19:52 WBC 9.0 (4.8-10.8) X10*3/uL RBC 4.65 (4.20-5.50) X10*6/uL Hgb 13.8 (12.0-16.0) g/dl Hct 40.7 (37.0-47.0) % MCV 87.5 (80.0-98.0) fL MCH 29.7 (27.0-33.0) pg MCHC 33.9 (31.0-35.0) g/dl RDW 13.1 (11.0-16.0) % Plt Count 221 (160-400) X10*3/uL MPV 10.6 (9.4-12.3) fL Immature Gran % (Auto) 0.3 (0.0-0.4) % Neut % (Auto) 64.8 (45-73) % Lymph % (Auto) 27.3 (20-40) % [place] % (Auto) 5.1 (2-11) % Eos % (Auto) 1.9 (0-4) % Baso % (Auto) 0.6 (0-2) % Lymph # (Auto) 2.5 (1.2-4.9) X10*3/uL [place] # (Auto) 0.5 (0.1-1.2) X10*3/uL Eos # (Auto) 0.2 (0.0-0.4) X10*3/uL Baso # (Auto) 0.1 (0.0-0.2) X10*3/uL Abs Immat Gran (auto) 0.03 (0.00-0.03) X10*3/uL Absolute Neuts (auto) 5.8 (2.0-8.3) x10*3/uL Absolute Nucleated RBC 0.000 (0.0-0.012) X10*3/uL Nucleated RBC % (auto) 0.0 (0.0-0.2) /100WBC Sodium 142 (135-145) mmol/L Potassium 3.8 (3.3-5.1) mmol/L Chloride 110 H (96-108) mmol/L Carbon Dioxide 25 (22-29) mmol/L Anion Gap 11 L (12-20) BUN 19 H (9-16) mg/dL Creatinine 0.70 (0.5-1.4) mg/dL Estim Creat Clear Calc 107.4 Estimated GFR > 60 Random Glucose 119 H (60-115) mg/dL Calcium 9.6 (8.4-10.2) mg/dL Beta HCG, Quant < 2 mIU/mL Independent Interpretation I performed an independent interpretation of an: CT Scan ( cervical spine was negative) Radiology Impression Discussion of test interpretation with radiology: I have reviewed the radiologist's reading. Discharge Plan Discharge Clinical Impression: Rotator cuff (capsule) sprain Patient Disposition: Home, Self-Care Instructions: Shoulder Sprain (ED) Prescriptions: No Action cyclobenzaprine 10 mg tablet 10 mg PO BEDTIME PRN (Reason: muscle spasm) Qty: 10 0RF indomethacin 50 mg capsule 50 mg PO BID Qty: 60 3RF Rx Instructions: administer with food or milk lidocaine 5 % adhesive patch,medicated 1 patch topical .COMPLEX Qty: 30 1RF Rx Instructions: 1 patch topically 1 patch daily q 12 hours; leave on most painful area for up to 12 hrs Referrals: [facility] [Provider Group] Referral Note: follow-up kerrie [facility] Forms: Work/School Release Print Language: Irish
[2025-10-22 15:50] VITALS: BP 158/74; PULSE 112; RESP 18; TEMP 36.6; O2SAT 98; BMI 26.5
--- OUTSIDE RECORDS SUMMARY | 2025-10-22 19:42 | XMS_ITS | Data Portability ---
Author Organization [place] - .[facility], [facility] Address [address] [place] [address] Assessment No assessment recorded. Plan of Treatment Reminders Order Date Submit Date Provider Last Modified By Organization Details Last Modified Time Details Appointments None recorded. Lab None recorded. Referral None recorded. Procedures None recorded. Surgeries None recorded. Imaging XR, finger(s), 2 or more view - eval for possible fx...PE: tenderness to the right 3rd finger with tenderness and swelling... VC...WET READ. 2021 022 [email or web address] [facility], [address] , [place], [address], 11:02:10 XR, hand, 3 or more view - eval for possible fx...PE: tenderness to the right 3rd finger with tenderness and swelling... VC...WET READ. 2021 022 [facility], [address] , [place], [address], 11:02:10 Medication Orders None recorded. Patient TargetsNo targets recorded. Patient Instructions Encounter Date Encounter Id Patient Instructions Last Modified By Organization Details Last Modified Time 08/23/2022 [id number] A healthy lifestyle: care instructions [email or web address] Not available 08/24/2022 11:02:10 Reason for Referral None Reported. Results Created Date Observation Date Name Description Value Unit Range Abnormal Flag Note LastModifiedBy Organization Detail LastModifiedTime 08/23/2008/23/2022 XR, hand, 3 or more view No observ ation record ed. [email or web address] [facility] [address] [facility], [place], [address], 08/24/2022 08:15:59 Result Notes None recorded. Problems Name Problem SNOMED Code Status Onset Date Resolution Date Notes Provider Name and Address Organization Details Recorded Time Migraine 55601332 Active 022 DANNY Terrell - .[facility] 08/23/2022 14:46:09 Problem Notes None recorded. Procedures Surgical History Date Name Laterality Status Provider Name and Address Organization Details Recorded Time 2 . Ortho - RIGHT Upper Extremity completed Diogo DELGADO - .[facility] 08/23/2022 16:22:54 Imaging Results None recorded. Procedure Notes None recorded. Medical Equipment None Reported. Allergies Allergen ID Allergen Name Allergen Category Reaction Reaction Severity Criticality Documentation Date Start Date Code Code System Note Provider Name and Address Organization Details Recorded Time 1655164 Product containin g penicilli n (product) medicatio n Not available Not available Not available 08/23/2022 [id number] SNOMED DANNY Terrell - .[facility] 14:46:04 Medications Name Sig Start Date Stop Date Status Note LastModified by Organization Details LastModified Time active Not Available Not Avai lable Not Available Vitals Date Recorded Body height Body mass index (BMI) Body weight Body temperature Heart rate Respiratory rate Oxygen saturation Systolic And Diastolic Provider Name and Address Organization Details Last Updated DateTime 157.48 cm 35.7 kg/m2 91299.5 1 g 98.6 [degF] 83 /min 16 /min 98 % 108/72 mm[Hg] Diogo DELGADO - .[facility] 14:48:41 Social History Question Answer Notes LastModified by Organizat ion Details LastModified Time Tobacco Smoking Status Never Smoker DANNY Terrell - .[facility] 08/23/2022 14:46:54 RISK LEVEL - Segmentation Level 1 - Healthy [email or web address] Information not available 10/02/2022 What Was The Date Of Your Most Recent Tobacco Screening? 08/23/2022 [email or web address] Information not available 08/23/2022 Sex: Unknown Functional Status None recorded. Mental Status None recorded. Family History Relationship Description Onset Age of this Age Resolved Age Notes LastModified by Organization Details LastModified Time Father Diabetes mellitus [email or web address] Not available 2021 14:46:37 Father Hypertensive disorder [email or web address] Not available 2021 14:46:46 Mother Diabetes mellitus [email or web address] Not available 2021 14:46:37 Mother Hypertensive disorder Not available 2021 14:46:46 Medical History No medical history recorded. Gynecological HistoryNo gynecological history recorded. Obstetrics History GPAL:G 0 P 0 0 0 0 Past Encounters Encounter ID Performer Location Encounter Start Date Encounter Closed Date Diagnosis/Indication Diagnosis SNOMED-CT Code Diagnosis ICD10 Code Diagnosis IMO Codes Diagnosis Note [id number] CHAYA KRAUS_ [facility] [address] [id number] 08/23/2022 14:25:03 08/23/2022 15:52:54 Injury of finger 04329109 S69.91XA Fracture o f middle phalanx of finger 375852961 S62.620A Health Concerns Section Related Observation LastModified by Organization Detai ls LastModified Time None Recorded Concern Status LastModified by Organization Details LastModified Time None Recorded Advance Directives Directive None Recorded Payers Insurance Date Sequence Insurance Name Policy Number Policy Le Covered Member ID Le Member ID Guarantor Name 08/23/2022 1 [facility] [id number] Stephen Mujica [id number] Siria Morrison Notes Date Note Type [...] painOf note, [facility] and denies dysuria, abdominal pain, vaginal bleeding, back painDenies skin wound, nail involvement wrist pain; Pt is R hand dominant Flori walker, [place] - .[facility] 08/23/2022 17:41:36 OBGyn Episode No OBEpisode recorded.
--- OUTSIDE RECORDS SUMMARY | 2025-10-22 19:42 | XMS_ITS | Data Portability ---
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 prioritize protein 2. maintain fluid intake 3. adhere to the eating behaviors 4. incorporate physical activity as tolerated Not available 06/22/2024 09:49:18 Patient Instructions Encounter Date Encounter Id Patient Instructions Last Modified By Organization Details Last Modified Time 06/22/2024 [id number] Recommend: Bariatric diet and vitamin supplements Physical exercise to reach goal of 10K steps/day Dietitian follow-up, support group and bariatric surgery follow-up. [email or web address] Not available 06/22/2024 07:57:08 11/29/2024 [id number] Discussed protein goals and encouraged consuming at [...] /uL 3.4-10 .8 normal Not Available [facility] ([facility]) [address] [place], [address], 04/16/2025 09:05:19 04/11/20 25 2025 CBC WITH DIFFE RENTI AL/PL ATELE T RBC 3.94 x10e6 /uL 3.77-5 .28 normal Not Available [facility] ([facility]) [address] [facility], [place], [address], 04/16/2025 09:05:19 04/11/20 25 2025 CBC WITH DIFFE RENTI AL/PL ATELE T hemoglobin 12.0 g/dL 11.1-1 5.9 normal Not Available [facility] ([facility]) [address] [place], [address], 04/16/2025 09:05:19 04/11/2004/11/2025 CBC WITH DIFFE RENTI AL/PL ATELE T hematocrit 37.0 % 34.0-4 6.6 normal Not Available [facility] ([facility]) [address] [place], [address], 04/16/2025 09:05:19 04/11/2004/11/2025 CBC WITH DIFFE RENTI AL/PL ATELE T MCV 94 fL 79-97 normal Not Available [facility] ([facility]) [address] [place], [address], 04/16/2025 09:05:19 04/11/2004/11/2025 CBC WITH DIFFE RENTI AL/PL ATELE T MCH 30.5 pg 26.6-3 3.0 normal Not Available [facility] ([facility]) [address] [place], [address], 04/16/2025 09:05:19 04/11/2004/11/2025 CBC WITH DIFFE RENTI AL/PL ATELE T MCHC 32.4 g/dL 31.5-3 5.7 normal Not Available [facility] ([facility]) [address] [place], [address], 04/16/2025 09:05:19 04/11/2004/11/2025 CBC WITH DIFFE RENTI AL/PL ATELE T RDW 12.5 % 11.7-1 5.4 Not Available [facility] ([facility]) [address] [place], [address], 04/16/2025 09:05:19 04/11/2004/11/2025 CBC WITH DIFFE RENTI AL/PL ATELE T platelets 206 x10e3 /uL 150-45 0 normal Not Available [facility] ([facility]) [address] [place], [address], 04/16/2025 09:05:19 04/11/20 25 2025 CBC WITH DIFFE RENTI AL/PL ATELE T neutrophils 50 % not estab. normal Not Available [facility] ([facility]) [address] [place], [address], 04/16/2025 09:05:19 04/11/20 25 2025 CBC WITH DIFFE RENTI AL/PL ATELE T lymphs 40 % not estab. normal Not Available [facility] ([facility]) [address] [place], [address], 04/16/2025 09:05:19 04/11/20 25 2025 CBC WITH DIFFE RENTI AL/PL ATELE T monocytes 6 % not estab. normal Not Available [facility] ([facility]) [address] [place], [address], 04/16/2025 09:05:19 04/11/20 25 2025 CBC WITH DIFFE RENTI AL/PL ATELE T eos 3 % not estab. normal Not Available [facility] ([facility]) [address] [place], [address], 04/16/2025 09:05:19 04/11/20 25 2025 CBC WITH DIFFE RENTI AL/PL ATELE T basos 1 % not estab. normal Not Available [facility] ([facility]) [address] [place], [address], 04/16/2025 09:05:19 04/11/20 25 2025 CBC WITH DIFFE RENTI AL/PL ATELE T immature cells CIAIO COUNTER MOLDER Not Available [facility] ([facility]) [address] [place], [address], 04/16/2025 09:05:19 04/11/20 25 2025 CBC WITH DIFFE RENTI AL/PL ATELE T neutrophils (absolute) 2.9 x10e3 /uL 1.4-7. 0 normal Not Available [facility] ([facility]) [address] [place], [address], 04/16/2025 09:05:19 04/11/20 25 2025 CBC WITH DIFFE RENTI AL/PL ATELE T lymphs (absolute) 2.2 x10e3 /uL 0.7-3. 1 normal Not Available [facility] ([facility]) [address] [place], [address], 04/16/2025 09:05:19 04/11/20 25 2025 CBC WITH DIFFE RENTI AL/PL ATELE T monocytes(ab solute) 0.3 x10e3 /uL 0.1-0. 9 normal Not Available [facility] ([facility]) [address] [place], [address], 04/16/2025 09:05:19 04/11/20 25 2025 CBC WITH DIFFE RENTI AL/PL ATELE T eos (absolute) 0.2 x10e3 /uL 0.0-0. 4 normal Not Available [facility] ([facility]) [address] [place], [address], 04/16/2025 09:05:19 04/11/20 25 2025 CBC WITH DIFFE RENTI AL/PL ATELE T baso (absolute) 0.1 x10e3 /uL 0.0-0. 2 normal Not Available [facility] ([facility]) [address] [place], [address], 04/16/2025 09:05:19 04/11/20 25 2025 CBC WITH DIFFE RENTI AL/PL ATELE T immature granulocytes 0 % not estab. Not Available [facility] ([facility]) [address] [facility], [place], [address], 04/16/2025 09:05:19 04/11/20 25 2025 CBC WITH DIFFE RENTI AL/PL ATELE T immature grans (abs) 0.0 x10e3 /uL 0.0-0. 1 Not Available [facility] ([facility]) [address] [facility], [place], [address], 04/16/2025 09:05:19 04/11/20 25 2025 CBC WITH DIFFE RENTI AL/PL ATELE T NRBC CIAIO COUNTER MOLDER Not Available [facility] ([facility]) [address] [facility], [place], [address], 04/16/2025 09:05:19 04/11/20 25 2025 CBC WITH DIFFE RENTI AL/PL ATELE T hematology comments: CIAIO COUNTER MOLDER Not Available [facility] ([facility]) [address] [facility], [place], [address], 04/16/2025 09:05:19 04/11/20 25 04/12/2025 COMP. METAB OLIC PANEL (14) glucose 79 mg/dL 70-99 normal Not Available [facility] ([facility]) [address] [place], [address], 04/16/2025 09:05:20 04/11/20 25 04/12/2025 COMP. METAB OLIC PANEL (14) BUN 12 mg/dL 6-20 normal Not Available [facility] ([facility]) [address] [place], [address], 04/16/2025 09:05:20 04/11/20 25 04/12/2025 COMP. METAB OLIC PANEL (14) creatinine 0.61 mg/dL 0.57-1 .00 normal Not Available [facility] ([facility]) [address] [place], [address], 04/16/2025 09:05:20 04/11/20 25 04/12/2025 COMP. METAB OLIC PANEL (14) eGFR 126 mL/mi n/1.7 3 >59 normal Not Available [facility] ([facility]) [address] [facility] [place], [address], 04/16/2025 09:05:20 04/11/20 25 04/12/2025 COMP. METAB OLIC PANEL (14) BUN/creatini ne ratio 20 9-23 normal Not Available [facility] ([facility]) [address] [facility] [place], [address], 04/16/2025 09:05:20 04/11/20 25 04/12/2025 COMP. METAB OLIC PANEL (14) sodium 143 mmol/ L 134-14 4 normal Not Available [facility] ([facility]) [address] [facility] [place], [address], 04/16/2025 09:05:20 04/11/20 25 04/12/2025 COMP. METAB OLIC PANEL (14) potassium 4.2 mmol/ L 3.5-5. 2 normal Not Available [facility] ([facility]) [address] [facility] [place], [address], 04/16/2025 09:05:20 04/11/20 25 04/12/2025 COMP. METAB OLIC PANEL (14) chloride 107 mmol/ L 96-106 above high normal Not Available [facility] ([facility]) [address] [facility] [place], [address], 04/16/2025 09:05:20 04/11/20 25 04/12/2025 COMP. METAB OLIC PANEL (14) carbon dioxide, total 18 mmol/ L 20-29 below low normal Not Available [facility] ([facility]) [address] [facility] [place], [address], 04/16/2025 09:05:20 04/11/20 25 04/12/2025 COMP. METAB OLIC PANEL (14) calcium 9.3 mg/dL 8.7-10 .2 normal Not Available [facility] ([facility]) [address] [facility] [place], [address], 04/16/2025 09:05:20 04/11/20 25 04/12/2025 COMP. METAB OLIC PANEL (14) protein, total 6.6 g/dL 6.0-8. 5 normal Not Available [facility] ([facility]) [address] [facility] [place], [address], 04/16/2025 09:05:20 04/11/20 25 04/12/2025 COMP. METAB OLIC PANEL (14) albumin 4.3 g/dL 4.0-5. 0 normal Not Available [facility] ([facility]) [address] [facility] [place], [address], 04/16/2025 09:05:20 04/11/20 25 04/12/2025 COMP. METAB OLIC PANEL (14) globulin, total 2.3 g/dL 1.5-4. 5 Not Available [facility] ([facility]) [address] [facility] [place], [address], 04/16/2025 09:05:20 04/11/20 25 04/12/2025 COMP. METAB OLIC PANEL (14) bilirubin, total 0.3 mg/dL 0.0-1. 2 normal Not Available [facility] ([facility]) [address] [facility] [place], [address], 04/16/2025 09:05:20 04/11/20 25 04/12/2025 COMP. METAB OLIC PANEL (14) alkaline phosphatase 64 IU/L 44-121 normal Not Available [facility] ([facility]) [address] [facility] [place], [address], 04/16/2025 09:05:20 04/11/20 25 04/12/2025 COMP. METAB OLIC PANEL (14) AST (SGOT) 13 IU/L 0-40 normal Not Available [facility] ([facility]) [address] [facility] [place], [address], 04/16/2025 09:05:20 2120 25 04/12/2025 COMP. METAB OLIC PANEL (14) ALT (SGPT) 13 IU/L 0-32 normal Not Available [facility] ([facility]) [address] [facility] [place], [address], 04/16/2025 09:05:20 04/11/20 25 04/12/2025 LIPID PANEL cholesterol, total 141 mg/dL 100-19 9 normal Not Available [facility] ([facility]) [address] [place], [address], 04/16/2025 09:05:21 04/11/20 25 04/12/2025 LIPID PANEL triglyceride s 56 mg/dL 0-149 normal Not Available [facility] ([facility]) [address] [place], [address], 04/16/2025 09:05:21 04/11/20 25 04/12/2025 LIPID PANEL HDL cholesterol 43 mg/dL >39 normal Not Available [facility] ([facility]) [address] [place], [address], 04/16/2025 09:05:21 04/11/20 25 04/12/2025 LIPID PANEL VLDL cholesterol nithin 12 mg/dL 5-40 Not Available [facility] ([facility]) [address] [place], [address], 04/16/2025 09:05:21 04/11/20 25 04/12/2025 LIPID PANEL LDL chol calc ([facility]) 86 mg/dL 0-99 Not Available [facility] ([facility]) [address] [place], [address], 04/16/2025 09:05:21 04/11/20 25 04/12/2025 LIPID PANEL LDL calc comment: CIAIO COUNTER MOLDER Not Available [facility] ([facility]) [address] [facility] [place], [address], 04/16/2025 09:05:21 04/11/20 25 04/12/2025 IRON AND TIBC iron bind.cap.(TI BC) 292 ug/dL 250-45 0 normal Not Available [facility] ([facility]) [address] [facility] [place], [address], 04/16/2025 09:05:21 04/11/20 25 04/12/2025 IRON AND TIBC UIBC 224 ug/dL 131-42 5 normal Not Available [facility] ([facility]) [address] [place], [address], 04/16/2025 09:05:21 04/11/20 25 04/12/2025 IRON AND TIBC iron 68 ug/dL 27-159 normal Not Available [facility] ([facility]) [address] [place], [address], 04/16/2025 09:05:21 04/11/20 25 04/12/2025 IRON AND TIBC iron saturation 23 % 15-55 normal Not Available [facility] ([facility]) [address] [place], [address], 04/16/2025 09:05:21 04/11/20 25 04/12/2025 VITAM IN B12 AND FOLAT E vitamin B12 484 pg/mL 232-12 45 normal Not Available [facility] ([facility]) [address] [place], [address], 04/16/2025 09:05:22 04/11/20 25 04/12/2025 VITAM IN B12 AND FOLAT E folate (folic acid), serum 5.4 NG/mL >3.0 normal A serum folat e wm ntrat ion of less than 3.1 ng/mL is consi dered to repre sent clini nithin defic iency . Not Available [facility] ([facility]) [address] [facility], [place], [address], 04/16/2025 09:05:22 04/11/20 25 2025 HEMOG LOBIN A1C hemoglobin A1C 5.1 % 4.8-5. 6 normal Predi abete s: 5.7 - 6.4 Diabe lobito: >6.4 Glyce keo contr ol for adult s with diabe lobito: <7.0 Not Available [facility] ([facility]) [address] [facility], [place], [address], 04/16/2025 09:05:23 04/11/20 25 04/12/2025 TSH TSH 2.770 uIU/m L 0.450- 4.500 normal Not Available [facility] ([facility]) [address] [facility], [place], [address], 04/16/2025 09:05:23 04/11/2004/12/2025 VITAM IN D, 25-HY [...] Nicholas ludwig [place]: The [facility] . 2. Kenton guzman MF, Luisa ey [place], Stewart off-F errar i LAZARO, et al. Evalu ation , treat ment, and preve ntion of vitam in D defic iency : an Endoc rine Socie ty clini nithin pract ice guide line. EM. 2010; 96(7) :1911 -30. Not Available [facility] ([facility]) [address] [place], [address], 04/16/2025 09:05:24 04/11/20 25 04/15/2025 VITAM IN B1 (THIA MINE) , BLOOD vit. B1, whole blood 104.4 nmol/ L 66.5-2 00.0 Not Available [facility] ([facility]) [address] [place], [address], 04/16/2025 09:05:24 04/11/20 25 04/12/2025 HOMOC YST(E )INE homocyst(E)i ne 8.9 umol/ L 0.0-14 .5 Not Available [facility] ([facility]) [address] [place], [address], 04/16/2025 09:05:25 04/11/20 25 04/12/2025 INSUL IN insulin 11.5 uIU/m L 2.6-24 .9 normal Not Available [facility] ([facility]) [address] [place], [address], 04/16/2025 09:05:25 04/11/20 25 04/12/2025 MASSIMO TIN ferritin 15 NG/mL 15-150 normal Not Available [facility] ([facility]) [address] [place], [address], 04/16/2025 09:05:26 04/11/20 25 04/13/2025 PTH, INTAC T PTH, intact 31 pg/mL 15-65 normal Not Available [facility] ([facility]) [address] [place], [address], 04/16/2025 09:05:27 04/09/20 25 04/09/2025 XR, upper gastr ointe vipul l serie s No observ ation record ed. [email or web address] Not Available 2024 13:08:11 Result Notes None recorded. Problems Name Problem SNOMED Code Status Onset Date Resolution Date Notes Provider Name and Address Organization Details Recorded Time Obesity 990453809 Active María Gant, MSN, ANP-BC [address], Suite [facility], [place], [place], [address] [place] [address] , [facility] 3 07:55:47 Asthma 897042311 Active María Gant, MSN, ANP-BC [address] [facility], [address], [place], [place], [address] [place] [address] , [facility] 3 07:56:01 History of sleeve gastrectom y 704488681153 107 Active JAQUELINE FIELDS, CIAIO COUNTER MOLDER [address] [facility], [address], [address] [place] [address] , [facility] 5 14:50:07 Supraventr icular tachycardi a 2859634 Active JAQUELINE FIELDS, CIAIO COUNTER MOLDER [address] [place] [address], Suite [facility], [place], [place], [address] [place] [address] , [facility] 5 14:54:39 Morbid obesity 489183208 Active 2023 Sepideh Escamilla [facility] 4 08:11:13 Dietary management surveillan ce Active 2023 Rosario Rich, MS/RD [address] [facility], [address], [address] [place] [address] , [facility] 4 23:18:05 Exercises education, guidance, and counseling Active 2023 Rosario Rich, MS/RD [address] [employer] [facility], [address] [place] [address], [address] [place] [address] , [facility] 4 23:18:14 Problem Notes None recorded. Procedures Surgical History Date Name Laterality Status Provider Name and Address Organization Details Recorded Time 04/09/20 25 UGI GASTRIC SLEEVE completed Maraí Gant, MSN, ANP- [address] [facility], [address], [place], [address], [facility] 04/09/2025 13:24:54 03/30/20 24 UGI GASTRIC SLEEVE completed Valente Marroquin MD [address] [facility], [address], [place], [address], [facility] 03/30/2024 09:09:20 03/22/20 24 LAPAROSCOPY, SURGICAL, GASTRIC RESTRICTIVE PROCEDURE; LONGITUDINAL GASTRECTOMY (SURG) completed JOZEF RODARTE [address] [facility], [address], [place], [address], [facility] 03/27/2024 14:34:47 08/23/20 23 UGI PREOP completed LEISA Mcleod, [address], [address] [facility], [place], [address], [facility] 08/24/2023 08:00:40 04/27/20 22 completed LEISA Mcleod, [address], [address] [facility], [place], [address], [facility] 08/23/2023 15:01:33 11/22/18 91 completed LEISA Mcleod, [address], [address] [facility], [place], [address], [facility] 08/23/2023 15:01:33 Imaging Results None recorded. Procedure Notes None recorded. Medical Equipment None Reported. Allergies Allergen ID Allergen Name Allergen Category Reaction Reaction Severity Criticality Documentation Date Start Date Code Code System Note Provider Name and Address Organization Details Recorded Time 25551 Product containin g penicilli n (product) medicatio n anaphylax is rash Not available Not available Not available 08/23/2023 76248 8001 SNOMED LEISA Mcleod, [address], [address], [place], [address], [facility] 15:01:17 05568 amoxicill in medicatio n anaphylax is rash Not available Not available Not available 08/23/2023 723 RxNorm LEISA Mcleod, [facility] [address], [address], [place], [address], [facility] 3 15:01:17 47384 latex environme nt,medica tion Not available Not available Not available 03/13/2024 88214 91 RxNorm María Gant, MSN, [facility] [address] [facility], [address], [place], [address], [facility] 4 14:35:54 18425 tree nut food Not available Not available Not available 03/13/2024 María Gant, MSN, [address], [address], [place], [address], [facility] 4 14:36:00 Medications Name Sig Start Date [...] Updated DateTime 11/29/2024 157.48 cm 31.9 kg/m2 42147.82 g Renetta Vanessa, MS/RD [address] [facility], [address], [address] [place] [address] 11/29/2024 13:48:46 Date Recorded Body height Body mass index (BMI) Body weight Heart rate Systolic And Diastolic Provider Name and Address Organization Details Last Updated DateTime 11/29/2024 157.48 cm 31.9 kg/m2 12536.82 g 81 /min 106/66 mm[Hg] Sepideh Escamilla [facility] 13:35:21 Date Recorded Systolic And Diastolic Provider Name and Address Organization Details Last Updated DateTime 04/09/2025 108/78 mm[Hg] María Gant MSN, [facility], [address] [place] [address] 04/09/2025 12:20:35 Date Recorded Body height Body mass index (BMI) Body weight Heart rate Provider Name and Address Organization Details Last Updated DateTime 04/09/2025 157.48 cm 25.8 kg/m2 07962.27 g 79 /min Sepideh Escamilla [facility] 04/09/2025 11:54:53 Date Recorded Body height Body mass index (BMI) Body weight Provider Name and Address Organization Details Last Updated DateTime 06/21/2024 157.48 cm 31.7 kg/m2 05886.63 g Rosario Rich, MS/RD [address] [facility], [address], [address] [place] [address] Services 06/21/2024 23:18:27 Date Recorded Body height Body mass index (BMI) Body weight Heart rate Systolic And Diastolic Provider Name and Address Organization Details Last Updated DateTime 06/22/2024 157.48 cm 31.9 kg/m2 64108.82 g 85 /min 114/75 mm[Hg] [facility] 07:58:25 Social History Question Answer Notes LastModified by Organizat ion Details LastModified Time Tobacco Smoking Status Former Smoker María Gant, MSN, ANP- [address] [facility], [address], [place], [address], [facility] 08/23/2023 15:01:51 Which Illicit Or Recreational Drugs Have You Used? No Information not available 08/23/2023 What Is The Highest Grade Or Level Of School You Have Completed Or The Highest Degree You Have Received? [id number] Information not available 08/23/2023 Who Is Your Employer? [employer] Information not available 08/23/2023 What Is Your Relationship Status? Single Information not available 08/23/2023 How Much Tobacco Do You Smoke? 1 PPW Information not available 08/23/2023 Sex: Female Functional Status Question Answer Note LastModified by Organizat ion Details LastModified Time What is your level of alcohol consumption? 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 [id number] Information not available 08/23/2023 Family History Relationship [...] ICD10 Code Diagnosis IMO Codes Diagnosis Note [id number] María Gant, MSN, ANP-BC [facility] [address] [address] 08/23/2023 14:57:05 08/24/2023 08:06:48 Morbid obesity 301316433 E66.01 R53.83 Morbid Obesity with a BMI of 39.9 Bariatric surgery. The patient has received in office education on the sleeve gastrectom y and Trinh en Y procedure. As part of the pre-surgic al pathway the patient will complete the following: - An online seminar- Attend two support groups- Nutritiona l evaluation with a Technical Support Engineer- Upper GI- Preoperati ve comprehens abdi lab [...] informatio n and consult taylor sYolanda Asthma [id number] J45.90 9 Pulmonary clearance. Compliance with inhalers recommende dYolanda [id number] GALINDO STEELE MS, RD TSB_[facility] [address] [place] [address] [place] [address] 3 08/30/2023 13:58:07 08/31/2023 12:12:50 Exercises education, guidance, and counseling [id number] Z71.89 Dietary ma nagement surveillance 816324097 Z71.3 [id number] MD SHARIF Gustafson[facility] [address] [place] [address] [place] [address] 3 09/21/2023 15:18:38 09/21/2023 17:19:52 Morbid obesity 300360975 E66.01 Dietary ma nagement surveillance 136218206 Z71.3 Exercises education, guidance, and counseling [id number] Z71.82 [id number] GALINDO STEELE MS, RD [facility] [address] [place] [address] [place] [address] 3 10/05/2023 10:28:35 10/06/2023 12:15:50 Exercises education, guidance, and counseling 485763780 Z71.89 Dietary ma nagement surveillance 835900559 Z71.3 [id number] GALINDO STEELE MS, RD TSB_[facility] [address] [place], [place] [address] 3 11/02/2023 15:23:42 11/03/2023 12:47:02 Exercises education, guidance, and counseling 075625231 Z71.89 Dietary ma nagement surveillance 037701909 Z71.3 [id number] GALINDO STEELE MS, RD [facility] [address] [place], [place] [address] 3 11/30/2023 15:33:19 12/01/2023 12:17:39 Exercises education, guidance, and counseling 391714068 Z71.89 Dietary ma nagement surveillance 900861279 Z71.3 [id number] MD FLORENTIN Gustafson [facility] [address] [facility] [place] [address] 3 01/20/2024 14:54:11 01/20/2024 15:27:06 Morbid obesity 722449890 E66.01 Dietary ma nagement surveillance 486528384 Z71.3 Exercises education, guidance, and counseling 849740254 Z71.82 [id number] GALINDO STEELE MS, RD B_[facility] [address] [facility] [place] [address] 3 02/01/2024 10:30:02 02/02/2024 13:53:55 Exercises education, guidance, and counseling 387044812 Z71.89 Dietary ma nagement surveillance 803949005 Z71.3 [id number] GALINDO STEELE MS, RD B_[facility] [address] [facility] [place] [address] 3 02/29/2024 15:35:02 03/01/2024 12:48:26 Exercises education, guidance, and counseling 399681077 Z71.89 Dietary ma nagement surveillance 020660253 Z71.3 [id number] MD FLORENTIN Gustafson [facility] [address] [facility] [place] [address] 3 03/09/2024 08:05:52 03/09/2024 08:55:35 Morbid obesity 954860591 E66.01 Dietary ma nagement surveillance 647763638 Z71.3 Pre-surger y evaluation [id number] Z01.818 [id number] María Gant, MSN, ANP-BC [facility] [address] [facility] [place] [address] 03/13/2024 13:51:22 03/13/2024 14:58:54 Asthma [id number] J45.909 Pt to use Breo before arrival to hospital. Obesity 894997953 E66.9 Morbid obesity, BMI 38.8 and co-morbidi ties. Patient qualifies for bariatric surgery by NIH criteria. Patient is scheduled for Laparoscop ic sleeve gastrectom y at [facility] on 03/22/24All pre and post operative instructio ns reviewed with patient including dietary, activity and medication management . Good understand ing noted.PST appt confirmed for 03/17 at 7am. [id number] GALINDO STEELE MS, RD B_[facility] [address] [place] [address] 03/28/2024 15:33:55 03/29/2024 14:15:10 Exercises education, guidance, and counseling [id number] Z71.89 Dietary ma nagement surveillance [id number] Z71.3 [id number] MD SHARIF Gustafson_ALEJA [facility] [address] [place] [address] 3 03/30/2024 08:01:48 03/30/2024 08:52:27 Bariatric operative procedure [id number] Z90.3 Morbid obesity 522936143 E66.01 Dietary ma nagement surveillance 952400231 Z71.3 [id number] Renetta Vanessa MS/RD B_[facility] [address] [place] [address] 04/03/2024 11:19:03 04/04/2024 11:02:38 Exercises education, guidance, and counseling [id number] Z71.89 Dietary ma nagement surveillance 109998465 Z71.3 [id number] GALINDO STEELE MS, RD B_[facility] [address] [place] [address] 04/18/2024 10:01:06 04/19/2024 11:51:06 Exercises education, guidance, and counseling [id number] Z71.89 Dietary ma nagement surveillance 831911792 Z71.3 [id number] GALINDO STEELE MS, RD B_[facility] [address] [place] [address] 05/10/2024 08:49:10 05/11/2024 11:48:12 Exercises education, guidance, and counseling 450090255 Z71.89 Dietary ma nagement surveillance [id number] Z71.3 [id number] MD FLORENTIN Gustafson [facility] [address] [facility] [place] [address] 05/11/2024 14:32:23 05/11/2024 15:03:53 Obesity 154098038 E66.9 Dietary ma nagement surveillance 092351204 Z71.3 Exercises education, guidance, and counseling 377811060 Z71.82 History of sleeve gastrectomy [id number] 23194 Z90.3 [id number] Rosario Rich, MS/RD R[facility] [address] [facility] [address] [place] [address] 3 06/21/2024 16:30:59 06/21/2024 23:17:36 Dietary management surveillance 409181952 Z71.3 Exercises education, guidance, and counseling [id number] Z71.82 [id number] MD FLORENTIN Gustafson [facility] [address] [facility] [place] [address] 06/22/2024 07:50:09 06/22/2024 08:08:59 Obesity 363734058 E66.9 Dietary ma nagement surveillance 572087172 Z71.3 Exercises education, guidance, and counseling 406803615 Z71.82 History of sleeve gastrectomy [id number] 06971 Z90.3 Morbid obesity 814519586 E66.01 [id number] HE PATEL [facility] [address] [facility] [place] [address] 11/29/2024 13:31:35 11/29/2024 14:26:52 Morbid obesity 236125546 E78.2 E55.[address] f/u completed as well today.- adherence to dietary guidelines encouraged Vitamins: MVI patchAvoid NSAID useEncoura ged support group attendance .15-30 minutes of cardio 3-5x/week as tolerated encouraged .Minimum of 64 oz of water/VLCF daily recommende d. Avoid SSBsLabs due, rx provided.R TO in 2 months for CIAIO COUNTER MOLDER/RD follow up [id number] Renetta Vanessa, MS/JAMAL LERMA [facility] [address] [facility] [place] [address] 11/29/2024 13:47:37 11/29/2024 14:52:57 Exercises education, guidance, and counseling 580113744 Z71.89 Dietary ma nagement surveillance [id number] Z71.3 [id number] María Gant, MSN, ANP-BC [facility] [address] [address] 04/09/2025 11:48:58 04/09/2025 12:27:25 Overweight 938401690 E66.3 R53.83 [id number] Reviewed diet: Phase 3 dietary guidelines and protein intake goals reviewed. See RD Vitamins- restart vitamin patch Avoid NSAID use Encouraged support group attendance . Exercise - conitnue gym workouts., Minimum of 64 oz of water/suga r free/fat free liquids daily recommende d.UGI is WNL RTO with CIAIO COUNTER MOLDER/RD Supraventr icular tachycardia [id number] I47.10 F/u with cardiology . Health Concerns Section Related Observation LastModified by Organization Detai ls LastModified Time None Recorded Concern Status LastModified by Organization Details LastModified Time None Recorded Advance Directives Directive None Recorded Payers Insurance Date Sequence Insurance Name Policy Number Policy Le Covered Member ID Le Member ID Guarantor Name 08/16/2024 2 [place] Siria Secone [id number] Siria Secone 07/13/2024 1 [facility] (O) [id number] Stephen Mujica [id number] Siria Secone 09/27/2024 1 [facility] ([facility]) [id number] Stephen Mujica [id number] Siria Secone 09/23/2025 1 [facility] OPTION (MEDICAID HMO) [id number] Siria Secone [id number] Siria Secone Notes Date Note Type Note Provider Name and Address Organization Details Recorded Time 4 text/html Post sleeve f/u diet crisis counselor/phone consult (attempted telehealth but connection was [...] more watery vegetables/fruit well, but 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 174.5lbs and BMI 31.9Tolerating oral intake. Exercising Daily , Having normal bowel movements regularly. Utilizing My Fitness Pal janice. Valente Marroquin MD [address], [address], [place], [address], [facility] 06/22/2024 08:17:42 5 text/html Presents today for CIAIO COUNTER MOLDER follow up.s/p Sleeve Gastrectomy 03/2024.Denies any issues/concerns re: sleeve.Reports more frequent episodes of SVT over the last 3 months, attributes to increased stress (family court/custody) and is scheduled for Cardiology f/u today. + history of SVT preop.Drinking 64+ oz water/VLCF dailyProtein intake appears adequateVitamins: MVI patchDenies exercise regimen, physically active FT job. JAQUELINE FIELDS, HE [address], [address], [place], [address], [facility] 11/29/2024 14:55:45 5 text/html Post (sleeve-03/22/24) f/u diet crisis counselor- Pt lost 0 lbs- states feels well, hunger low; denies n/v/sticking/abdominal pain or heartburn. Denies pain while eating. Taking MV Patch. Goal weight: 165 lbs. 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 María Gant, MSN, ANP- [address], [address], [place], [address], [facility] 04/09/2025 13:25:49 OBGyn Episode No OBEpisode recorded.
--- OUTSIDE RECORDS SUMMARY | 2025-10-22 19:42 | XMS_ITS | Data Portability ---
Author Organization [facility], G_Endocrinology_73_[facility] Address [address] [place] [phone] Assessment No assessment recorded. Plan of Treatment Reminders Order Date Submit Date Provider Last Modified By Organization Details Last Modified Time Details Appointments None recorded. Lab CBC w/ diff 2022 023 [facility], [address] [place] [address], [facility] [address], [place], [address], 14:52:50 CMP, serum or plasma 2022 023 [facility], [address] [place] [address], [facility] [address], [place], [address], 08:19:30 hepatitis (A+B+C) panel, serum 2022 023 [facility], [address] [place] [address], [address], [place], [address], 08:19:29 tb (M tuberculosi s), ifn-gamma kobi, blood 2022 023 [facility], [address] [place] [address], [address], [place], [address], 14:52:52 Referral None recorded. Procedures None recorded. Surgeries None recorded. Imaging None recorded. Medication Orders Skyrizi 150 mg/mL subcutaneou s pen injector 2022 023 TELMA [facility], [address], [address], [place], [place], [id number], 3 08:19:23 Stelara 90 mg/mL subcutaneou s syringe 2021 022 TELMA [facility], [address], [address], [place], [place], [id number], 09:07:19 Patient TargetsNo targets recorded. Patient Instructions Encounter Date Encounter Id Patient Instructions Last Modified By Organization Details Last Modified Time 01/11/2023 [id number] I have discussed or re-discussed the following [...] x10e3 /uL 3.4-10 .8 normal Not Available [facility] [address] [facility] [address], [place], [address], 01/27/2023 14:52:50 01/27/2001/26/2023 COMPL ETE BLOOD COUNT W/ DIFF hematocrit 38.7 % 34.0-4 6.6 normal Not Available [facility] [address] [facility] [address], [place], [address], 01/27/2023 14:52:50 01/27/20 23 01/26/2023 COMPL ETE BLOOD COUNT W/ DIFF platelets 221 x10e3 /uL 150-45 0 normal Not Available [facility] [address] [place], [place] [address]r 3, [place], [address], 01/27/2023 14:52:50 01/27/20 23 01/26/2023 COMPL ETE BLOOD COUNT W/ DIFF neutrophils (absolute) 4.1 x10e3 /uL 1.4-7. 0 normal Not Available [facility] [address] [place], [place] [address]r 3, [place], [address], 01/27/2023 14:52:50 01/27/20 23 01/26/2023 COMPL ETE BLOOD COUNT W/ DIFF lymphs (absolute) 1.6 x10e3 /uL 0.7-3. 1 normal Not Available [facility] [address] [place], [place] [address]r 3, [place], [address], 01/27/2023 14:52:50 01/27/20 23 01/26/2023 COMPL ETE BLOOD COUNT W/ DIFF monocytes(ab solute) 0.3 x10e3 /uL 0.1-0. 9 normal Not Available [facility] [address] [place], [place] [address]r 3, [place], [address], 01/27/2023 14:52:50 01/27/20 23 01/26/2023 COMPL ETE BLOOD COUNT W/ DIFF eos (absolute) 0.2 x10e3 /uL 0.0-0. 4 normal Not Available [facility] [address] [place], [place] [address]r 3, [place], [address], 01/27/2023 14:52:50 01/27/20 23 01/26/2023 COMPL ETE BLOOD COUNT W/ DIFF baso (absolute) 0.1 x10e3 /uL 0.0-0. 2 normal Not Available [facility] [address] [place], [place] [address] [address], [place], [address], 01/27/2023 14:52:50 01/27/20 23 01/26/2023 COMPL ETE BLOOD COUNT W/ DIFF neutrophils 67 % not estab. normal Not Available [facility] [address], [place], [address], 01/27/2023 14:52:50 01/27/20 23 01/26/2023 COMPL ETE BLOOD COUNT W/ DIFF lymphs 25 % not estab. normal Not Available [facility] [address], [place], [address], 01/27/2023 14:52:50 01/27/20 23 01/26/2023 COMPL ETE BLOOD COUNT W/ DIFF monocytes 5 % not estab. normal Not Available [facility] [address], [place], [address], 01/27/2023 14:52:50 01/27/20 23 01/26/2023 COMPL ETE BLOOD COUNT W/ DIFF eos 2 % not estab. normal Not Available [facility] [address], [place], [address], 01/27/2023 14:52:50 01/27/20 23 01/26/2023 COMPL ETE BLOOD COUNT W/ DIFF basos 1 % not estab. normal Not Available [facility] [address], [place], [address], 01/27/2023 14:52:50 01/27/20 23 01/26/2023 COMPL ETE BLOOD COUNT W/ DIFF RBC 4.76 x10e6 /uL 3.77-5 .28 normal Not Available [facility] [address], [place], [address], 01/27/2023 14:52:50 01/27/20 23 01/26/2023 COMPL ETE BLOOD COUNT W/ DIFF MCV 81 fL 79-97 normal Not Available [facility] [address], [place], [address], 01/27/2023 14:52:50 01/27/20 23 01/26/2023 COMPL ETE BLOOD COUNT W/ DIFF MCH 26.7 pg 26.6-3 3.0 normal Not Available [facility] [address], [place], [address], 01/27/2023 14:52:50 01/27/20 23 01/26/2023 COMPL ETE BLOOD COUNT W/ DIFF MCHC 32.8 g/dL 31.5-3 5.7 normal Not Available [facility] [address], [place], [address], 01/27/2023 14:52:50 01/27/20 23 01/26/2023 COMPL ETE BLOOD COUNT W/ DIFF RDW 16.6 % 11.7-1 5.4 high Not Available [facility] [address], [place], [address], 01/27/2023 14:52:50 01/27/20 23 01/26/2023 COMPL ETE BLOOD COUNT W/ DIFF Unknown Analyte 12.7 g/dL 11.1-1 5.9 normal Not Available [facility] [address], [place], [address], 01/27/2023 14:52:50 01/27/20 23 01/26/2023 COMPL ETE BLOOD COUNT W/ DIFF immature granulocytes 0 % not estab. normal Not Available [facility] [address], [place], [address], 01/27/2023 14:52:50 01/27/20 23 01/26/2023 COMPL ETE BLOOD COUNT W/ DIFF immature grans (abs) 0.0 x10e3 /uL 0.0-0. 1 normal Not Available [facility] [address], [place], [address], 01/27/2023 14:52:50 01/27/20 23 01/26/2023 CMET glucose 80 mg/dL 70-99 normal Not [facility] [address] [facility] [address], [place], [address], 01/27/2023 14:52:51 01/27/20 23 01/26/2023 CMET BUN 16 mg/dL 6-20 normal Not Available [facility] [address] [place], [place] [address]e [address], [place], [address], 01/27/2023 14:52:51 01/27/20 23 01/26/2023 CMET creatinine 0.71 mg/dL 0.57-1 .00 normal Not Available [facility] [address] [place], [place] [address]e [address], [place], [address], 01/27/2023 14:52:51 01/27/20 23 01/26/2023 CMET eGFR 122 mL/mi n/1.7 3 >59 normal Not Available [facility] [address] [place], [place] [address]e [address], [place], [address], 01/27/2023 14:52:51 01/27/20 23 01/26/2023 CMET BUN/creatini ne ratio 23 9-23 normal Not Available [facility] [address] [facility] [address], [place], [address], 01/27/2023 14:52:51 01/27/20 23 01/26/2023 CMET sodium 141 mmol/ L 134-14 4 normal Not Available [facility] [address] [place], [place] [address]e [address], [place], [address], 01/27/2023 14:52:51 01/27/20 23 01/26/2023 CMET potassium 5.1 mmol/ L 3.5-5. 2 normal Not Available [facility] [address] [place], [place] [address]e [address], [place], [address], 01/27/2023 14:52:51 01/27/20 23 01/26/2023 CMET chloride 104 mmol/ L 96-106 normal Not Available [facility] [address], [place], [address], 01/27/2023 14:52:51 01/27/20 23 01/26/2023 CMET carbon dioxide, total 25 mmol/ L 20-29 normal Not Available [facility] [address] [place], [place] [address]e [address], [place], [address], 01/27/2023 14:52:51 01/27/20 23 01/26/2023 CMET calcium 9.6 mg/dL 8.7-10 .2 normal Not Available [facility] [address] [place], [place] [address]r 3, [place], [address], 01/27/2023 14:52:51 01/27/20 23 01/26/2023 CMET protein, total 6.9 g/dL 6.0-8. 5 normal Not Available [facility] [address] [place], [place] [address]r 3, [place], [address], 01/27/2023 14:52:51 01/27/20 23 01/26/2023 CMET albumin 4.4 g/dL 3.9-5. 0 normal Not Available [facility] [address] [place], [place] [address]r 3, [place], [address], 01/27/2023 14:52:51 01/27/20 23 01/26/2023 CMET globulin, total 2.5 g/dL 1.5-4. 5 normal Not Available [facility] [address] [place], [place] [address]e [address], [place], [address], 01/27/2023 14:52:51 01/27/20 23 01/26/2023 CMET A/G ratio 1.8 1.2-2. 2 normal Not Available [facility] [address] [place], [place] [address] [address], [place], [address], 01/27/2023 14:52:51 01/27/20 23 01/26/2023 CMET bilirubin, total 0.4 mg/dL 0.0-1. 2 normal Not Available [facility] [address] [facility] [address], [place], [address], 01/27/2023 14:52:51 01/27/20 23 01/26/2023 CMET alkaline phosphatase 107 IU/L 44-121 normal Not Available [facility] [address], [place], [address], 01/27/2023 14:52:51 01/27/20 23 01/26/2023 CMET AST (SGOT) 16 IU/L 0-40 normal Not Avail able [facility] [address] [place] [address] 3, [place], [address], 01/27/2023 14:52:51 01/27/20 23 01/26/2023 CMET ALT (SGPT) 18 IU/L 0-32 normal Not Avail able [facility] [address] [place] [address] 3, [place], [address], 01/27/2023 14:52:51 01/27/20 23 01/26/2023 ACUTE HEPAT ITIS PANEL sent to ref lab[I] No Value Not Available [facility] [address] [place] [address] 3, [place], [address], 01/27/2023 14:52:52 01/27/20 23 01/26/2023 ACUTE HEPAT ITIS PANEL hep A Ab, IgM Negati ve negati ve normal Not Available [facility] [address] [place] [address] 3, [place], [address], 01/27/2023 14:52:52 01/27/20 23 01/26/2023 ACUTE HEPAT ITIS PANEL HBsAg screen Negati ve negati ve normal Not Available [facility] [address] [place] [address] 3, [place], [address], 01/27/2023 14:52:52 01/27/20 23 01/26/2023 ACUTE HEPAT ITIS PANEL hep B core Ab, IgM Negati ve negati ve normal Not Available [facility] [address] [facility] [address], [place], [address], 01/27/2023 14:52:52 01/27/20 23 01/26/2023 ACUTE HEPAT ITIS PANEL HCV Ab Non Reacti ve non reacti ve normal Not Available [facility] [address] [facility] [address], [place], [address], 01/27/2023 14:52:52 01/27/2001/26/2023 ACUTE HEPAT ITIS PANEL interpretati on: Commen t Not infec gwendolyn with HCV unles s early or acute infec tion is suspe cted (whic h may be delay ed in an immun ocomp romis ed indiv idual ), or other evide nce exist s to indic ate HCV infec tion. Not Available [facility] [address] [facility], [place], [address], 01/27/2023 14:52:52 01/27/20 23 01/26/2023 QUANT IFERO N PM - TB GOLD PLUS quantiferon incubation INCUBA TION PERFOR MED. Not Available [facility] [address] [facility] [address], [place], [address], 01/27/2023 14:52:52 01/27/20 23 01/26/2023 QUANT IFERO [...] y metho dolog y Not Available [facility] [address] [facility] [address], [place], [address], 01/27/2023 14:52:52 01/27/20 23 01/26/2023 QUANT IFERO [...] ol for the test. Not Available [facility] [address] [facility] [address], [place], [address], 01/27/2023 14:52:52 01/27/20 23 01/26/2023 QUANT IFERO N PM - TB GOLD PLUS quantiferon TB1 Ag value 0.00 IU/mL Not Available [facility] [address], [place], [address], 01/27/2023 14:52:52 01/27/20 23 01/26/2023 QUANT IFERO N PM - TB GOLD PLUS quantiferon TB2 Ag value 0.00 IU/mL Not Available [facility] [address], [place], [address], 01/27/2023 14:52:52 01/27/20 23 01/26/2023 QUANT IFERO N PM - TB GOLD PLUS quantiferon nil value 0.00 IU/mL Not Available [facility] [address], [place], [address], 01/27/2023 14:52:52 01/27/20 23 01/26/2023 QUANT IFERO N PM - TB GOLD PLUS quantiferon mitogen value >10.00 IU/mL Not Available [facility] [address] [facility] [address], [place], [address], 01/27/2023 14:52:52 Result Notes None recorded. Problems Name Problem SNOMED Code Status Onset Date Resolution Date Notes Provider Name and Address Organization Details Recorded Time Flexural psoriasis 745040572 Active 2014 Descriptio n: OTHER PSORIASIS AND SIMILAR DISORDERS Not Available [facility] 3 14:49:03 Notes:Some problems listed i n Documents: #[id number], #[id number] could not be added to this patient's chart. Please review these documents and add these problems to the patient's chart manually as needed. Problem Notes None recorded. Medical Equipment None Reported. Allergies Allergen ID Allergen Name Allergen Category Reaction Reaction Severity Criticality Documentation Date Start Date Code Code System Note Provider Name and Address Organization Details Recorded Time 224158 amoxicill in medicatio n Not available Not available Not available 09/10/20212016 723 RxNorm Sever ity: Criti nithin Entry Date: 03/31 Not Available [facility] 1 15:26:14 Medications Name Sig Start Date [...] Tobacco Smoking Status Never Smoker Not Available [facility] 09/23/2021 21:54:40 What Was The Date Of [...] ICD10 Code Diagnosis IMO Codes Diagnosis Note [id number] Ella Sheppard NP [facility]_Derma tology_21 [address] [place] [address] 01/15/2022 08:27:57 01/15/2022 09:08:07 Plaque psoriasis 318939986 L40.0 Stelara 90 mg , still flaring quite a bitNever clears her thick scalp psroasis.C louis Huang led all topicalsFa iled nUVBLab work completed and WNL Scalp and trunk - thick plaques [id number] Regis Green MD [facility]_Derma tology_21 [address] [place] [address] 01/11/2023 07:44:15 01/11/2023 08:33:04 Psoriasis vulgaris 046236474 L40.0 flared after stopping Skyrizi , will [...] Member ID Guarantor Name 01/07/2023 1 [facility] [id number] Siria Secone [id number] Siria Secone 01/07/2023 1 [facility] [id number] Stephen Mujica [id number] Siria Secone Notes Date Note Type Note Provider Name and Address Organization Details Recorded Time 2 text/html plaque psoriasiscurrently on stelara 90 mgdoes not ever clearhas significant scalp and trunk plaques Ella Sheppard NP [address], [place], [address], [facility] 01/15/2022 09:08:01 3 text/html psoriasis follow upStelara restart pt stopped skyrizi based upon now not , has flared and wants to restart Regis Green MD [address] [place] [address],[address], [place], [address], [facility] 01/11/2023 08:19:43 OBGyn Episode No OBEpisode recorded.
--- OUTSIDE RECORDS SUMMARY | 2025-10-22 19:42 | XMS_ITS | Clinical Summary ---
Author Organization [facility], [facility], and [facility] Address [address] [facility]. [address] [place] [address] Care Team Providers Care Tomato Grader Name Role Phone Art Whalen MD Unavailable Siddhartha Ocampo MD Unavailable [phone] Malcolm Frausto Primary Care Provider [phone] Allergies Active Allergy Reactions Criticality Noted Date [...] patient's age to complete this topic Insurance [facility] [employer]SSENTIAL [employer]AN [id number] [facility] [employer] [id number]&[id number] Care Teams Tomato Grader Relationship Specialty Start Date End Date NehemiahMalcolm quinones [address] [place] [address] PCP - General 04/06/25 Art Whalen MD [address] [place] [address] Medicine - Cardiology 02/28/21 Siddhartha Ocampo MD [address] [place] [phone] Medicine - Pulmonology 02/28/21
--- NOTE | 2025-10-22 19:55 | PC.NURSE ---
MRI screening form completed by t/w and faxed to MRI
[2025-10-22 19:58] LABS: MANUAL DIFF FLAG NO
[2025-10-22 20:20] LABS: Hematocrit 40.7 % (37.0-47.0); Hemoglobin 13.8 g/dl (12.0-16.0); Imm Gran Abs Auto 0.03 X10*3/uL (0.00-0.03); Imm Gran Pct Auto 0.3 % (0.0-0.4); Lymphocytes Absolute Auto 2.5 X10*3/uL (1.2-4.9); Mean Corpuscular HGB Conc 33.9 g/dl (31.0-35.0); Mean Corpuscular Hemoglobin 29.7 pg (27.0-33.0); Mean Corpuscular Volume 87.5 fL (80.0-98.0); NRBC Abs Auto 0.000 X10*3/uL (0.0-0.012); NRBC Pct Auto 0.0 /100WBC (0.0-0.2); Platelet Count 221 X10*3/uL (160-400); Red Blood Count 4.65 X10*6/uL (4.20-5.50); White Blood Count 9.0 X10*3/uL (4.8-10.8)
[2025-10-22 20:29] LABS: Anion Gap 11 (12-20); Blood Urea Nitrogen 19 mg/dL (9-16); Calcium 9.6 mg/dL (8.4-10.2); Carbon Dioxide 25 mmol/L (22-29); Chloride 110 mmol/L (96-108); Creatinine Clr Calc Pharmacy 107.4; Estimated Glomerular Filt Rate > 60; Potassium 3.8 mmol/L (3.3-5.1); Sodium 142 mmol/L (135-145)
[2025-10-22 22:19] VITALS: BP 158/74; PULSE 112; RESP 18; TEMP 36.6; O2SAT 98
== END 2025-10-22 22:19 | disposition home or self-care (01) ==
PROVIDERS: Emergency Provider Emergency Medicine Emergency Medical Services
DX: S43.421A Sprain of right rotator cuff capsule, initial encounter (principal); M54.2 Cervicalgia; M79.641 Pain in right hand; X58.XXXA Exposure to other specified factors, initial encounter; Y93.9 Activity, unspecified; Y92.9 Unspecified place or not applicable; Y99.8 Other external cause status
CPT/HCPCS: 36415; 72125; 72141; 80048; 84702; 85025; 99282; 99284

== ENCOUNTER → 2025-10-22 15:53 | Outpatient (BNV) | payer OTHER, SELFPAY | PROVIDERS: Visit Provider Radiology Diagnostic Radiology | DX: R20.2 Paresthesia of skin (principal); M79.601 Pain in right arm | CPT/HCPCS: 72125; 72141 ==

== ENCOUNTER → 2025-10-23 11:39 | Outpatient (BNVA) | payer OTHER, SELFPAY | PROVIDERS: Visit Provider Emergency Medicine | DX: Z13.89 Encounter for screening for other disorder (principal) | CPT/HCPCS: 99213 ==

== ENCOUNTER 2025-11-06 09:24 | Outpatient (REF) | payer OTHER, SELFPAY ==
--- NOTE | 2025-11-06 09:26 | EMG_ITS ---
Chief complaint: Right shoulder pain Procedure done: NCS and EMG of right upper extremity Right median and ulnar motor studies were performed. Right median and ulnar mixed sensory, median and lateral antecubital brachial sensory and radial sensory studies were performed and needle examination was performed. Findings: No significant abnormality noted. Impression: This is an unremarkable study with no evidence of median or ulnar neuropathy, plexopathy, or radiculopathy Codin [id number] [facility]
--- OUTSIDE RECORDS SUMMARY | 2025-11-06 10:53 | XMS_ITS | Patient Health Record ---
Author Organization [facility] Address [address] [place] [id number] Allergies Allergen (clinical drug ingredient) Drug/Non Drug Allergy documented on EMR Reaction Allergy Type Onset Date Status amoxicillin Amoxicillin Unknown Drug Allergy Act abdi Latex Latex Unknown Allergy Active Penicillin Unknown Drug Allergy Active Reason For Referral No Information Problems Problem Type SNOMED Code ICD Code Onset Dates Problem Status W/U Status Risk Notes Problem Acute migraine (4590080562637 08) Acute migraine (G43.909) Active confirmed Plan Of Treatment No Information Insurance Providers Payer Name Payer Address Payer Phone Subscriber Number Group Number Insured Name Patient Relationship to Insured Coverage Start Date Coverage End Date [facility] [address] [place] [address] [id number] Siria Morrison Self - patient is the insured Medications Administered Medication Instructions Date of Administration Dosage Notes ketorolac 60mg/2mL 01/22/2024 1 mL
--- OUTSIDE RECORDS SUMMARY | 2025-11-06 10:53 | XMS_ITS | Clinical Summary ---
Author Organization [facility], [facility], and [facility] Address [address] [facility]. [address] [place] [address] Care Team Providers Care Environmental Sampling Technician Name Role Phone Art Whalen MD Unavailable Siddhartha Ocampo MD Unavailable [phone] Malcolm Frausto Primary Care Provider [phone] Allergies Active Allergy Reactions Criticality Noted Date [...] patient's age to complete this topic Insurance [facility] [employer]ENTIAL [employer]AN [id number] [facility] [employer] [id number] Care Teams Environmental Sampling Technician Relationship Specialty Start Date End Date NehemiahMalcolm quinones [address] [place] [address] PCP - General 04/06/25 Art Whalen MD [address] [place] [address] Medicine - Cardiology 02/28/21 Siddhartha Ocampo MD [address] [place] [phone] Medicine - Pulmonology 02/28/21
--- OUTSIDE RECORDS SUMMARY | 2025-11-06 10:53 | XMS_ITS | Patient Health Record ---
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 Role Phone NO, PCP Primary Care Provider Adiel Vilchis Unavailable [phone] Allergies Allergen (clinical drug ingredient) Drug/Non Drug [...] 09/17/2025 Encounters Encounter Location Date Provider Diagnosis [facility] UROLOGIST MD, [address] [place] [address] 09/17/2025 Adiel Zuniga Viral URI J06.9 Assessments Encounter Date Diagnosis (ICD Code) Assessment Notes Treatment Notes Treatment Clinical Notes Section Notes 09/17/2025 Viral URI (ICD-10 - J06.9) Plan Of Treatment No Information Insurance Providers Payer Name Payer Address Payer Phone Subscriber Number Group Number Insured Name Patient Relationship to Insured Coverage Start Date Coverage End Date [facility] [address] [place] [address] [id number] Siria Morrison Self - patient is the insured Medical (General) History Medical History History ICD Code Asthma
== END 2025-11-06 09:25 | disposition home or self-care (01) ==
LOC: HO.NEURO 09:24
PROVIDERS: Visit Provider Physician Assistant Medical
DX: M75.41 Impingement syndrome of right shoulder (principal); G56.91 Unspecified mononeuropathy of right upper limb
CPT/HCPCS: 95886; 95910

== ENCOUNTER → 2025-11-06 09:26 | Outpatient (BNV) | payer OTHER, SELFPAY | PROVIDERS: Visit Provider Psychiatry & Neurology Neurology | DX: G56.91 Unspecified mononeuropathy of right upper limb (principal) | CPT/HCPCS: 95886; 95910 ==

== ENCOUNTER → 2025-11-13 07:41 | Outpatient (BNVA) | payer OTHER, SELFPAY | PROVIDERS: Visit Provider Emergency Medicine | DX: Z13.89 Encounter for screening for other disorder (principal) | CPT/HCPCS: 99213 ==

== ENCOUNTER 2025-11-16 13:41 | Outpatient (AMB) | payer OTHER, SELFPAY ==
--- NOTE | 2025-11-16 13:45 | MHC.PC.OV ---
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: No Accompanied by: Self / Same As Patient Allergies amoxicillin Allergy (Intermediate, Verified 11/16/25 14:04) Hives latex Allergy (Intermediate, Verified 11/16/25 14:04) Hives Penicillins (PCN) Allergy (Verified 11/16/25 14:04) Hives Medication List - Last Reconciled 11/16/25 by SHERLY Kaufman albuterol sulfate 90 mcg/actuation (ProAir RespiClick) 2 inhalations inhalation Q4-6H PRN drospirenone (contraceptive) (Slynd) 4 mg PO DAILY fluticasone furoate-vilanterol 100-25 mcg/dose (Breo Ellipta) 1 inh inhalation DAILY lidocaine 5% 1 patch topically 1 patch daily q 12 hours; leave on most painful area for up to 12 hrs magnesium oxide 400 mg PO BEDTIME riboflavin (vitamin B2) 400 mg PO DAILY Tobacco use date assessed: 11/16/25 Dental Screening Dental Screen Date: 11/16/25 Did you have a dental visit in the last 12 months?: Yes Did you have a dental problem in the last 6 months where you did not have access to dental care?: No Was dental information given to patient?: Patient has dentist 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 HPI Details Previous PCP: Lives in [place] and works in [place] Last visit:This year, but she cannot remember Last PE: Some time this year, but she cannot remember Specialist: needs a referral cardiology, operations executive, neurologist OBGYN: needs an obgyn referral Past medical history: TBI, SVT, psoriasis, PTSD, anxiety and depression, asthma, migraines Medications: proair, breo inhaler Family HX:heart disease, kidney disease, DM, HTN, FATHER, HTN, obesity, DM Mother, maternal grandmother htn and dm Problem: The patient is a 25 year old female presenting to establish care and obtain specialist referrals. She resides in [place] but works locally and is planning to move to the area. She has a history of supraventricular tachycardia (SVT), which began during her , causing her heart rate to elevate to the 170s-180s. 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 The patient reports a history of multiple traumatic brain injuries (TBIs), with her first occurring in high school. This has resulted in significant short-term memory impairment. She suffers from daily headaches diagnosed as migraines, which are preceded by floaters and cause light sensitivity. She previously took topiramate for her migraines, but her neurologist retired. She has psoriasis and was previously on a medication that caused her to become immunocompromised. She is not taking any medication for it currently as she needs a referral to a local operations executive. Additional medical history includes asthma, for which she takes Breo 100 mcg daily. She sees a therapist weekly for PTSD, anxiety, and depression and previously took Zoloft, which she discontinued due to lack of efficacy. Family history is significant for heart disease, kidney disease, hypertension, diabetes, and obesity in her father. Her mother has hypertension, obesity, and diabetes, and her maternal grandmother had hypertension and diabetes. Health Maintenance - The patient's last physical exam was earlier this year. - Referrals will be made to Cardiology, Dermatology, TRAFFIC REPRESENTATIVE, and Neurology. - Recent bloodwork from an emergency department visit showed a normal CBC and kidney function. - Orders will be placed for a comprehensive metabolic panel (CMP), lipid panel (fasting), thyroid panel, vitamin D level, and a urinalysis. - Discussed fabi-gfr-slsgaef options for migraine prevention, including magnesium and vitamin B2. Social History - The patient resides in [place], [place], but works in this area and is planning to relocate here. - She has a history of significant weight loss, having lost over 100 pounds. - The patient has a son. Results - Recent labs from an ED visit were reviewed with the following results: - CBC: Within normal limits, patient is not anemic. - Kidney function: Normal. - Random glucose: Normal. - Electrolytes: Normal. therapist once a week, [facility] Gait[facility] therapist -was on zoloft for long time and this has not help, does not take it anymore floaters-precursion, takes power tylenol [facility] Medical History Asthma SVT (supraventricular tachycardia) Migraines Psoriasis TBI (traumatic brain injury) Depression Acute anxiety ADHD PTSD (post-traumatic stress disorder) History of gastrectomy Family History (Updated 11/16/25 @ 15:13 by SHERLY Kaufman) Father Kidney disease Heart disease Diabetes Hypertension Mother Hypertension Diabetes Maternal Grandmother Hypertension Diabetes Other Mental health disorder Obesity Social History Alcohol intake: never Patient Tobacco Use Status: Former Tobacco user e-Cigarette/Vaping Use: Never Used Current occupational status: employed Cognitive needs: No Hearing needs: No Vision needs: Yes Questionnaire PHQ-9 Over the last 2 weeks, how often have you been bothered by any of the following problems? 1. Little interest or pleasure in doing things: nearly every day 2. Feeling down, depressed, or hopeless: nearly every day 3. Trouble falling or staying asleep, or sleeping too much: nearly every day 4. Feeling tired or having little energy: nearly every day 5. Poor appetite or overeating: nearly every day 6. Feeling bad about yourself - or that you are a failure or have let yourself or your family down: nearly every day 7. Trouble concentrating on things, such as reading the newspaper or watching television: nearly every day 8. Moving or speaking so slowly that other people could have noticed. Or the opposite - being so fidgety or restless that you have been moving around a lot more than usual: nearly every day 9. Thoughts that you would be better off or of hurting yourself in some way: nearly every day Total score: 27 Depression Screening Interpretation: Positive Depression Screening Done: Yes 86921 - PHQ-9 Billing: Yes Source: Developed by Drs. Donn Fowler, Mary Oliver, Leo Metzger and colleagues, with an educational sigifredo from [employer]. Thrive Questionnaire Date Thrive assessed: 11/16/25 I am a: Patient What is your living situation today?: I do not have a steady places to live I choose not to answer this question Within the past 12 months, did the food you bought not last and you didn't have the money to get more?: Often true Within the past 12 months, did you worry whether your food would run out before you got money to buy more?: Often true Do you have trouble paying for medicines?: Yes Do you have trouble getting transportation to medical appointments?: No Do you have trouble paying your heating and electricity bill?: No Do you have trouble taking care of your child, family member or friend?: No Do you have trouble with day-to-day activities such as bathing, preparing meals, shopping, managing finances, etc.?: I choose not to answer this question Are you currently unemployed and looking for a job?: No Are you interested in more education?: Yes Currently or been in a relationship where the following occur: No concerns reported THRIVE Score: 3 AUDIT C Alcohol Use Questionnaire (AUDIT-C) 1. How often do you have a drink containing alcohol?: Never Total Score: 0 NATALIIA-7 AMB Questionnaire NATALIIA-7 Date NATALIIA - 7 assessed: 11/16/25 Feeling nervous, anxious, or on edge: 3 = Nearly every day Not being able to stop or control worryin = Nearly every day Worrying too much about different things: 3 = Nearly every day Trouble relaxin = Nearly every day Being so restless that it is hard to sit still: 3 = Nearly every day Becoming easily annoyed or irritable: 3 = Nearly every day Feeling afraid as if something awful might happen: 3 = Nearly every day Total NATALIIA-7 score (0-4 normal; 5-9 mild; 10-14 moderate; 15-21 severe): 21 Source: Developed by Drs. Donn Fowler, Mary Oliver, Leo Metzger and colleagues, with an educational sigifredo from [employer]. NATALIIA-7 Assessment Billing NATALIIA-7 Assessment Tool: NATALIIA-7 Assessment 86267 Review of Systems Narrative Review of Systems - Cardiovascular: Reports palpitations associated with SVT episodes. Denies chest pain. - Respiratory: Reports intermittent dyspnea if she does not take her daily asthma medication. - Neurological: Reports daily headaches diagnosed as migraines, which are preceded by floaters. Reports associated photophobia but denies phonophobia. Reports dizziness upon standing up too quickly or with severe migraines. Reports impaired short-term memory secondary to a history of TBIs. - Gastrointestinal: Denies stomach pain or any change in bowel habits. - Genitourinary: Denies any urinary issues. - Musculoskeletal: Denies joint pain. - Dermatologic: Reports having psoriasis. - Psychiatric: Reports receiving therapy for PTSD, anxiety, and depression. Const Reports headache(s) (Migraines, ( aura:floaters), sensitive to light) Eyes Denies loss of vision ENT Denies vertigo, Denies dizziness, Reports headache(s) (Migraines, ( aura:floaters), sensitive to light) and Denies sore throat Card Denies chest pain, Reports rapid heart rate (HX SVT), Denies leg edema, Denies lightheadedness and Reports dyspnea (Without her Breo inhaler) Resp Denies cough, Denies hemoptysis, Reports dyspnea (Without her Breo inhaler) and Denies wheezing GI Denies abdominal pain, Denies melena, Denies constipation, Denies diarrhea and Denies vomiting Denies urinary frequency, Denies dysuria and Denies urinary urgency Musc Denies arthralgias, Denies joint swelling, Denies numbness and Denies tingling Skin/Breast Reports other (Psoriasis) Neuro Denies Abnormal speech present, Denies behavioral changes, Denies vertigo, Denies dizziness, Reports headache(s) (Migraines, ( aura:floaters), sensitive to light), Denies loss of vision, Reports memory loss (due to TBIs), Denies numbness and Denies tingling Psych Reports anxiety, Denies behavioral changes, Denies depression, Reports memory loss (due to TBIs), Denies panic attacks, Denies homicidal ideation, Denies suicidal ideation and Reports other (PTSD) Steve/Lymph Denies easy bleeding and Denies easy bruising Aller/Immun Denies wheezing Physical exam (Primary Care) Vital Signs: Last Vital Signs Temp 98.4 F 11/16/25 13:46 Pulse 103 H 11/16/25 13:46 Resp 18 11/16/25 13:46 BP 118/66 11/16/25 13:46 Pulse Ox 99 11/16/25 13:46 Oxygen Delivery Method Room Air 11/16/25 13:46 BMI result Body Mass Index 28.0 Tobacco/Smoking Status: Tobacco use Status Tobacco use date assessed 11/16/25 11/16/25 13:58 Patient Tobacco Use Status Former Tobacco user 11/16/25 13:58 e-Cigarette/Vaping Use Never Used 11/16/25 13:58 PHQ-9: PHQ-9 Score PHQ-9: Total score 27 11/16/25 14:08 Depression Screening Interpretation: Positive Thrive Assessment: Date of Thrive Assessment Date Thrive assessed 11/16/25 11/16/25 13:58 Currently or been in a relationship where the following occur: No concerns reported Narrative Physical Exam - Vital Signs: Blood pressure is normal, heart rate is elevated. Oxygen saturation is good. - Eyes: Extraocular movements are intact. - Ears: Psoriasis noted behind the ear. Minimal cerumen impaction observed bilaterally. - Oropharynx: Clear on inspection. - Lungs: Clear to auscultation bilaterally. - Abdomen: Soft and non-tender to palpation. - Skin: Psoriasis is noted on the scalp. Const General: healthy appearing, no acute distress, alert and awake Nutritional Appearance: well nourished Orientation/consciousness: oriented to person, oriented to place and oriented to time HENMT Ears: TM normal on the left and Abnormal EAC present excessive cerumen on the right General nose exam: Normal nasal mucous membranes and turbinates present Eyes Conjunctivae: conjunctivae normal Sclerae: sclerae normal Pupils: Equal, round and reactive pupils present Neck Neck: Yes no lymphadenopathy and Yes no JVD Thyroid: Thyroid normal Carotids: no bruits Resp Effort & Inspection: normal respiratory effort and not tachypneic Auscultation: no crackles, no rales, no rhonchi and no wheezes Cardio Rate: regular rate Rhythm: regular rhythm Heart sounds: no murmurs and normal S1 and S2 GI Palpation (GI): Soft to palpation, nontender, no hepatomegaly and no splenomegaly Auscultation: normal bowel sounds General: Yes no CVA tenderness Back/Spine/Pelvis Back: no CVA tenderness Skin General skin exam: dry skin Rashes: rashes noted (Psoriasis behind right ear) Neuro General: oriented to person, oriented to place and oriented to time Cranial nerves: Yes Equal, round and reactive pupils present Speech: No Abnormal speech present Gait exam (Neuro): Normal gait present Motor exam (neuro): no tremor noted Extrem Right upper extremity: full ROM Left upper extremity: full ROM Right lower extremity: full ROM; no edema Left lower extremity: full ROM; no edema Psych Mental Status: mental status grossly normal Speech and movement: Normal speech and movement present Affect: normal affect Attitude: cooperative Thought process: Normal thought process present Coding Level of Care Code New Pt Level 4 (30529) Diagnoses Traumatic brain injury with loss of consciousness, subsequent encounter S06.9X9D Encounter type: subsequent encounter Loss of consciousness presence/duration: with LOC of unspecified duration Psoriasis L40.9 PTSD (post-traumatic stress disorder) F43.10 SVT (supraventricular tachycardia) I47.10 Migraine without status migrainosus, not intractable, unspecified migraine type G43.909 Intractability: not intractable Migraine type: unspecified Status migrainosus presence: without status migrainosus Mild persistent asthma without complication J45.30 Asthma complication type: uncomplicated Asthma persistence: persistent Asthma severity: mild Encounter to establish care with new provider Z76.89 Additional Codes PHQ-9 - 33862 - PHQ-9 Billing: Yes ([id number]) NATALIIA-7 Assessment Billing - NATALIIA-7 Assessment Tool: NATALIIA-7 Assessment 33958 ([id number]) Time Spent (min) 36 Assessment & Plan Assessment & Plan (1) TBI (traumatic brain injury): Code(s): S06.9XAA - Unspecified intracranial injury with loss of consciousness status unknown, initial encounter Category: Medical Qualifiers: Encounter type: subsequent encounter Loss of consciousness presence/duration: with LOC of unspecified duration Qualified Code(s): S06.9X9D - Unspecified intracranial injury with loss of consciousness of unspecified duration, subsequent encounter (2) Psoriasis: Code(s): L40.9 - Psoriasis, unspecified Category: Medical (3) PTSD (post-traumatic stress disorder): Code(s): F43.10 - Post-traumatic stress disorder, unspecified Category: Medical (4) SVT (supraventricular tachycardia): Code(s): I47.10 - Supraventricular tachycardia, unspecified Category: Medical (5) Migraines: Code(s): G43.909 - Migraine, unspecified, not intractable, without status migrainosus Category: Medical Qualifiers: Intractability: not intractable Migraine type: unspecified Status migrainosus presence: without status migrainosus Qualified Code(s): G43.909 - Migraine, unspecified, not intractable, without status migrainosus (6) Asthma: Code(s): J45.909 - Unspecified asthma, uncomplicated Category: Medical Qualifiers: Asthma complication type: uncomplicated Asthma persistence: persistent Asthma severity: mild Qualified Code(s): J45.30 - Mild persistent asthma, uncomplicated (7) Encounter to establish care with new provider: Code(s): Z76.89 - Persons encountering health services in other specified circumstances Category: Medical Plan Plan Patient was informed and verbally consented to the use of an ambient scribe for clinic note documentation during this visit. 1. Establishment Of Care The patient is new to the practice and requires coordination of care for multiple chronic conditions. Comprehensive lab work will be ordered, including a CMP, lipid panel (fasting), thyroid panel, vitamin D level, and a urinalysis to establish baseline values. Referrals will be placed to Cardiology, Dermatology, TRAFFIC REPRESENTATIVE, and Neurology to facilitate specialist management. A follow-up appointment will be scheduled in seven weeks to review lab results and the status of referrals. 2. 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 A referral will be placed to a local ore crushing dust collector for continued management. 3. Migraine The patient experiences daily headaches diagnosed as migraines and is not currently on prophylactic medication. Ahdu-tbv-yotivxf preventative supplements, including magnesium and vitamin B2, were recommended. A referral to Neurology will be placed for further evaluation and management, as her previous neurologist retired. Topiramate 100 mg ordered. 4. Psoriasis The patient has a history of psoriasis but is not on current therapy. A referral will be provided to a local operations executive for management. 5. Asthma The patient has a diagnosis of asthma and uses Breo 100 mcg daily for control. Continue current medication; no changes were made to her regimen at this visit. 6. Post-Traumatic Stress Disorder, Anxiety And Depression The patient is actively engaged in weekly therapy for PTSD, anxiety, and depression. She previously stopped taking Zoloft due to ineffectiveness. Continue with current therapy. Patient scored 27 on PHQ-9, denies any plans on hurting herself or someone else. Discussion Notes I have reviewed the patient's extensive medical history as part of this new patient visit. We discussed the need for local specialist care, and I will be placing referrals to Cardiology, Dermatology, TRAFFIC REPRESENTATIVE, and Neurology. For her migraines, I provided education on ubwb-ikk-jeecovw preventative options including magnesium and vitamin B2. I explained that we would order a comprehensive set of baseline labs, including a CMP, lipid panel, thyroid panel, vitamin D, and a urinalysis, and noted that the lipid panel requires fasting. We reviewed recent lab results from an ED visit, which were reassuring. I have scheduled a follow-up appointment in seven weeks to review the results of the new labs and assess the progress of her specialist referrals. Patient Instructions - Please proceed to the lab to have blood and urine tests done. Remember that you must fast (nothing to eat or drink except water) before the cholesterol test. - My office will submit referrals for you to see specialists for your heart (Cardiology), skin (Dermatology), women's health (TRAFFIC REPRESENTATIVE), and headaches (Neurology). - To help prevent your daily headaches, you can try taking a Magnesium supplement at night and a Vitamin B2 supplement daily. - Continue taking your Breo inhaler for asthma every day as prescribed. - Please schedule a follow-up appointment in about seven weeks to go over your lab results. - If you remember any other health information that was not discussed, please call our office. Orders: Orders Lipid Panel Today G43.909 - Migraine, unspecified, not intractable, without status migrainosus, I47.10 - Supraventricular tachycardia, unspecified, J45.909 - Unspecified asthma, uncomplicated, Z76.89 - Persons encountering health services in other specified circumstances TSH reflex Free T4 Today G43.909 - Migraine, unspecified, not intractable, without status migrainosus, I47.10 - Supraventricular tachycardia, unspecified, J45.909 - Unspecified asthma, uncomplicated, Z76.89 - Persons encountering health services in other specified circumstances Comprehensive [place]. Panel Fast Today G43.909 - Migraine, unspecified, not intractable, without status migrainosus, I47.10 - Supraventricular tachycardia, unspecified, J45.909 - Unspecified asthma, uncomplicated, Z76.89 - Persons encountering health services in other specified circumstances Vitamin D 25-OH Total Today G43.909 - Migraine, unspecified, not intractable, without status migrainosus, I47.10 - Supraventricular tachycardia, unspecified, J45.909 - Unspecified asthma, uncomplicated, Z76.89 - Persons encountering health services in other specified circumstances UA CC w/rflx Micro + Cult Today G43.909 - Migraine, unspecified, not intractable, without status migrainosus, I47.10 - Supraventricular tachycardia, unspecified, J45.909 - Unspecified asthma, uncomplicated, Z76.89 - Persons encountering health services in other specified circumstances Referrals Cardiology Referral I47.10 - Supraventricular tachycardia, unspecified Neurology Referral G43.909 - Migraine, unspecified, not intractable, without status migrainosus, S06.9X9D - Unspecified intracranial injury with loss of consciousness of unspecified duration, subsequent encounter TRAFFIC REPRESENTATIVE Referral Z01.419 - Encounter for gynecological examination (general) (routine) without abnormal findings Dermatology Referral L40.9 - Psoriasis, unspecified Medications: New topiramate XR 100 mg PO DAILY 90 caps 3RF magnesium oxide 400 mg PO BEDTIME 90 tabs 3RF riboflavin (vitamin B2) 400 mg PO DAILY 90 tabs 3RF fluticasone furoate-vilanterol 100-25 mcg/dose (Breo Ellipta) 1 inh inhalation DAILY 60 ea 3RF albuterol sulfate 90 mcg/actuation (ProAir RespiClick) 2 inhalations inhalation Q4-6H PRN 1 ea 3RF shortness of breath or wheezing
--- OUTSIDE RECORDS SUMMARY | 2025-11-16 13:45 | XMS_ITS | Clinical Summary ---
Author Organization [facility], [facility], and [facility] Address [address] [facility]. [address] [place] [address] Care Team Providers Care Checker Product Design Name Role Phone Art Whalen MD Unavailable Siddhartha Ocampo MD Unavailable [phone] Malcolm Frausto Primary Care Provider [phone] Allergies Active Allergy Reactions Criticality Noted Date [...] patient's age to complete this topic Insurance [facility] ESSENTIAL PLAN [id number] [facility] [employer]SSENTIAL PLAN [id number] Care Teams Checker Product Design Relationship Specialty Start Date End Date NehemiahMalcolm quinones [address] [place] [address] PCP - General 04/06/25 Art Whalen MD [address] [place] [address] Medicine - Cardiology 02/28/21 Siddhartha Ocampo MD [address] [place] [phone] Medicine - Pulmonology 02/28/21
[2025-11-16 13:46] VITALS: BP 118/66; PULSE 103; RESP 18; TEMP 36.9; O2SAT 99; BMI 28.0
--- OUTSIDE RECORDS SUMMARY | 2025-11-16 13:46 | XMS_ITS | Patient Health Record ---
Author Organization [facility] Address [address] [place] [id number] Allergies Allergen (clinical drug ingredient) Drug/Non Drug Allergy documented on EMR Reaction Allergy Type Onset Date Status amoxicillin Amoxicillin Unknown Drug Allergy Act abdi Latex Latex Unknown Allergy Active Penicillin Unknown Drug Allergy Active Reason For Referral No Information Problems Problem Type SNOMED Code ICD Code Onset Dates Problem Status W/U Status Risk Notes Problem Acute migraine ([id number]) Acute migraine (G43.909) Active confirmed Plan Of Treatment No Information Insurance Providers Payer Name Payer Address Payer Phone Subscriber Number Group Number Insured Name Patient Relationship to Insured Coverage Start Date Coverage End Date [facility] [address] [place] [phone] [id number] Siria Morrison Self - patient is the insured Medications Administered Medication Instructions Date of Administration Dosage Notes ketorolac 60mg/2mL 01/22/2024 1 mL
--- OUTSIDE RECORDS SUMMARY | 2025-11-16 13:46 | XMS_ITS | Data Portability ---
Author Organization [place] - .[facility], [facility] Address [address] [place] [address] Assessment No assessment recorded. Plan of Treatment [...] [facility], [address] , [place], [address], 11:02:10 XR, hand, 3 or more view - eval for possible fx...PE: tenderness to the right 3rd finger with tenderness and swelling... VC...WET READ. 2021 0[address] [facility], [address] , [place], [address], 11:02:10 Medication Orders None recorded. Patient TargetsNo targets recorded. Patient Instructions Encounter Date Encounter Id Patient Instructions Last Modified By Organization Details Last Modified Time 08/23/2022 [id number] A healthy lifestyle: care instructions Not available 08/24/2022 11:02:10 Reason for Referral None Reported. Results Created Date Observation Date Name Description Value Unit Range Abnormal Flag Note LastModifiedBy Organization Detail LastModifiedTime 08/23/2008/23/2022 XR, hand, 3 or more view No observ ation record ed. [id number] [address] [facility], [place], [address], 08/24/2022 08:15:59 Result Notes None recorded. Problems Name Problem SNOMED Code Status Onset Date Resolution Date Notes Provider Name and Address Organization Details Recorded Time Migraine 16647548 Active 022 DANNY Terrell - .[facility] 08/23/2022 14:46:09 Problem Notes None recorded. Procedures Surgical History Date Name Laterality Status Provider Name and Address Organization Details Recorded Time 2 . Ortho - RIGHT Upper Extremity completed Diogo DELGADO - .[facility] 08/23/2022 16:22:54 Imaging Results None recorded. Procedure Notes None recorded. Medical Equipment None Reported. Allergies Allergen ID Allergen Name Allergen Category Reaction Reaction Severity Criticality Documentation Date Start Date Code Code System Note Provider Name and Address Organization Details Recorded Time 4615077 Product containin g penicilli n (product) medicatio n Not available Not available Not available 08/23/2022 [id number] SNOMED DANNY Terrell - .[facility] 14:46:04 Medications Name Sig Start Date Stop Date Status Note LastModified by Organization Details LastModified Time active Not Available Not Avai lable Not Available Vitals Date Recorded Body height Body mass index (BMI) Body weight Body temperature Heart rate Respiratory rate Oxygen saturation Systolic And Diastolic Provider Name and Address Organization Details Last Updated DateTime 157.48 cm 35.7 kg/m2 05460.5 1 g 98.6 [degF] 83 /min 16 /min 98 % 108/72 mm[Hg] Diogo DELGADO - .[facility] 14:48:41 Social History Question Answer Notes LastModified by Organizat ion Details LastModified Time Tobacco Smoking Status Never Smoker DANNY Terrell - .[facility] 08/23/2022 14:46:54 RISK LEVEL - Segmentation Level 1 - Healthy [email or web address] Information not available 10/02/2022 What Was The Date Of Your Most Recent Tobacco Screening? 08/23/2022 [email or web address] Information not available 08/23/2022 Sex: Unknown Functional Status None recorded. Mental Status None recorded. Family History Relationship Description Onset Age of this Age Resolved Age Notes LastModified by Organization Details LastModified Time Father Diabetes mellitus [email or web address] Not available 2021 14:46:37 Father Hypertensive disorder [email or web address] Not available 2021 14:46:46 Mother Diabetes mellitus [email or web address] Not available 2021 14:46:37 Mother Hypertensive disorder Not available 2021 14:46:46 Medical History No medical history recorded. Gynecological HistoryNo gynecological history recorded. Obstetrics History GPAL:G 0 P 0 0 0 0 Past Encounters Encounter ID Performer Location Encounter Start Date Encounter Closed Date Diagnosis/Indication Diagnosis SNOMED-CT Code Diagnosis ICD10 Code Diagnosis IMO Codes Diagnosis Note [id number] CHAYA KRAUS_ WILLIAM [address] [id number] 08/23/2022 14:25:03 08/23/2022 15:52:54 Injury of finger 82194944 S69.91XA Fracture o f middle phalanx of finger 770347355 S62.620A Health Concerns Section Related Observation LastModified by Organization Detai ls LastModified Time None Recorded Concern Status LastModified by Organization Details LastModified Time None Recorded Advance Directives Directive None Recorded Payers Insurance Date Sequence Insurance Name Policy Number Policy Le Covered Member ID Le Member ID Guarantor Name 08/23/2022 1 [facility] [id number] Stephen Mujica [id number] AB Siria Morrison Notes Date Note Type [...] painOf note, [facility] and denies dysuria, abdominal pain, vaginal bleeding, back painDenies skin wound, nail involvement wrist pain; Pt is R hand dominant Flori walker, [place] - .[facility] 08/23/2022 17:41:36 OBGyn Episode No OBEpisode recorded.
--- OUTSIDE RECORDS SUMMARY | 2025-11-16 13:46 | XMS_ITS | Data Portability ---
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 prioritize protein 2. maintain fluid intake 3. adhere to the eating behaviors 4. incorporate physical activity as tolerated Not available 06/22/2024 09:49:18 Patient Instructions Encounter Date Encounter Id Patient Instructions Last Modified By Organization Details Last Modified Time 06/22/2024 [id number] Recommend: Bariatric diet and vitamin supplements Physical exercise to reach goal of 10K steps/day Dietitian follow-up, support group and bariatric surgery follow-up. [email or web address] Not available 06/22/2024 07:57:08 11/29/2024 [id number] Discussed protein goals and encouraged consuming at [...] /uL 3.4-10 .8 normal Not Available [facility] ([facility]) [address] [place], [address], 04/16/2025 09:05:19 04/11/20 25 2025 CBC WITH DIFFE RENTI AL/PL ATELE T RBC 3.94 x10e6 /uL 3.77-5 .28 normal Not Available [facility] ([facility]) [address] [facility], [place], [address], 04/16/2025 09:05:19 04/11/20 25 2025 CBC WITH DIFFE RENTI AL/PL ATELE T hemoglobin 12.0 g/dL 11.1-1 5.9 normal Not Available [facility] ([facility]) [address] [place], [address], 04/16/2025 09:05:19 04/11/2004/11/2025 CBC WITH DIFFE RENTI AL/PL ATELE T hematocrit 37.0 % 34.0-4 6.6 normal Not Available [facility] ([facility]) [address] [place], [address], 04/16/2025 09:05:19 04/11/2004/11/2025 CBC WITH DIFFE RENTI AL/PL ATELE T MCV 94 fL 79-97 normal Not Available [facility] ([facility]) [address] [place], [address], 04/16/2025 09:05:19 04/11/2004/11/2025 CBC WITH DIFFE RENTI AL/PL ATELE T MCH 30.5 pg 26.6-3 3.0 normal Not Available [facility] ([facility]) [address] [place], [address], 04/16/2025 09:05:19 04/11/2004/11/2025 CBC WITH DIFFE RENTI AL/PL ATELE T MCHC 32.4 g/dL 31.5-3 5.7 normal Not Available [facility] ([facility]) [address] [place], [address], 04/16/2025 09:05:19 04/11/2004/11/2025 CBC WITH DIFFE RENTI AL/PL ATELE T RDW 12.5 % 11.7-1 5.4 Not Available [facility] ([facility]) [address] [place], [address], 04/16/2025 09:05:19 04/11/2004/11/2025 CBC WITH DIFFE RENTI AL/PL ATELE T platelets 206 x10e3 /uL 150-45 0 normal Not Available [facility] ([facility]) [address] [place], [address], 04/16/2025 09:05:19 04/11/20 25 2025 CBC WITH DIFFE RENTI AL/PL ATELE T neutrophils 50 % not estab. normal Not Available [facility] ([facility]) [address] [place], [address], 04/16/2025 09:05:19 04/11/20 25 2025 CBC WITH DIFFE RENTI AL/PL ATELE T lymphs 40 % not estab. normal Not Available [facility] ([facility]) [address] [place], [address], 04/16/2025 09:05:19 04/11/20 25 2025 CBC WITH DIFFE RENTI AL/PL ATELE T monocytes 6 % not estab. normal Not Available [facility] ([facility]) [address] [place], [address], 04/16/2025 09:05:19 04/11/20 25 2025 CBC WITH DIFFE RENTI AL/PL ATELE T eos 3 % not estab. normal Not Available [facility] ([facility]) [address] [place], [address], 04/16/2025 09:05:19 04/11/20 25 2025 CBC WITH DIFFE RENTI AL/PL ATELE T basos 1 % not estab. normal Not Available [facility] ([facility]) [address] [place], [address], 04/16/2025 09:05:19 04/11/20 25 2025 CBC WITH DIFFE RENTI AL/PL ATELE T immature cells IMPLEMENTATION PROJECT MANAGER Not Available [facility] ([facility]) [address] [place], [address], 04/16/2025 09:05:19 04/11/20 25 2025 CBC WITH DIFFE RENTI AL/PL ATELE T neutrophils (absolute) 2.9 x10e3 /uL 1.4-7. 0 normal Not Available [facility] ([facility]) [address] [place], [address], 04/16/2025 09:05:19 04/11/20 25 2025 CBC WITH DIFFE RENTI AL/PL ATELE T lymphs (absolute) 2.2 x10e3 /uL 0.7-3. 1 normal Not Available [facility] ([facility]) [address] [place], [address], 04/16/2025 09:05:19 04/11/20 25 2025 CBC WITH DIFFE RENTI AL/PL ATELE T monocytes(ab solute) 0.3 x10e3 /uL 0.1-0. 9 normal Not Available [facility] ([facility]) [address] [place], [address], 04/16/2025 09:05:19 04/11/20 25 2025 CBC WITH DIFFE RENTI AL/PL ATELE T eos (absolute) 0.2 x10e3 /uL 0.0-0. 4 normal Not Available [facility] ([facility]) [address] [place], [address], 04/16/2025 09:05:19 04/11/20 25 2025 CBC WITH DIFFE RENTI AL/PL ATELE T baso (absolute) 0.1 x10e3 /uL 0.0-0. 2 normal Not Available [facility] ([facility]) [address] [place], [address], 04/16/2025 09:05:19 04/11/20 25 2025 CBC WITH DIFFE RENTI AL/PL ATELE T immature granulocytes 0 % not estab. Not Available [facility] ([facility]) [address] [facility], [place], [address], 04/16/2025 09:05:19 04/11/20 25 2025 CBC WITH DIFFE RENTI AL/PL ATELE T immature grans (abs) 0.0 x10e3 /uL 0.0-0. 1 Not Available [facility] ([facility]) [address] [facility], [place], [address], 04/16/2025 09:05:19 04/11/20 25 2025 CBC WITH DIFFE RENTI AL/PL ATELE T NRBC IMPLEMENTATION PROJECT MANAGER Not Available [facility] ([facility]) [address] [facility], [place], [address], 04/16/2025 09:05:19 04/11/20 25 2025 CBC WITH DIFFE RENTI AL/PL ATELE T hematology comments: IMPLEMENTATION PROJECT MANAGER Not Available [facility] ([facility]) [address] [facility], [place], [address], 04/16/2025 09:05:19 04/11/20 25 04/12/2025 COMP. METAB OLIC PANEL (14) glucose 79 mg/dL 70-99 normal Not Available [facility] ([facility]) [address] [place], [address], 04/16/2025 09:05:20 04/11/20 25 04/12/2025 COMP. METAB OLIC PANEL (14) BUN 12 mg/dL 6-20 normal Not Available [facility] ([facility]) [address] [place], [address], 04/16/2025 09:05:20 04/11/20 25 04/12/2025 COMP. METAB OLIC PANEL (14) creatinine 0.61 mg/dL 0.57-1 .00 normal Not Available [facility] ([facility]) [address] [facility] [place], [address], 04/16/2025 09:05:20 04/11/20 25 04/12/2025 COMP. METAB OLIC PANEL (14) eGFR 126 mL/mi n/1.7 3 >59 normal Not Available [facility] ([facility]) [address] [facility] [place], [address], 04/16/2025 09:05:20 04/11/20 25 04/12/2025 COMP. METAB OLIC PANEL (14) BUN/creatini ne ratio 20 9-23 normal Not Available [facility] ([facility]) [address] [facility] [place], [address], 04/16/2025 09:05:20 04/11/20 25 04/12/2025 COMP. METAB OLIC PANEL (14) sodium 143 mmol/ L 134-14 4 normal Not Available [facility] ([facility]) [address] [facility] [place], [address], 04/16/2025 09:05:20 04/11/20 25 04/12/2025 COMP. METAB OLIC PANEL (14) potassium 4.2 mmol/ L 3.5-5. 2 normal Not Available [facility] ([facility]) [address] [facility] [place], [address], 04/16/2025 09:05:20 04/11/20 25 04/12/2025 COMP. METAB OLIC PANEL (14) chloride 107 mmol/ L 96-106 above high normal Not Available [facility] ([facility]) [address] [facility] [place], [address], 04/16/2025 09:05:20 04/11/20 25 04/12/2025 COMP. METAB OLIC PANEL (14) carbon dioxide, total 18 mmol/ L 20-29 below low normal Not Available [facility] ([facility]) [address] [facility] [place], [address], 04/16/2025 09:05:20 04/11/20 25 04/12/2025 COMP. METAB OLIC PANEL (14) calcium 9.3 mg/dL 8.7-10 .2 normal Not Available [facility] ([facility]) [address] [facility], [address], 04/16/2025 09:05:20 04/11/20 25 04/12/2025 COMP. METAB OLIC PANEL (14) protein, total 6.6 g/dL 6.0-8. 5 normal Not Available [facility] ([facility]) [address] [facility], [address], 04/16/2025 09:05:20 04/11/20 25 04/12/2025 COMP. METAB OLIC PANEL (14) albumin 4.3 g/dL 4.0-5. 0 normal Not Available [facility] ([facility]) [address] [facility] [place], [address], 04/16/2025 09:05:20 04/11/20 25 04/12/2025 COMP. METAB OLIC PANEL (14) globulin, total 2.3 g/dL 1.5-4. 5 Not Available [facility] ([facility]) [address] [facility] [place], [address], 04/16/2025 09:05:20 04/11/20 25 04/12/2025 COMP. METAB OLIC PANEL (14) bilirubin, total 0.3 mg/dL 0.0-1. 2 normal Not Available [facility] ([facility]) [address] [facility] [place], [address], 04/16/2025 09:05:20 04/11/20 25 04/12/2025 COMP. METAB OLIC PANEL (14) alkaline phosphatase 64 IU/L 44-121 normal Not Available [facility] ([facility]) [address] [facility] [place], [address], 04/16/2025 09:05:20 04/11/20 25 04/12/2025 COMP. METAB OLIC PANEL (14) AST (SGOT) 13 IU/L 0-40 normal Not Available [facility] ([facility]) [address] [facility] [place], [address], 04/16/2025 09:05:20 2120 25 04/12/2025 COMP. METAB OLIC PANEL (14) ALT (SGPT) 13 IU/L 0-32 normal Not Available [facility] ([facility]) [address] [facility] [place], [address], 04/16/2025 09:05:20 04/11/20 25 04/12/2025 LIPID PANEL cholesterol, total 141 mg/dL 100-19 9 normal Not Available [facility] ([facility]) [address] [place], [address], 04/16/2025 09:05:21 04/11/20 25 04/12/2025 LIPID PANEL triglyceride s 56 mg/dL 0-149 normal Not Available [facility] ([facility]) [address] [place], [address], 04/16/2025 09:05:21 04/11/20 25 04/12/2025 LIPID PANEL HDL cholesterol 43 mg/dL >39 normal Not Available [facility] ([facility]) [address] [place], [address], 04/16/2025 09:05:21 04/11/20 25 04/12/2025 LIPID PANEL VLDL cholesterol nithin 12 mg/dL 5-40 Not Available [facility] ([facility]) [address] [place], [address], 04/16/2025 09:05:21 04/11/20 25 04/12/2025 LIPID PANEL LDL chol calc ([facility]) 86 mg/dL 0-99 Not Available [facility] ([facility]) [address] [place], [address], 04/16/2025 09:05:21 04/11/20 25 04/12/2025 LIPID PANEL LDL calc comment: IMPLEMENTATION PROJECT MANAGER Not Available [facility] ([facility]) [address] [facility] [place], [address], 04/16/2025 09:05:21 04/11/20 25 04/12/2025 IRON AND TIBC iron bind.cap.(TI BC) 292 ug/dL 250-45 0 normal Not Available [facility] ([facility]) [address] [facility] [place], [address], 04/16/2025 09:05:21 04/11/20 25 04/12/2025 IRON AND TIBC UIBC 224 ug/dL 131-42 5 normal Not Available [facility] ([facility]) [address] [place], [address], 04/16/2025 09:05:21 04/11/20 25 04/12/2025 IRON AND TIBC iron 68 ug/dL 27-159 normal Not Available [facility] ([facility]) [address] [place], [address], 04/16/2025 09:05:21 04/11/20 25 04/12/2025 IRON AND TIBC iron saturation 23 % 15-55 normal Not Available [facility] ([facility]) [address] [place], [address], 04/16/2025 09:05:21 04/11/20 25 04/12/2025 VITAM IN B12 AND FOLAT E vitamin B12 484 pg/mL 232-12 45 normal Not Available [facility] ([facility]) [address] [place], [address], 04/16/2025 09:05:22 04/11/20 25 04/12/2025 VITAM IN B12 AND FOLAT E folate (folic acid), serum 5.4 NG/mL >3.0 normal A serum folat e wm ntrat ion of less than 3.1 ng/mL is consi dered to repre sent clini nithin defic iency . Not Available [facility] ([facility]) [address] [facility], [place], [address], 04/16/2025 09:05:22 04/11/20 25 2025 HEMOG LOBIN A1C hemoglobin A1C 5.1 % 4.8-5. 6 normal Predi abete s: 5.7 - 6.4 Diabe lobito: >6.4 Glyce keo contr ol for adult s with diabe lobito: <7.0 Not Available [facility] ([facility]) [address] [facility], [place], [address], 04/16/2025 09:05:23 04/11/20 25 04/12/2025 TSH TSH 2.770 uIU/m L 0.450- 4.500 normal Not Available [facility] ([facility]) [address] [facility], [place], [address], 04/16/2025 09:05:23 04/11/2004/12/2025 VITAM IN D, 25-HY [...] Nicholas ludwig [place]: [facility] . 2. Kenton guzman MF, Luisa ey [place], Stewart off-F errar i LAZARO, et al. Evalu ation , treat ment, and preve ntion of vitam in D defic iency : an Endoc rine Socie ty clini nithin pract ice guide line. EM. 2010; 96(7) :1911 -30. Not Available [facility] ([facility]) [address] [place], [address], 04/16/2025 09:05:24 04/11/20 25 04/15/2025 VITAM IN B1 (THIA MINE) , BLOOD vit. B1, whole blood 104.4 nmol/ L 66.5-2 00.0 Not Available [facility] ([facility]) [address] [place], [address], 04/16/2025 09:05:24 04/11/20 25 04/12/2025 HOMOC YST(E )INE homocyst(E)i ne 8.9 umol/ L 0.0-14 .5 Not Available [facility] ([facility]) [address] [place], [address], 04/16/2025 09:05:25 04/11/20 25 04/12/2025 INSUL IN insulin 11.5 uIU/m L 2.6-24 .9 normal Not Available [facility] ([facility]) [address] [place], [address], 04/16/2025 09:05:25 04/11/20 25 04/12/2025 MASSIMO TIN ferritin 15 NG/mL 15-150 normal Not Available [facility] ([facility]) [address] [place], [address], 04/16/2025 09:05:26 04/11/20 25 04/13/2025 PTH, INTAC T PTH, intact 31 pg/mL 15-65 normal Not Available [facility] ([facility]) [address] [place], [address], 04/16/2025 09:05:27 04/09/20 25 04/09/2025 XR, upper gastr ointe vipul l serie s No observ ation record ed. [email or web address] Not Available 2024 13:08:11 Result Notes None recorded. Problems Name Problem SNOMED Code Status Onset Date Resolution Date Notes Provider Name and Address Organization Details Recorded Time Obesity 183101427 Active María Gant, MSN, ANP-BC [address], [address] [facility], [place], [place], [address] [place] [address] , [facility] 3 07:55:47 Asthma 260441177 Active María Gant, MSN, ANP-BC [address] [facility], [address], [place], [place], [address] [place] [address] , [facility] 3 07:56:01 History of sleeve gastrectom y 261522834072 107 Active JAQUELINE FIELDS, IMPLEMENTATION PROJECT MANAGER [address] [facility], [address], [address] [place] [address] , [facility] 5 14:50:07 Supraventr icular tachycardi a 2198282 Active JAQUELINE FIELDS, IMPLEMENTATION PROJECT MANAGER [address] [place] [address], Suite [facility], [place], [place], [address] [place] [address] , [facility] 5 14:54:39 Morbid obesity 023610530 Active 2023 Sepideh Escamilla [facility] 4 08:11:13 Dietary management surveillan ce Active 2023 Rosario Rich, MS/RD [address] [facility], [address], [address] [place] [address] , [facility] 4 23:18:05 Exercises education, guidance, and counseling Active 2023 Rosario Rich, MS/RD [address] [employer] [facility], [address] [place] [address], [address] [place] [address] , [facility] 4 23:18:14 Problem Notes None recorded. Procedures Surgical History Date Name Laterality Status Provider Name and Address Organization Details Recorded Time 04/09/20 25 UGI GASTRIC SLEEVE completed María Gant, MSN, ANP- [address] [facility], [address], [place], [address], [facility] 04/09/2025 13:24:54 03/30/20 24 UGI GASTRIC SLEEVE completed Valente Marroquin MD [address] [facility], [address], [place], [address], [facility] 03/30/2024 09:09:20 03/22/20 24 LAPAROSCOPY, SURGICAL, GASTRIC RESTRICTIVE PROCEDURE; LONGITUDINAL GASTRECTOMY (SURG) completed JOZEF RODARTE [address] [facility], [address], [place], [address], [facility] 03/27/2024 14:34:47 08/23/20 23 UGI PREOP completed LEISA Mcleod, [address], [address] [facility], [place], [address], [facility] 08/24/2023 08:00:40 04/27/20 22 completed LEISA Mcleod, [address], [address] [facility], [place], [address], [facility] 08/23/2023 15:01:33 11/22/18 91 completed LEISA Mcleod, [address], [address] [facility], [place], [address], [facility] 08/23/2023 15:01:33 Imaging Results None recorded. Procedure Notes None recorded. Medical Equipment None Reported. Allergies Allergen ID Allergen Name Allergen Category Reaction Reaction Severity Criticality Documentation Date Start Date Code Code System Note Provider Name and Address Organization Details Recorded Time 75279 Product containin g penicilli n (product) medicatio n anaphylax is rash Not available Not available Not available 08/23/2023 30168 8001 SNOMED LEISA Mcleod, [address], [address], [place], [address], [facility] 15:01:17 97603 amoxicill in medicatio n anaphylax is rash Not available Not available Not available 08/23/2023 723 RxNorm LEISA Mcleod, [place] [address], [address], [place], [address], [facility] 3 15:01:17 71905 latex environme nt,medica tion Not available Not available Not available 03/13/2024 10409 91 RxNorm María Gant, MSN, [place] [address] [facility], [address], [place], [address], [facility] 4 14:35:54 08240 tree nut food Not available Not available Not available 03/13/2024 María Gant, MSN, [address], [address], [place], [address], [facility] 4 14:36:00 Medications Name Sig Start Date Stop Date Status Note LastModified by Organization Details LastModified Time terconazole 0.4 % vaginal cream 1 JANCIE VAG EVERY DAY AT BEDTIME,X 7 DAY(S) [...] Updated DateTime 11/29/2024 157.48 cm 31.9 kg/m2 91536.82 g Renetta Vanessa, MS/RD [address] [facility], [address], [address] [place] [address] 11/29/2024 13:48:46 Date Recorded Body height Body mass index (BMI) Body weight Heart rate Systolic And Diastolic Provider Name and Address Organization Details Last Updated DateTime 11/29/2024 157.48 cm 31.9 kg/m2 62773.82 g 81 /min 106/66 mm[Hg] Sepideh Escamilla [facility] 13:35:21 Date Recorded Systolic And Diastolic Provider Name and Address Organization Details Last Updated DateTime 04/09/2025 108/78 mm[Hg] María Gant MSN, [facility], [address] [place] [address] 04/09/2025 12:20:35 Date Recorded Body height Body mass index (BMI) Body weight Heart rate Provider Name and Address Organization Details Last Updated DateTime 04/09/2025 157.48 cm 25.8 kg/m2 57859.27 g 79 /min Sepideh Escamilla [facility] 04/09/2025 11:54:53 Date Recorded Body height Body mass index (BMI) Body weight Provider Name and Address Organization Details Last Updated DateTime 06/21/2024 157.48 cm 31.7 kg/m2 06838.63 g Rosario Rich, MS/RD [address] [facility], [address], [address] [place] [address] Services 06/21/2024 23:18:27 Date Recorded Body height Body mass index (BMI) Body weight Heart rate Systolic And Diastolic Provider Name and Address Organization Details Last Updated DateTime 06/22/2024 157.48 cm 31.9 kg/m2 67864.82 g 85 /min 114/75 mm[Hg] Suma Coleman [facility] 07:58:25 Social History Question Answer Notes LastModified by Organizat ion Details LastModified Time Tobacco Smoking Status Former Smoker María Gant, MSN, ANP- [address] [facility], [address], [place], [address], [facility] 08/23/2023 15:01:51 Which Illicit Or Recreational Drugs Have You Used? No Information not available 08/23/2023 What Is The Highest Grade Or Level Of School You Have Completed Or The Highest Degree You Have Received? [id number] Information not available 08/23/2023 Who Is Your Employer? [employer] Information not available 08/23/2023 What Is Your Relationship Status? Single Information not available 08/23/2023 How Much Tobacco Do You Smoke? 1 PPW Information not available 08/23/2023 Sex: Female Functional Status Question Answer Note LastModified by Organizat ion Details LastModified Time What is your level of alcohol consumption? 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 Information not available 08/23/2023 Mental Status Question Answer Note LastModified by Organization D etails LastModified Time Do you feel stressed (tense, restless, nervous, or anxious, or unable to sleep at night)? [id number] Information not available 08/23/2023 Family History Relationship [...] ICD10 Code Diagnosis IMO Codes Diagnosis Note [id number] María Gant, MSN, ANP-BC [employer]OL CLERK [address] [address] 08/23/2023 14:57:05 08/24/2023 08:06:48 Morbid obesity 203251940 E66.01 R53.83 Morbid Obesity with a BMI of 39.9 Bariatric surgery. The patient has received in office education on the sleeve gastrectom y and Trinh en Y procedure. As part of the pre-surgic al pathway the patient will complete the following: - An online seminar- Attend two support groups- Nutritiona l evaluation with a Varnisher Apprentice- Upper GI- Preoperati ve comprehens abdi lab [...] aforementi oned informatio n and consult taylor sYolanad Asthma [id number] J45.90 9 Pulmonary clearance. Compliance with inhalers recommende dYolanda [id number] GALINDO STEELE MS, RD TSB_[facility] [address] [place] [address] [place] [address] 3 08/30/2023 13:58:07 08/31/2023 12:12:50 Exercises education, guidance, and counseling [id number] Z71.89 Dietary ma nagement surveillance 856726854 Z71.3 [id number] MD SHARIF Gustafson_[employer] CONTROL CLERK [address] [place] [address] [place] [address] 3 09/21/2023 15:18:38 09/21/2023 17:19:52 Morbid obesity 813855991 E66.01 Dietary ma nagement surveillance 592519205 Z71.3 Exercises education, guidance, and counseling [id number] Z71.82 [id number] GALINDO STEELE MS, RD [facility]SB[facility] [address] [place] [place] [address] 3 10/05/2023 10:28:35 10/06/2023 12:15:50 Exercises education, guidance, and counseling [id number] Z71.89 Dietary ma nagement surveillance 313533508 Z71.3 [id number] GALINDO STEELE MS, RD TSB_[facility] [address] [place], [place] [address] 3 11/02/2023 15:23:42 11/03/2023 12:47:02 Exercises education, guidance, and counseling 506077020 Z71.89 Dietary ma nagement surveillance 028120988 Z71.3 [id number] GALINDO STEELE MS, RD TSB_[facility] [address] [place], [place] [address] 3 11/30/2023 15:33:19 12/01/2023 12:17:39 Exercises education, guidance, and counseling [id number] Z71.89 Dietary ma nagement surveillance [id number] Z71.3 [id number] MD FLORENTIN Gustafson RETAIL INVENTORY CONTROL CLERK [address] [facility] [place] [address] 01/20/2024 14:54:11 01/20/2024 15:27:06 Morbid obesity [id number] E66.01 Dietary ma nagement surveillance 991893541 Z71.3 Exercises education, guidance, and counseling [id number] Z71.82 [id number] GALINDO STEELE MS, RD B_[facility] [address] [facility] [place] [address] 02/01/2024 10:30:02 02/02/2024 13:53:55 Exercises education, guidance, and counseling [id number] Z71.89 Dietary ma nagement surveillance 808594605 Z71.3 [id number] GALINDO STEELE MS, RD B_[facility] [address] [facility] [place] [address] 3 02/29/2024 15:35:02 03/01/2024 12:48:26 Exercises education, guidance, and counseling [id number] Z71.89 Dietary ma nagement surveillance 985101575 Z71.3 [id number] MD FLORENTIN Gustafson RETAIL INVENTORY CONTROL CLERK [address] [facility] [place] [address] 3 03/09/2024 08:05:52 03/09/2024 08:55:35 Morbid obesity 371522670 E66.01 Dietary ma nagement surveillance 341090640 Z71.3 Pre-surger y evaluation 923247267 Z01.818 [id number] María Gant, MSN, ANP-BC FLORENTIN RETAIL INVENTORY CONTROL CLERK [address] [facility] [place] [address] 03/13/2024 13:51:22 03/13/2024 14:58:54 Asthma [id number] J45.909 Pt to use Breo before arrival to hospital. Obesity 368050324 E66.9 Morbid obesity, BMI 38.8 and co-morbidi ties. Patient qualifies for bariatric surgery by NIH criteria. Patient is scheduled for Laparoscop ic sleeve gastrectom y at [facility] on 03/22/24All pre and post operative instructio ns reviewed with patient including dietary, activity and medication management . Good understand ing noted.PST appt confirmed for 03/17 at 7am. [id number] GALINDO STEELE MS, RD B_[facility] [address] [place] [address] 03/28/2024 15:33:55 03/29/2024 14:15:10 Exercises education, guidance, and counseling 234458981 Z71.89 Dietary ma nagement surveillance 328317694 Z71.3 [id number] MD SHARIF Gustafson_ALEJA RETAIL INVENTORY CONTROL CLERK [address] [place] [address] 3 03/30/2024 08:01:48 03/30/2024 08:52:27 Bariatric operative procedure [id number] Z90.3 Morbid obesity 386613754 E66.01 Dietary ma nagement surveillance 633353206 Z71.3 [id number] Renetta Vanessa MS/RD B_[facility] [address] [place] [address] 04/03/2024 11:19:03 04/04/2024 11:02:38 Exercises education, guidance, and counseling 105983924 Z71.89 Dietary ma nagement surveillance 406447072 Z71.3 [id number] GALINDO STEELE MS, RD B_[facility] [address] [place] [address] 04/18/2024 10:01:06 04/19/2024 11:51:06 Exercises education, guidance, and counseling 129742207 Z71.89 Dietary ma nagement surveillance 012532710 Z71.3 [id number] GALINDO STEELE MS, RD B_[facility] [address] [place] [address] 05/10/2024 08:49:10 05/11/2024 11:48:12 Exercises education, guidance, and counseling 083623426 Z71.89 Dietary ma nagement surveillance 809725851 Z71.3 [id number] MD FLORENTIN Gustafson RETAIL INVENTORY CONTROL CLERK [address] [facility] [place] [address] 3 05/11/2024 14:32:23 05/11/2024 15:03:53 Obesity 336830234 E66.9 Dietary ma nagement surveillance 427654741 Z71.3 Exercises education, guidance, and counseling 399778193 Z71.82 History of sleeve gastrectomy [id number] 75910 Z90.3 [id number] Rosario Rich, MS/RD [facility] [address] [facility] [address] [place] [address] 06/21/2024 16:30:59 06/21/2024 23:17:36 Dietary management surveillance 502163630 Z71.3 Exercises education, guidance, and counseling 517251658 Z71.82 [id number] MD FLORENTIN Gustafson RETAIL INVENTORY CONTROL CLERK [address] [facility] [place] [address] 06/22/2024 07:50:09 06/22/2024 08:08:59 Obesity 035787373 E66.9 Dietary ma nagement surveillance 470856181 Z71.3 Exercises education, guidance, and counseling 436762172 Z71.82 History of sleeve gastrectomy 4746067124 33655 Z90.3 Morbid obesity 722258363 E66.01 [id number] HE PATEL RETAIL INVENTORY CONTROL CLERK [address] [facility] [place] [address] 11/29/2024 13:31:35 11/29/2024 14:26:52 Morbid obesity 431766885 E78.2 E55.[address] f/u completed as well today.- adherence to dietary guidelines encouraged Vitamins: MVI patchAvoid NSAID useEncoura ged support group attendance .15-30 minutes of cardio 3-5x/week as tolerated encouraged .Minimum of 64 oz of water/VLCF daily recommende d. Avoid SSBsLabs due, rx provided.R TO in 2 months for IMPLEMENTATION PROJECT MANAGER/RD follow up [id number] Renetta Vanessa, MS/JAMAL LERMA RETAIL INVENTORY CONTROL CLERK [address] [facility] [place] [address] 11/29/2024 13:47:37 11/29/2024 14:52:57 Exercises education, guidance, and counseling 605750882 Z71.89 Dietary ma nagement surveillance 177921417 Z71.3 [id number] María Gant, MSN, ANP-BC FLORENTIN RETAIL INVENTORY CONTROL CLERK [address] [address] 04/09/2025 11:48:58 04/09/2025 12:27:25 Overweight 435551911 E66.3 R53.83 [id number] Reviewed diet: Phase 3 dietary guidelines and protein intake goals reviewed. See RD Vitamins- restart vitamin patch Avoid NSAID use Encouraged support group attendance . Exercise - conitnue gym workouts., Minimum of 64 oz of water/suga r free/fat free liquids daily recommende d.UGI is WNL RTO with IMPLEMENTATION PROJECT MANAGER/RD Supraventr icular tachycardia 0235688 I47.10 F/u with cardiology . Health Concerns Section Related Observation LastModified by Organization Detai ls LastModified Time None Recorded Concern Status LastModified by Organization Details LastModified Time None Recorded Advance Directives Directive None Recorded Payers Insurance Date Sequence Insurance Name Policy Number Policy Le Covered Member ID Le Member ID Guarantor Name 08/16/2024 2 [place] Siria Secone [id number] Siria Secone 07/13/2024 1 [facility] (O) [id number] Stephen Mujica [id number] Siria Secone 09/27/2024 1 [facility] ([facility]) [id number] Stephen Mujica [id number] Siria Secone 09/23/[address] [facility] (MEDICAID HMO) [id number] Siria Secone [id number] Siria Secone Notes Date Note Type Note Provider Name and Address Organization Details Recorded Time 4 text/html Post sleeve f/u diet gambling counsellor/phone consult (attempted telehealth but connection was poor); [...] more watery vegetables/fruit well, but struggles with drier and pulverizer tender, more dense vegetables; she reported hair loss/shedding; [...] crystal lightExercise-adls Rosario Rich, MS/RD [address], [address], [place], [address], [facility] 06/22/2024 09:49:31 4 text/html Patient presents s/p robotic assisted laparoscopic sleeve gastrectomy for morbid obesity on 03/22/24 month follow up s/p gastric SleevectomyTodays wt. 174.5lbs and BMI 31.9Tolerating oral intake. Exercising Daily , Having normal bowel movements regularly. Utilizing [employer] Pal janice. Valente Marroquin MD [address], [address], [place], [address], [facility] 06/22/2024 08:17:42 5 text/html Presents today for IMPLEMENTATION PROJECT MANAGER follow up.s/p Sleeve Gastrectomy 03/2024.Denies any issues/concerns re: sleeve.Reports more frequent episodes of SVT over the last 3 months, attributes to increased stress (family court/custody) and is scheduled for Cardiology f/u today. + history of SVT preop.Drinking 64+ oz water/VLCF dailyProtein intake appears adequateVitamins: MVI patchDenies exercise regimen, physically active FT job. JAQUELINE FIELDS, HE [address], [address], [place], [address], [facility] 11/29/2024 14:55:45 5 text/html Post (sleeve-03/22/24) f/u diet gambling counsellor- Pt lost 0 lbs- states feels well, hunger low; denies n/v/sticking/abdominal pain or heartburn. Denies pain while eating. Taking MV Patch. Goal weight: 165 lbs. 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 María Gant, MSN, ANP- [address], [address], [place], [address], [facility] 04/09/2025 13:25:49 OBGyn Episode No OBEpisode recorded.
--- OUTSIDE RECORDS SUMMARY | 2025-11-16 13:46 | XMS_ITS | Patient Health Record ---
Author Organization [facility] OPERATION AGENT, Address [address] [place] [address] Care Team Providers Care Procurement Services Manager Name Role Phone NO, PCP Primary Care Provider Adiel Vilchis Unavailable [phone] Allergies Allergen (clinical drug ingredient) Drug/Non Drug [...] 09/17/2025 Encounters Encounter Location Date Provider Diagnosis [facility] OPERATION AGENT, [address] [place] [address] 09/17/2025 Adiel Zuniga Viral URI J06.9 Assessments Encounter Date Diagnosis (ICD Code) Assessment Notes Treatment Notes Treatment Clinical Notes Section Notes 09/17/2025 Viral URI (ICD-10 - J06.9) Plan Of Treatment No Information Insurance Providers Payer Name Payer Address Payer Phone Subscriber Number Group Number Insured Name Patient Relationship to Insured Coverage Start Date Coverage End Date [facility] [address] [place] [address] [id number] Siria Morrison Self - patient is the insured Medical (General) History Medical History History ICD Code Asthma
--- OUTSIDE RECORDS SUMMARY | 2025-11-16 13:46 | XMS_ITS | Data Portability ---
Author Organization [facility], G_Endocrinology_73_[facility] Address [address] [place] [id number] Assessment No assessment recorded. Plan of Treatment Reminders Order Date Submit Date Provider Last Modified By Organization Details Last Modified Time Details Appointments None recorded. Lab CBC w/ diff 2022 023 [facility], [address] [place] [address], [facility] 3, [place], [address], 14:52:50 CMP, serum or plasma 2022 023 [facility], [address] [place] [address], [facility] 3, [place], [address], 08:19:30 hepatitis (A+B+C) panel, serum 2022 023 [facility], [address] [place] [address], [address], [place], [address], 08:19:29 tb (M tuberculosi s), ifn-gamma kobi, blood 2022 023 [facility] [place] [facility], [address] [place] [address], [address], [place], [address], 14:52:52 Referral None recorded. Procedures None recorded. Surgeries None recorded. Imaging None recorded. Medication Orders Skyrizi 150 mg/mL subcutaneou s pen injector 2022 023 TEL[facility], [address], [address], [place], [place], [id number], 3 08:19:23 Stelara 90 mg/mL subcutaneou s syringe 2021 022 TELMA [facility], [address], [address], [place], [place], [id number], 09:07:19 Patient TargetsNo targets recorded. Patient Instructions Encounter Date Encounter Id Patient Instructions Last Modified By Organization Details Last Modified Time 01/11/2023 [id number] I have discussed or re-discussed the following [...] x10e3 /uL 3.4-10 .8 normal Not Available [facility] [address] [facility] 3, [place], [address], 01/27/2023 14:52:50 01/27/2001/26/2023 COMPL ETE BLOOD COUNT W/ DIFF hematocrit 38.7 % 34.0-4 6.6 normal Not Available [facility] [address] [facility], [place], [address], 01/27/2023 14:52:50 01/27/20 23 01/26/2023 COMPL ETE BLOOD COUNT W/ DIFF platelets 221 x10e3 /uL 150-45 0 normal Not Available [facility] [address] [place], [place] [address]r 3, [place], [address], 01/27/2023 14:52:50 01/27/20 23 01/26/2023 COMPL ETE BLOOD COUNT W/ DIFF neutrophils (absolute) 4.1 x10e3 /uL 1.4-7. 0 normal Not Available [facility] [address] [place], [place] [address]r 3, [place], [address], 01/27/2023 14:52:50 01/27/20 23 01/26/2023 COMPL ETE BLOOD COUNT W/ DIFF lymphs (absolute) 1.6 x10e3 /uL 0.7-3. 1 normal Not Available [facility] [address] [place], [place] [address]r 3, [place], [address], 01/27/2023 14:52:50 01/27/20 23 01/26/2023 COMPL ETE BLOOD COUNT W/ DIFF monocytes(ab solute) 0.3 x10e3 /uL 0.1-0. 9 normal Not Available [facility] [address] [place], [place] [address]r 3, [place], [address], 01/27/2023 14:52:50 01/27/20 23 01/26/2023 COMPL ETE BLOOD COUNT W/ DIFF eos (absolute) 0.2 x10e3 /uL 0.0-0. 4 normal Not Available [facility] [address] [place], [place] [address]r 3, [place], [address], 01/27/2023 14:52:50 01/27/20 23 01/26/2023 COMPL ETE BLOOD COUNT W/ DIFF baso (absolute) 0.1 x10e3 /uL 0.0-0. 2 normal Not Available [facility] [address] [place], [place] [address]e [address], [place], [address], 01/27/2023 14:52:50 01/27/20 23 01/26/2023 COMPL ETE BLOOD COUNT W/ DIFF neutrophils 67 % not estab. normal Not Available [facility] [address], [place], [address], 01/27/2023 14:52:50 01/27/20 23 01/26/2023 COMPL ETE BLOOD COUNT W/ DIFF lymphs 25 % not estab. normal Not Available [facility] [address], [place], [address], 01/27/2023 14:52:50 01/27/20 23 01/26/2023 COMPL ETE BLOOD COUNT W/ DIFF monocytes 5 % not estab. normal Not Available [facility] [address], [place], [address], 01/27/2023 14:52:50 01/27/20 23 01/26/2023 COMPL ETE BLOOD COUNT W/ DIFF eos 2 % not estab. normal Not Available [facility] [address], [place], [address], 01/27/2023 14:52:50 01/27/20 23 01/26/2023 COMPL ETE BLOOD COUNT W/ DIFF basos 1 % not estab. normal Not Available [facility] [address], [place], [address], 01/27/2023 14:52:50 01/27/20 23 01/26/2023 COMPL ETE BLOOD COUNT W/ DIFF RBC 4.76 x10e6 /uL 3.77-5 .28 normal Not Available [facility] [address], [place], [address], 01/27/2023 14:52:50 01/27/20 23 01/26/2023 COMPL ETE BLOOD COUNT W/ DIFF MCV 81 fL 79-97 normal Not Available [facility] [address], [place], [address], 01/27/2023 14:52:50 01/27/20 23 01/26/2023 COMPL ETE BLOOD COUNT W/ DIFF MCH 26.7 pg 26.6-3 3.0 normal Not Available [facility] [address], [place], [address], 01/27/2023 14:52:50 01/27/20 23 01/26/2023 COMPL ETE BLOOD COUNT W/ DIFF MCHC 32.8 g/dL 31.5-3 5.7 normal Not Available [facility] [address], [place], [address], 01/27/2023 14:52:50 01/27/20 23 01/26/2023 COMPL ETE BLOOD COUNT W/ DIFF RDW 16.6 % 11.7-1 5.4 high Not Available [facility] [address], [place], [address], 01/27/2023 14:52:50 01/27/20 23 01/26/2023 COMPL ETE BLOOD COUNT W/ DIFF Unknown Analyte 12.7 g/dL 11.1-1 5.9 normal Not Available [facility] [address], [place], [address], 01/27/2023 14:52:50 01/27/20 23 01/26/2023 COMPL ETE BLOOD COUNT W/ DIFF immature granulocytes 0 % not estab. normal Not Available [facility] [address], [place], [address], 01/27/2023 14:52:50 01/27/20 23 01/26/2023 COMPL ETE BLOOD COUNT W/ DIFF immature grans (abs) 0.0 x10e3 /uL 0.0-0. 1 normal Not Available [facility] [address], [place], [address], 01/27/2023 14:52:50 01/27/20 23 01/26/2023 CMET glucose 80 mg/dL 70-99 normal Not [facility] [address] [facility] [address], [place], [address], 01/27/2023 14:52:51 01/27/20 23 01/26/2023 CMET BUN 16 mg/dL 6-20 normal Not Available [facility] [address] [place], [place] [address]e [address], [place], [address], 01/27/2023 14:52:51 01/27/20 23 01/26/2023 CMET creatinine 0.71 mg/dL 0.57-1 .00 normal Not Available [facility] [address] [place], [place] [address]e [address], [place], [address], 01/27/2023 14:52:51 01/27/20 23 01/26/2023 CMET eGFR 122 mL/mi n/1.7 3 >59 normal Not Available [facility] [address] [place], [place] [address]e [address], [place], [address], 01/27/2023 14:52:51 01/27/20 23 01/26/2023 CMET BUN/creatini ne ratio 23 9-23 normal Not Available [facility] [address] [facility] [address], [place], [address], 01/27/2023 14:52:51 01/27/20 23 01/26/2023 CMET sodium 141 mmol/ L 134-14 4 normal Not Available [facility] [address] [place], [place] [address]e [address], [place], [address], 01/27/2023 14:52:51 01/27/20 23 01/26/2023 CMET potassium 5.1 mmol/ L 3.5-5. 2 normal Not Available [facility] [address] [place], [place] [address]e [address], [place], [address], 01/27/2023 14:52:51 01/27/20 23 01/26/2023 CMET chloride 104 mmol/ L 96-106 normal Not Available [facility] [address], [place], [address], 01/27/2023 14:52:51 01/27/20 23 01/26/2023 CMET carbon dioxide, total 25 mmol/ L 20-29 normal Not Available [facility] [address] [place], [place] [address]e [address], [place], [address], 01/27/2023 14:52:51 01/27/20 23 01/26/2023 CMET calcium 9.6 mg/dL 8.7-10 .2 normal Not Available [facility] [address] [place], [place] [address]r 3, [place], [address], 01/27/2023 14:52:51 01/27/20 23 01/26/2023 CMET protein, total 6.9 g/dL 6.0-8. 5 normal Not Available [facility] [address] [place], [place] [address]r 3, [place], [address], 01/27/2023 14:52:51 01/27/20 23 01/26/2023 CMET albumin 4.4 g/dL 3.9-5. 0 normal Not Available [facility] [address] [place], [place] [address]r 3, [place], [address], 01/27/2023 14:52:51 01/27/20 23 01/26/2023 CMET globulin, total 2.5 g/dL 1.5-4. 5 normal Not Available [facility] [address] [place], [place] [address]e [address], [place], [address], 01/27/2023 14:52:51 01/27/20 23 01/26/2023 CMET A/G ratio 1.8 1.2-2. 2 normal Not Available [facility] [address] [place], [place] [address]e [address], [place], [address], 01/27/2023 14:52:51 01/27/20 23 01/26/2023 CMET bilirubin, total 0.4 mg/dL 0.0-1. 2 normal Not Available [facility] [address] [facility] 3, [place], [address], 01/27/2023 14:52:51 01/27/20 23 01/26/2023 CMET alkaline phosphatase 107 IU/L 44-121 normal Not Available [facility], [place], [address], 01/27/2023 14:52:51 01/27/20 23 01/26/2023 CMET AST (SGOT) 16 IU/L 0-40 normal Not Avail able [facility] [address] [place] [address] 3, [place], [address], 01/27/2023 14:52:51 01/27/20 23 01/26/2023 CMET ALT (SGPT) 18 IU/L 0-32 normal Not Avail able [facility] [address] [place] [address] 3, [place], [address], 01/27/2023 14:52:51 01/27/20 23 01/26/2023 ACUTE HEPAT ITIS PANEL sent to ref lab[I] No Value Not Available [facility] [address] [place] [address] 3, [place], [address], 01/27/2023 14:52:52 01/27/20 23 01/26/2023 ACUTE HEPAT ITIS PANEL hep A Ab, IgM Negati ve negati ve normal Not Available [facility] [address] [place] [address] 3, [place], [address], 01/27/2023 14:52:52 01/27/20 23 01/26/2023 ACUTE HEPAT ITIS PANEL HBsAg screen Negati ve negati ve normal Not Available [facility] [address] [place] [address] 3, [place], [address], 01/27/2023 14:52:52 01/27/20 23 01/26/2023 ACUTE HEPAT ITIS PANEL hep B core Ab, IgM Negati ve negati ve normal Not Available [facility] [address] [facility] [address], [place], [address], 01/27/2023 14:52:52 01/27/20 23 01/26/2023 ACUTE HEPAT ITIS PANEL HCV Ab Non Reacti ve non reacti ve normal Not Available [facility] [address] [facility] [address], [place], [address], 01/27/2023 14:52:52 01/27/2001/26/2023 ACUTE HEPAT ITIS PANEL interpretati on: Commen t Not infec gwendolyn with HCV unles s early or acute infec tion is suspe cted (whic h may be delay ed in an immun ocomp romis ed indiv idual ), or other evide nce exist s to indic ate HCV infec tion. Not Available [facility] [address] [facility], [place], [address], 01/27/2023 14:52:52 01/27/20 23 01/26/2023 QUANT IFERO N PM - TB GOLD PLUS quantiferon incubation INCUBA TION PERFOR MED. Not Available [facility] [address] [facility], [place], [address], 01/27/2023 14:52:52 01/27/20 23 01/26/2023 QUANT IFERO [...] oassa y metho dolog y Not Available [facility] [address] [facility] [address], [place], [address], 01/27/2023 14:52:52 01/27/20 23 01/26/2023 QUANT IFERO [...] contr ol for the test. Not Available [facility] [address] [facility] [address], [place], [address], 01/27/2023 14:52:52 01/27/20 23 01/26/2023 QUANT IFERO N PM - TB GOLD PLUS quantiferon TB1 Ag value 0.00 IU/mL Not Available [facility] [address], [place], [address], 01/27/2023 14:52:52 01/27/20 23 01/26/2023 QUANT IFERO N PM - TB GOLD PLUS quantiferon TB2 Ag value 0.00 IU/mL Not Available [facility] [address], [place], [address], 01/27/2023 14:52:52 01/27/20 23 01/26/2023 QUANT IFERO N PM - TB GOLD PLUS quantiferon nil value 0.00 IU/mL Not Available [facility] [address], [place], [address], 01/27/2023 14:52:52 01/27/20 23 01/26/2023 QUANT IFERO N PM - TB GOLD PLUS quantiferon mitogen value >10.00 IU/mL Not Available [facility] [address] [facility] 3, [place], [address], 01/27/2023 14:52:52 Result Notes None recorded. Problems Name Problem SNOMED Code Status Onset Date Resolution Date Notes Provider Name and Address Organization Details Recorded Time Flexural psoriasis [id number] Active 2014 Descriptio n: OTHER PSORIASIS AND SIMILAR DISORDERS Not Available [facility] 3 14:49:03 Notes:Some problems listed i n Documents: #[id number], #[id number] could not be added to this patient's chart. Please review these documents and add these problems to the patient's chart manually as needed. Problem Notes None recorded. Medical Equipment None Reported. Allergies Allergen ID Allergen Name Allergen Category Reaction Reaction Severity Criticality Documentation Date Start Date Code Code System Note Provider Name and Address Organization Details Recorded Time 824094 amoxicill in medicatio n Not available Not available Not available 09/10/20212016 723 RxNorm Sever ity: Criti nithin Entry Date: 03/31 Not Available [facility] 1 15:26:14 Medications Name Sig Start [...] Tobacco Smoking Status Never Smoker Not Available [facility] 09/23/2021 21:54:40 What Was The Date [...] ICD10 Code Diagnosis IMO Codes Diagnosis Note [id number] Ella Sheppard NP [facility] [address] [address] [place] [address] 01/15/2022 08:27:57 01/15/2022 09:08:07 Plaque psoriasis 214887681 L40.0 Stelara 90 mg , still flaring quite a bitNever clears her thick scalp psroasis.C louis Huang led all topicalsFa iled nUVBLab work completed and WNL Scalp and trunk - thick plaques [id number] Regis Green MD [facility]_21 [facility] [address] [place] [address] 01/11/2023 07:44:15 01/11/2023 08:33:04 Psoriasis vulgaris 089061239 L40.0 flared after stopping Skyrizi , will [...] Member ID Guarantor Name 01/07/2023 1 [facility] [id number] Siria Secone [id number] AB Siria Secone 01/07/2023 1 [facility] [id number] Stephen Mujica [id number] Siria Secone Notes Date Note Type Note Provider Name and Address Organization Details Recorded Time 2 text/html plaque psoriasiscurrently on stelara 90 mgdoes not ever clearhas significant scalp and trunk plaques Ella Sheppard NP [address] [facility],[address], [place], [address], [facility] 01/15/2022 09:08:01 3 text/html psoriasis follow upStelara restart pt stopped skyrizi based upon now not , has flared and wants to restart Regis Green MD [address] [place] [address],[address], [place], [address], [facility] 01/11/2023 08:19:43 OBGyn Episode No OBEpisode recorded.
== END 2025-11-16 14:33 | disposition home or self-care (01) ==
LOC: HO.HMCH 13:42
DX: S06.9X9D Unspecified intracranial injury with loss of consciousness of unspecified duration, subsequent encounter (principal); L40.9 Psoriasis, unspecified; F43.10 Post-traumatic stress disorder, unspecified; I47.10 Supraventricular tachycardia, unspecified; G43.909 Migraine, unspecified, not intractable, without status migrainosus; J45.30 Mild persistent asthma, uncomplicated; Z76.89 Persons encountering health services in other specified circumstances

== ENCOUNTER → 2025-11-16 13:41 | Outpatient (BNVA) | payer OTHER, SELFPAY | DX: L04.9 Acute lymphadenitis, unspecified (principal); F43.10 Post-traumatic stress disorder, unspecified; I47.10 Supraventricular tachycardia, unspecified; G43.909 Migraine, unspecified, not intractable, without status migrainosus; S06.9X9D Unspecified intracranial injury with loss of consciousness of unspecified duration, subsequent encounter; J45.30 Mild persistent asthma, uncomplicated; Z76.89 Persons encountering health services in other specified circumstances | CPT/HCPCS: 96127 ==